=== PATIENT | male | born 1960 | race Caucasian/White ===

== ENCOUNTER → 2020-09-04 15:43 | Outpatient (BNVA) | payer OTHER, SELFPAY | PROVIDERS: PCP Internal Medicine; Visit Provider Anesthesiology | DX: Z76.89 Persons encountering health services in other specified circumstances (principal) ==

== ENCOUNTER 2020-09-15 08:47 | Outpatient (RCR) | payer OTHER, SELFPAY ==
--- NOTE | 2020-09-15 10:34 | MHC.PT.EP ---
[facility] [place] Office [place] Office [place] Office [address] Ace Quiles [address] [phone] F: [phone] F: [phone] F: [phone] F: [phone] Physical Therapy Plan of Care Date of Evaluation: 09/15/20 Date of Surgery: Diagnosis: cervical spondylosis without myelopathy Assessment: 59 y/o RHD male referred to PT with cervical spondylosis without myelopathy or radiculopathy. He has had on/off cervical pain for years that has recently worsened. His pain is located R cervical region and worse with R rotation, R lateral flexion, looking down, bending forward, and lifting. Examination shows decreased cervical AROM, (+) quadrant test, decreased scapular strength, and impaired postural awareness. Recommend PT 2x/week for 3 weeks to address impairments, implement HEP, and optimize functional mobility. He just bought a cervical traction machine that he will bring in next visit to review. 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 Manual therapy to restore motion and function. Therapeutic exercise to improve strength and flexibility. Neuromuscular re-education for posture and balance. Therapeutic activities to return to functional activities of daily living. Electronically signed by: Clary Jimenez PT Please sign and return to therapist. Thank you for your referral.
--- NOTE | 2020-09-19 08:17 | MHC.PT.DC ---
[facility] [place] Office [place] Office [place] Office [address] Ace Quiles 140 [facility] [phone] F: [phone] F: [phone] F: [phone] F: [phone] Physical Therapy Discharge Report Diagnosis: cervical spondylosis without myelopathy Date of Evaluation: 09/15/20 Date of Discharge: 09/19/20 Treatments to Date: 1 Cancellations to Date: 0 No Shows to Date: 0 Discharge Status: Patient Elected to Stop Discharge Summary: Pt called to self discharge as he is worried about the cost, since insurance does not fully cover PT. Electronically signed by: Clary Jimenez PT Please sign and return to therapist. Thank you for your referral.
== END 2020-09-19 08:18 | disposition other institution (70) ==
LOC: HO.PTCHIC 08:47
PROVIDERS: PCP Internal Medicine; Visit Provider Anesthesiology
DX: M47.812 Spondylosis without myelopathy or radiculopathy, cervical region (principal)
CPT/HCPCS: 97110; 97161

== ENCOUNTER 2020-09-23 05:07 | Outpatient (REF) | payer OTHER, SELFPAY ==
--- NOTE | 2020-09-23 07:31 | FL_ITS ---
EXAMINATION: XR FLUOROSCOPY WITH IMAGES CLINICAL INFORMATION: M47.812 - Spondylosis without myelopathy or radiculopathy COMPARISON: MRI cervical spine 05/19/2019 TECHNIQUE: Fluoroscopy performed by Kaitlin David NP. Fluoroscopy time: 0.6 minutes DAP: 4.63 Gycm2 Images: 6 FINDINGS: There are 4 spinal needles overlying the mid to lower right lateral masses cervical spine at 4 levels. There is contrast in the paraspinal soft tissues as well as contrast in the nerve sheath. No visible vascular communication. FL/FL guidance in treatment room IMPRESSION: Fluoroscopy for pain management procedures.
== END 2020-09-23 05:08 | disposition home or self-care (01) ==
LOC: HO.RADIR 05:07
PROVIDERS: Visit Provider Anesthesiology
DX: M47.812 Spondylosis without myelopathy or radiculopathy, cervical region (principal); M54.2 Cervicalgia
CPT/HCPCS: 64490; 64491; J3300; Q9967

== ENCOUNTER → 2020-10-13 16:18 | Outpatient (BNVA) | payer OTHER, SELFPAY | PROVIDERS: PCP Internal Medicine; Visit Provider Anesthesiology | DX: Z76.89 Persons encountering health services in other specified circumstances (principal) ==

== ENCOUNTER → 2020-11-05 14:32 | Outpatient (BNVA) | payer OTHER, SELFPAY | PROVIDERS: PCP Internal Medicine; Visit Provider Anesthesiology ==

== ENCOUNTER 2021-02-09 11:12 | Outpatient (REF) | payer OTHER, SELFPAY ==
[2021-02-09 14:44] LABS: Alanine Aminotransferase 19 U/L (0-40); Anion Gap 17 (12-20); Aspartate Amino Transferase 16 U/L (5-37); Blood Urea Nitrogen 13 mg/dL (9-16); Calcium 9.4 mg/dL (8.4-10.2); Carbon Dioxide 24 mmol/L (22-29); Chloride 103 mmol/L (96-108); Cholesterol 249 mg/dL; Estimated Glomerular Filt Rate > 60; Glucose Fasting 97 mg/dL (60-99); HDL Cholesterol 65 mg/dL; LDL Cholesterol Calculated 161 mg/dl; Sodium 140 mmol/L (135-145); Triglycerides 116 mg/dL
== END 2021-02-09 11:13 | disposition home or self-care (01) ==
LOC: HO.HMGCLDS 11:12
PROVIDERS: PCP Internal Medicine; Visit Provider Internal Medicine
DX: Z00.01 Encounter for general adult medical examination with abnormal findings (principal); I10 Essential (primary) hypertension
CPT/HCPCS: 36415; 80048; 80061; 84450; 84460

== ENCOUNTER 2021-07-25 10:28 | Outpatient (REF) | payer OTHER, SELFPAY ==
[2021-07-25 11:28] LABS: Alanine Aminotransferase 21 U/L (0-40); Aspartate Amino Transferase 13 U/L (5-37); Cholesterol 244 mg/dL; HDL Cholesterol 73 mg/dL; LDL Cholesterol Calculated 140 mg/dl; Triglycerides 156 mg/dL
== END 2021-07-25 10:29 | disposition home or self-care (01) ==
LOC: HO.HMGCLDS 10:28
PROVIDERS: PCP Internal Medicine; Visit Provider Internal Medicine
DX: E78.2 Mixed hyperlipidemia (principal)
CPT/HCPCS: 36415; 80061; 84450; 84460

== ENCOUNTER → 2021-09-30 08:03 | Outpatient (BNVA) | payer OTHER, SELFPAY | PROVIDERS: PCP Internal Medicine; Visit Provider Anesthesiology ==

== ENCOUNTER 2022-03-13 10:47 | Outpatient (REF) | payer OTHER, SELFPAY ==
[2022-03-13 12:08] LABS: Alanine Aminotransferase 26 U/L (0-40); Anion Gap 13 (12-20); Aspartate Amino Transferase 16 U/L (5-37); Blood Urea Nitrogen 18 mg/dL (9-16); Calcium 9.3 mg/dL (8.4-10.2); Carbon Dioxide 27 mmol/L (22-29); Chloride 104 mmol/L (96-108); Cholesterol 261 mg/dL; Estimated Glomerular Filt Rate > 60; Glucose Fasting 93 mg/dL (60-99); HDL Cholesterol 75 mg/dL; LDL Cholesterol Calculated 159 mg/dl; Sodium 140 mmol/L (135-145); Triglycerides 137 mg/dL
== END 2022-03-13 10:48 | disposition home or self-care (01) ==
LOC: HO.HMGCLDS 10:47
PROVIDERS: PCP Internal Medicine; Visit Provider Internal Medicine
DX: E78.2 Mixed hyperlipidemia (principal); I10 Essential (primary) hypertension
CPT/HCPCS: 36415; 80048; 80061; 84450; 84460

== ENCOUNTER 2022-07-16 11:49 | Outpatient (REF) | payer OTHER, SELFPAY ==
[2022-07-16 14:37] LABS: Alanine Aminotransferase 17 U/L (0-40); Aspartate Amino Transferase 18 U/L (5-37); Cholesterol 277 mg/dL; HDL Cholesterol 67 mg/dL; LDL Cholesterol Calculated 182 mg/dl; Triglycerides 140 mg/dL
[2022-07-16 14:59] LABS: PSA,Total (Free>4and<10) 3.31 ng/mL (0.00-4.00)
== END 2022-07-16 11:50 | disposition home or self-care (01) ==
LOC: HO.HMGCLDS 11:49
PROVIDERS: PCP Internal Medicine; Visit Provider Internal Medicine
DX: Z12.5 Encounter for screening for malignant neoplasm of prostate (principal); E78.2 Mixed hyperlipidemia
CPT/HCPCS: 36415; 80061; 82550; 84153; 84450; 84460

== ENCOUNTER 2022-09-08 09:17 | Outpatient (REF) | payer OTHER, SELFPAY ==
[2022-09-08 12:47] LABS: Influenza A PCR NEGATIVE (Negative); Influenza B PCR NEGATIVE (Negative); Resp Syncy Virus RNA Qual PCR POSITIVE (Negative); SARS COV2 PCR INHOUSE NEGATIVE (Negative)
== END 2022-09-08 09:18 | disposition home or self-care (01) ==
LOC: HO.LAB 09:17
PROVIDERS: Visit Provider Nurse Practitioner Family
DX: J32.9 Chronic sinusitis, unspecified (principal); Z20.822 Contact with and (suspected) exposure to COVID-19
CPT/HCPCS: 0241U

== ENCOUNTER 2022-09-08 09:22 | Outpatient (REF) | payer OTHER, SELFPAY ==
--- NOTE | ~2022-09-08 | XR_ITS ---
EXAMINATION: XR KNEE, RIGHT CLINICAL INFORMATION: Pain in the right knee COMPARISON: 01/29/2013 TECHNIQUE: Two views of the right knee. FINDINGS: No fracture or subluxation. Compartmental joint spaces are maintained. No joint effusion. Enthesophyte formation at the patella. The soft tissues are unremarkable. XR/XR knee RT 2V IMPRESSION: No acute abnormality. No significant arthritic changes.
== END 2022-09-08 09:23 | disposition home or self-care (01) ==
LOC: HO.HMGCX 09:22
PROVIDERS: PCP Internal Medicine; Visit Provider Nurse Practitioner Family
DX: M25.561 Pain in right knee (principal)
CPT/HCPCS: 73560

== ENCOUNTER 2022-10-01 10:30 | Outpatient (REF) | payer OTHER, SELFPAY ==
[2022-10-01 12:19] LABS: Alanine Aminotransferase 30 U/L (0-40); Anion Gap 11 (12-20); Aspartate Amino Transferase 15 U/L (5-37); Blood Urea Nitrogen 17 mg/dL (9-16); Calcium 9.3 mg/dL (8.4-10.2); Carbon Dioxide 28 mmol/L (22-29); Chloride 104 mmol/L (96-108); Cholesterol 279 mg/dL; Estimated Glomerular Filt Rate > 60; Glucose Fasting 99 mg/dL (60-99); HDL Cholesterol 81 mg/dL; LDL Cholesterol Calculated 169 mg/dl; Potassium 4.2 mmol/L (3.3-5.1); Sodium 139 mmol/L (135-145); Triglycerides 147 mg/dL
== END 2022-10-01 10:31 | disposition home or self-care (01) ==
LOC: HO.HMGCLDS 10:30
PROVIDERS: PCP Internal Medicine; Visit Provider Internal Medicine
DX: E78.2 Mixed hyperlipidemia (principal); I10 Essential (primary) hypertension
CPT/HCPCS: 36415; 80048; 80061; 84450; 84460

== ENCOUNTER 2023-01-05 12:58 | Outpatient (REF) | payer OTHER, SELFPAY ==
[2023-01-05 14:15] LABS: Estimated Average Glucose 103 mg/dL; Hemoglobin A1c % 5.2 %
[2023-01-05 15:24] LABS: Alanine Aminotransferase 20 U/L (0-40); Anion Gap 14 (12-20); Aspartate Amino Transferase 17 U/L (5-37); Blood Urea Nitrogen 14 mg/dL (9-16); Calcium 9.4 mg/dL (8.4-10.2); Carbon Dioxide 25 mmol/L (22-29); Chloride 105 mmol/L (96-108); Cholesterol 267 mg/dL; Estimated Glomerular Filt Rate > 60; Glucose Fasting 106 mg/dL (60-99); HDL Cholesterol 60 mg/dL; LDL Cholesterol Calculated 172 mg/dl; Potassium 4.1 mmol/L (3.3-5.1); Sodium 140 mmol/L (135-145); Triglycerides 179 mg/dL
[2023-01-05 15:41] LABS: PSA,Total (Free>4and<10) 3.07 ng/mL (0.00-4.00)
== END 2023-01-05 12:59 | disposition home or self-care (01) ==
LOC: HO.HMGCLDS 12:58
PROVIDERS: PCP Internal Medicine; Visit Provider Internal Medicine
DX: Z12.5 Encounter for screening for malignant neoplasm of prostate (principal); I10 Essential (primary) hypertension; R73.01 Impaired fasting glucose; E78.2 Mixed hyperlipidemia
CPT/HCPCS: 36415; 80048; 80061; 83036; 84153; 84450; 84460

== ENCOUNTER → 2023-02-14 14:02 | Outpatient (BNVA) | payer OTHER, SELFPAY | PROVIDERS: PCP Internal Medicine; Visit Provider Nurse Practitioner Family | DX: N40.1 Benign prostatic hyperplasia with lower urinary tract symptoms (principal) | CPT/HCPCS: 51798 ==

== ENCOUNTER 2023-02-18 11:32 | Outpatient (REF) | payer OTHER, SELFPAY ==
--- NOTE | ~2023-02-18 | US_ITS ---
EXAMINATION: US RETROPERITONEAL COMPLETE (RENAL) CLINICAL INFORMATION: Benign prostatic hyperplasia with lower urinary tract symptoms. COMPARISON: None available. TECHNIQUE: Real-time imaging of the kidneys and bladder. FINDINGS: RIGHT KIDNEY: 11.0 x 5.8 x 6.0 cm (SAG x AP x TRV). The kidney is normal in size, contour, and echogenicity. Renal cortical thickness is normal. No calculi or focal parenchymal lesions. No hydronephrosis. LEFT KIDNEY: 12.8 x 5.4 x 5.7 cm (SAG x AP x TRV). The kidney is normal in size, contour, and echogenicity. Renal cortical thickness is normal. No calculi or focal parenchymal lesions. No hydronephrosis. BLADDER: Well distended and normal. Bilateral ureteral jets are demonstrated. Prevoid bladder volume is 155 mL. Postvoid bladder volume is 11 mL. ADDITIONAL FINDINGS: Prostate is enlarged with a volume of 41 mL. US/US retroperitoneal comp IMPRESSION: Prostatomegaly. Unremarkable sonographic appearance of the kidneys and bladder.
[2023-02-18 14:43] LABS: Prostate Specific Antigen 2.13 ng/mL (<0.05-4.0)
== END 2023-02-18 11:33 | disposition home or self-care (01) ==
LOC: HO.HMGCX 11:32
PROVIDERS: PCP Internal Medicine; Visit Provider Nurse Practitioner Family
DX: Z12.5 Encounter for screening for malignant neoplasm of prostate (principal); N40.1 Benign prostatic hyperplasia with lower urinary tract symptoms
CPT/HCPCS: 36415; 76770; 84153

== ENCOUNTER → 2023-04-01 14:33 | Outpatient (BNVA) | payer OTHER, SELFPAY | PROVIDERS: Visit Provider Nurse Practitioner Family | DX: N40.1 Benign prostatic hyperplasia with lower urinary tract symptoms (principal); R35.0 Frequency of micturition; R39.12 Poor urinary stream; R39.9 Unspecified symptoms and signs involving the genitourinary system | CPT/HCPCS: 51798 ==

== ENCOUNTER 2023-04-30 11:38 | Outpatient (REF) | payer OTHER, SELFPAY ==
[2023-04-30 13:49] LABS: Estimated Average Glucose 103 mg/dL; Hemoglobin A1c % 5.2 %
[2023-04-30 13:54] LABS: Anion Gap 15 (12-20); Blood Urea Nitrogen 19 mg/dL (9-16); Calcium 9.4 mg/dL (8.4-10.2); Carbon Dioxide 22 mmol/L (22-29); Chloride 107 mmol/L (96-108); Cholesterol 237 mg/dL; Estimated Glomerular Filt Rate > 60; Glucose Fasting 101 mg/dL (60-99); HDL Cholesterol 54 mg/dL; LDL Cholesterol Calculated 144 mg/dl; Potassium 4.4 mmol/L (3.3-5.1); Sodium 140 mmol/L (135-145); Triglycerides 195 mg/dL
== END 2023-04-30 11:39 | disposition home or self-care (01) ==
LOC: HO.HMGCLDS 11:38
PROVIDERS: PCP Internal Medicine; Visit Provider Internal Medicine
DX: E78.2 Mixed hyperlipidemia (principal); F41.1 Generalized anxiety disorder; I10 Essential (primary) hypertension; R73.01 Impaired fasting glucose
CPT/HCPCS: 36415; 80048; 80061; 83036

== ENCOUNTER 2023-09-09 13:05 | Outpatient (AMB) | payer OTHER, SELFPAY ==
--- NOTE | 2023-09-09 13:10 | MHC.OFFVIS ---
Intake Intake Visit Reasons: 6w/PVR Intake Note: Patient is present for follow up BPH Urology Medications: d/c alfuzosin and flomax, treating with terazosin Blood Thinner: none PVR: 5ml's Vegetable Grader Required: No Accompanied by: Spouse Allergies codeine [CODEINE] Allergy (Unknown, Verified 09/09/23 14:03) FACIAL SWELLING, RASH Medication List - Last Reconciled 09/09/23 by PERICO Mariano- alfuzosin ER 10 mg PO DAILY 90 days apple cider vinegar mg PO clonazepam 0.5 mg PO .QOD PRN 30 days diltiazem HCl ER 240 mg PO DAILY ezetimibe (Zetia) 10 mg PO DAILY lisinopril 10 mg PO QAM meloxicam 15 mg PO DAILY paroxetine HCl ER 25 mg PO DAILY HPI HPI Comments History of Present Illness Details Vijay is a pleasant 62-year-old male patient of Dr. Cesar. He has a past medical history of complex tear of medial meniscus of knee, hypertension, generalized anxiety disorder, impaired fasting glucose, mixed dyslipidemia, spondylosis of cervical spine, and cervicalgia. Patient presents to the office today for follow-up of his urinary issues. Of note, patient was seen approximately 6 months ago at which time Flomax was discontinued and the patient was started on terazosin. In discussion with the patient today he reports feeling Flomax 0.8 mg daily improved lower urinary tract symptoms better than terazosin 5 mg daily however he feels he does not wish to go back on tamsulosin due to retrograde ejaculation. He has also previously trialed alfuzosin 10 mg daily with no improvement lower urinary tract symptoms. Previous workup has included a retroperitoneal ultrasound noting bilateral kidneys with no calculi, lesions, and or hydronephrosis noted. The bladder is well distended and normal. Prostate is enlarged with a volume of 41 mL. PSAs are as follows... 06/22--2.2 07/24--3.3 01/23--3.1 02/22--2.1 He reports somewhat improvement in urinary frequency, urinary urgency and changes to his urinary stream when taking terazosin however feels flomax was more beneficial in doing so. He otherwise denies incontinence, nocturia, hematuria, dysuria, foul-smelling urine, flank pain, fever, and or chills. In office urinalysis results reviewed with the patient today. PVR 5mL. Discussed near future in office cystoscopy if symptoms persist and/or worsen. Discussed attempting to increase terazosin to 10 mg daily. He discusses having had recent back surgery the week of . Patient otherwise denies any urinary issues or concerns at this time. [facility] Medical History Generalized anxiety disorder Impaired fasting glucose Right knee pain Complex tear of medial meniscus of knee Shoulder pain Mixed dyslipidemia Essential hypertension Spondylosis of cervical spine Cervicalgia Surgical History H/O elbow surgery History of appendectomy H/O cervical spine surgery Hx of colonoscopy Family History Father Myocardial infarction HTN (hypertension) Mental health disorder Substance use disorder Mother Myocardial infarction Multiple sclerosis Brother Substance use disorder Sister Substance use disorder Social History Housing: House Alcohol intake: current Alcohol intake frequency: a few times a month Patient Tobacco Use Status: Never used Tobacco e-Cigarette/Vaping Use: Never Used service: No Current occupational status: employed Cognitive needs: No Hearing needs: No Vision needs: No Review of Systems Const All systems reviewed & are unremarkable except as noted in HPI and below Reports no additional complaints Eyes Reports no additional complaints ENT Reports no additional complaints Card Reports as per HPI Resp Reports no additional complaints GI Reports no additional complaints Reports as per HPI Musc Reports as per HPI Neuro Reports no additional complaints Psych Reports as per HPI Endo Reports as per HPI Florian/Lymph Reports no additional complaints Aller/Immun Reports no additional complaints Physical Exam Const General: cooperative, healthy appearing, comfortable, no acute distress, well developed, alert and awake Orientation/consciousness: patient oriented x3 Limitations: no limitations HEENT Head: Yes normal to inspection, Yes normocephalic and Yes atraumatic Ears: hearing grossly normal bilaterally Eyes General: appearance normal, both eyes and all related structures Neck Neck: Yes normal visual inspection and Yes trachea midline Chest Chest palpation & inspection: normal inspection of the chest Resp Effort & Inspection: normal respiratory effort and able to speak in complete sentences Cardio Rate: regular rate GI Inspection: Yes normal to inspection General: Yes no CVA tenderness Back/Spine/Pelvis Back: no CVA tenderness Skin General skin exam: no rashes or lesions noted Neuro General: patient oriented x3 Extrem General: Yes normal to inspection Psych Appearance: grossly normal and well kempt Mental Status: mental status grossly normal Speech and movement: Normal speech and movement present and Clear speech present Affect: normal affect Attitude: cooperative Thought process: Normal thought process present Thought content: Normal thought content present Insight: Good insight present (Psych) Judgement: Good judgement present (Psych) Office Procedures Post Void Residual Post Residual Void Post Void Residual (PVR): 5 23156-[id number] Void Residual by ultrasound Results AMB Urinalysis, Automated UA Leukoctes 15 Sarina/uL Last Edit by [email or web address] on 09/09/23 13:37 UA Nitrite Negative Last Edit by [email or web address] on 09/09/23 13:37 UA Urobilinogen 0.2 mg/dL Last Edit by [email or web address] on 09/09/23 13:37 UA Protein 0 mg/dL Last Edit by [email or web address] on 09/09/23 13:37 UA pH 6.0 Last Edit by [email or web address] on 09/09/23 13:37 UA Blood 0 John/uL Last Edit by [email or web address] on 09/09/23 13:37 UA Specific [place] 1.020 Last Edit by [email or web address] on 09/09/23 13:37 UA Ketone Negative Last Edit by [email or web address] on 09/09/23 13:37 UA Bilirubin 0 mg/dL Last Edit by [email or web address] on 09/09/23 13:37 UA Glucose 0 mg/dL Last Edit by [email or web address] on 09/09/23 13:37 Results Reviewed Results Reviewed: Laboratory Last Values Urine pH (Auto) 6.0 09/09/23 13:12 Specific [place] (Auto) 1.020 09/09/23 13:12 Urine Protein (Auto) 0 mg/dL 09/09/23 13:12 Glucose (UA)(Auto) 0 mg/dL 09/09/23 13:12 Urine Ketones (Auto) Negative 09/09/23 13:12 Urine Blood (Auto) 0 John/uL 09/09/23 13:12 Urine Nitrite (Auto) Negative 09/09/23 13:12 Urine Bilirubin (Auto) 0 mg/dL 09/09/23 13:12 Urine Urobilinogen (Auto) 0.2 mg/dL 09/09/23 13:12 Leukocyte Esterase (Auto) 15 Sarina/uL 09/09/23 13:12 Assessment & Plan Assessment & Plan (1) Weak urinary stream: Code(s): R39.12 - Poor urinary stream (2) Lower urinary tract symptoms: Code(s): R39.9 - Unspecified symptoms and signs involving the genitourinary system Plan In office urinalysis results reviewed with the patient today; as noted above. PVR 5 mL. Patient reports retrograde ejaculation with Flomax it had no improvement with alfuzosin 10 mg previously. Patient reports somewhat improvement in lower urinary tract symptoms on 5 mg of terazosin daily however feels Flomax was more helpful Will increase terazosin to 10 mg daily. Discussed at length potential causes for lower urinary tract symptoms patient is experiencing. Discussed retroperitoneal ultrasound noting enlarged prostate could benefit from finasteride; however patient would like to think about this at this time; information provided Discussed near future in office cystoscopy and or urodynamics for further assessment evaluation. Follow-up in 6 weeks with PVR; or sooner with any issues, concerns, and or questions. Orders: Orders AMB Urinalysis Automated 09/09/23 Z13.9 - Encounter for screening, unspecified AMB Post Void Residual by ultrasound 09/09/23 R39.12 - Poor urinary stream Medications: New terazosin 10 mg PO BEDTIME 30 caps 1RF 30 days N13.8 - Other obstructive and reflux uropathy, N40.1 - Benign prostatic hyperplasia with lower urinary tract symptoms Discontinued terazosin Discontinued Reason: Doctor's Order 5 mg PO BEDTIME 90 days 90 caps 1RF N40.1 - Benign prostatic hyperplasia with lower urinary tract symptoms, R35.0 - Frequency of micturition Patient Instructions: The patient had an opportunity to ask questions regarding the treatment plan. All questions were answered. Physical exam, labs, and imaging were discussed and reviewed in detail. As well as risks, benefits, and discussion of treatment choices. No major barriers to understanding were identified. The patient expressed understanding and agreement with the above treatment plan. The patient was made aware they should contact our office by phone for worsening of their current condition, the appearance of new symptoms, or with any questions or concerns. Compliance is encouraged with any medications and follow up testing that is ordered. It is a privilege to be allowed the opportunity to participate in? your urological care.? Again, if you have any questions or concerns If you have any questions or concerns please do not hesitate to contact me. The office is [phone]. This note is constructed using voice recognition software. While every effort has been made to ensure accuracy aeronautical design engineer errors may have been included. Yours sincerely, PERICO Mariano-FAY Coding Level of Care Code Est Pt Level 3 (01593) Diagnoses Weak urinary stream R39.12 Lower urinary tract symptoms R39.9 CPT Codes Post Residual Void - PVR CPT Code: 21564-Wyxz Void Residual by ultrasound ([id number])
== END 2023-09-09 14:28 | disposition home or self-care (01) ==
PROVIDERS: PCP Internal Medicine; Visit Provider Nurse Practitioner Family
DX: R39.12 Poor urinary stream (principal); R39.9 Unspecified symptoms and signs involving the genitourinary system
CPT/HCPCS: 99213

== ENCOUNTER → 2023-09-09 13:05 | Outpatient (BNVA) | payer OTHER, SELFPAY | PROVIDERS: PCP Internal Medicine; Visit Provider Nurse Practitioner Family | DX: R39.12 Poor urinary stream (principal); R39.9 Unspecified symptoms and signs involving the genitourinary system | CPT/HCPCS: 51798; 81003 ==

== ENCOUNTER 2023-10-31 14:44 | Outpatient (REF) | payer OTHER, SELFPAY ==
[2023-10-31 17:05] LABS: Prostate Specific Antigen 2.14 ng/mL (<0.05-4.0)
== END 2023-10-31 14:45 | disposition home or self-care (01) ==
LOC: HO.LAB 14:44
PROVIDERS: PCP Internal Medicine; Visit Provider Nurse Practitioner Family
DX: Z12.5 Encounter for screening for malignant neoplasm of prostate (principal); N40.0 Benign prostatic hyperplasia without lower urinary tract symptoms; R39.12 Poor urinary stream; R39.9 Unspecified symptoms and signs involving the genitourinary system; N39.43 Post-void dribbling
CPT/HCPCS: 36415; 51798; 81003; 84153

== ENCOUNTER 2023-10-31 14:44 | Outpatient (AMB) | payer OTHER, SELFPAY ==
--- NOTE | 2023-10-31 14:48 | A.OFFVIS_ITS ---
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 Cesar. He has a past medical history of complex tear of medial meniscus of knee, hypertension, generalized anxiety disorder, impaired fasting glucose, mixed dyslipidemia, spondylosis of cervical spine, and cervicalgia. Patient presents to the office today for follow-up of his urinary issues. Of note, patient was seen approximately 6 months ago at which time he was started back on Flomax. Of note, patient had previously trialed terazosin as well as alfuzosin however experienced dizziness, retrograde ejaculation, and congestion therefore he was started back on Flomax as he did find this helpful in his lower urinary tract symptoms. He reports compliance with 0.4 mg of Flomax daily. He does continue to report urinary dribbling, urinary frequency, and changes to urinary stream however does feel urinary symptoms are somewhat improved however does feel they could be better. Previous workup has included a retroperitoneal ultrasound noting bilateral kidneys with no calculi, lesions, and or hydronephrosis noted. The bladder is well distended and normal. Prostate is enlarged with a volume of 41 mL. PSAs are as follows... 06/22--2.2 07/24--3.3 01/23--3.1 02/22--2.1 He otherwise denies incontinence, nocturia, hematuria, dysuria, foul-smelling urine, flank pain, fever, and or chills. In office urinalysis results reviewed with the patient today. PVR 15mL. Discussed near future in office cystoscopy if symptoms persist and/or worsen. Discussed attempting to increase flomax to 0.8mg daily. He discusses having had recent back surgery the week of . Patient otherwise denies any urinary issues or concerns at this time. [facility] Medical History Generalized anxiety disorder Impaired fasting glucose Right knee pain Complex tear of medial meniscus of knee Shoulder pain Mixed dyslipidemia Essential hypertension Spondylosis of cervical spine Cervicalgia Surgical History H/O elbow surgery History of appendectomy H/O cervical spine surgery Hx of colonoscopy Family History Father Myocardial infarction HTN (hypertension) Mental health disorder Substance use disorder Mother Myocardial infarction Multiple sclerosis Brother Substance use disorder Sister Substance use disorder Social History Housing: House Alcohol intake: current Alcohol intake frequency: a few times a month Patient Tobacco Use Status: Never used Tobacco e-Cigarette/Vaping Use: Never Used service: No Current occupational status: employed Cognitive needs: No Hearing needs: No Vision needs: No Physical Exam Const General: cooperative, healthy appearing, comfortable, no acute distress, well developed, alert and awake Orientation/consciousness: patient oriented x3 Limitations: no limitations HEENT Head: Yes normal to inspection, Yes normocephalic and Yes atraumatic Ears: hearing grossly normal bilaterally Eyes General: appearance normal, both eyes and all related structures Neck Neck: Yes normal visual inspection and Yes trachea midline Chest Chest palpation & inspection: normal inspection of the chest Resp Effort & Inspection: normal respiratory effort and able to speak in complete sentences Cardio Rate: regular rate GI Inspection: Yes normal to inspection General: Yes no CVA tenderness Back/Spine/Pelvis Back: no CVA tenderness Skin General skin exam: no rashes or lesions noted Neuro General: patient oriented x3 Extrem General: Yes normal to inspection Psych Appearance: grossly normal and well kempt Mental Status: mental status grossly normal Speech and movement: Normal speech and movement present and Clear speech present Affect: normal affect Attitude: cooperative Thought process: Normal thought process present Thought content: Normal thought content present Insight: Good insight present (Psych) Judgement: Good judgement present (Psych) Office Procedures Post Void Residual Post Residual Void Post Void Residual (PVR): 15 [id number] Void Residual by ultrasound Results AMB Urinalysis, Automated UA Leukoctes 0 Sarina/uL Last Edit by Filemon Pizarro on 10/31/23 15:06 UA Nitrite Negative Last Edit by [employer] Pizarro on 10/31/23 15:06 UA Urobilinogen 0.2 mg/dL Last Edit by [employer] on 10/31/23 15:06 UA Protein 15 mg/dL Last Edit by [employer] on 10/31/23 15:06 UA pH 6.0 Last Edit by [employer] on 10/31/23 15:06 UA Blood 0 John/uL Last Edit by [employer] on 10/31/23 15:06 UA Specific [place] 1.020 Last Edit by [employer] on 10/31/23 15:06 UA Ketone Negative Last Edit by [employer] on 10/31/23 15:06 UA Bilirubin 0 mg/dL Last Edit by [employer] on 10/31/23 15:06 UA Glucose 0 mg/dL Last Edit by [employer] on 10/31/23 15:06 Results Reviewed Results Reviewed: Laboratory Last Values Urine pH (Auto) 6.0 10/31/23 14:49 Specific [place] (Auto) 1.020 10/31/23 14:49 Urine Protein (Auto) 15 mg/dL 10/31/23 14:49 Glucose (UA)(Auto) 0 mg/dL 10/31/23 14:49 Urine Ketones (Auto) Negative 10/31/23 14:49 Urine Blood (Auto) 0 John/uL 10/31/23 14:49 Urine Nitrite (Auto) Negative 10/31/23 14:49 Urine Bilirubin (Auto) 0 mg/dL 10/31/23 14:49 Urine Urobilinogen (Auto) 0.2 mg/dL 10/31/23 14:49 Leukocyte Esterase (Auto) 0 Sarina/uL 10/31/23 14:49 Assessment & Plan Assessment & Plan (1) Prostatic enlargement: Code(s): N40.0 - Benign prostatic hyperplasia without lower urinary tract symptoms (2) Weak urinary stream: Code(s): R39.12 - Poor urinary stream (3) Lower urinary tract symptoms: Code(s): R39.9 - Unspecified symptoms and signs involving the genitourinary system (4) Urinary dribbling: Code(s): N39.43 - Post-void dribbling Plan In office urinalysis results reviewed with the patient today; as noted above. PVR 15 mL. Will increase Flomax to 0.8 mg daily Discussed pelvic floor exercises to assist with urinary dribbling Discussed at length potential causes for lower urinary tract symptoms patient is experiencing. Discussed retroperitoneal ultrasound noting enlarged prostate could benefit from finasteride; however patient would like to think about this at this time; information provided Discussed near future in office cystoscopy and or urodynamics for further assessment evaluation. Will obtain PSA for further assessment evaluation Follow-up in 4-6 weeks with PVR and PSA to be completed prior; or sooner with any issues, concerns, and or questions. Orders: Orders Prostate Specific Antigen Today N40.0 - Benign prostatic hyperplasia without lower urinary tract symptoms AMB Urinalysis Automated Today Z13.9 - Encounter for screening, unspecified AMB Post Void Residual by ultrasound Today R39.12 - Poor urinary stream Medications: Refilled tamsulosin (Flomax) 0.8 mg (2 x 0.4 mg) PO BEDTIME 90 days 180 caps 3RF Patient Instructions: The patient had an opportunity to ask questions regarding the treatment plan. All questions were answered. Physical exam, labs, and imaging were discussed and reviewed in detail. As well as risks, benefits, and discussion of treatment choices. No major barriers to understanding were identified. The patient expressed understanding and agreement with the above treatment plan. The patient was made aware they should contact our office by phone for worsening of their current condition, the appearance of new symptoms, or with any questions or concerns. Compliance is encouraged with any medications and follow up testing that is ordered. It is a privilege to be allowed the opportunity to participate in? your urological care.? Again, if you have any questions or concerns If you have any questions or concerns please do not hesitate to contact me. The office is [phone]. This note is constructed using voice recognition software. While every effort has been made to ensure accuracy maxillofacial prosthodontist errors may have been included. Yours sincerely, AURELIA Mariano Coding Level of Care Code Est Pt Level 3 (76885) Diagnoses Prostatic enlargement N40.0 Weak urinary stream R39.12 Lower urinary tract symptoms R39.9 Urinary dribbling N39.43 CPT Codes Post Residual Void - PVR CPT Code: 58056-Tyfd Void Residual by ultrasound ([id number])
== END 2023-10-31 15:43 | disposition home or self-care (01) ==
PROVIDERS: PCP Internal Medicine; Visit Provider Nurse Practitioner Family
DX: N40.0 Benign prostatic hyperplasia without lower urinary tract symptoms (principal); R39.12 Poor urinary stream; R39.9 Unspecified symptoms and signs involving the genitourinary system; N39.43 Post-void dribbling; Z13.9 Encounter for screening, unspecified
CPT/HCPCS: 99213

== ENCOUNTER 2023-11-19 11:08 | Outpatient (REF) | payer OTHER, SELFPAY ==
[2023-11-19 13:58] LABS: Alanine Aminotransferase 14 U/L (0-40); Albumin Level 3.8 g/dL (3.5-5.0); Alkaline Phosphatase 63 U/L (39-117); Anion Gap 11 (12-20); Aspartate Amino Transferase 12 U/L (5-37); Bilirubin Total 0.4 mg/dL (0.0-1.0); Blood Urea Nitrogen 15 mg/dL (9-16); Calcium 9.2 mg/dL (8.4-10.2); Carbon Dioxide 27 mmol/L (22-29); Chloride 105 mmol/L (96-108); Cholesterol 238 mg/dL (<200); Estimated Glomerular Filt Rate > 60; Glucose Fasting 99 mg/dL (60-99); HDL Cholesterol 63 mg/dL (>40); LDL Cholesterol Calculated 142 mg/dL (<100); Potassium 3.9 mmol/L (3.3-5.1); Sodium 139 mmol/L (135-145); Total Protein 6.8 g/dL (6.5-8.0); Triglycerides 169 mg/dL (<150)
[2023-11-19 14:13] LABS: Vitamin D 25-OH Total 28.5 ng/mL (>30)
== END 2023-11-19 11:09 | disposition home or self-care (01) ==
LOC: HO.HMGCLDS 11:08
PROVIDERS: PCP Internal Medicine; Visit Provider Internal Medicine
DX: I10 Essential (primary) hypertension (principal); E78.2 Mixed hyperlipidemia; N40.0 Benign prostatic hyperplasia without lower urinary tract symptoms
CPT/HCPCS: 36415; 80053; 80061; 82306

== ENCOUNTER 2023-12-14 09:49 | Outpatient (REF) | payer OTHER, SELFPAY ==
--- NOTE | ~2023-12-14 | XR_ITS ---
EXAMINATION: XR LUMBOSACRAL SPINE WITH OBLIQUES CLINICAL INFORMATION: Radiculopathy COMPARISON: None available. TECHNIQUE: 4 views of the lumbar spine FINDINGS: 5 nonrib-bearing lumbar-type vertebral bodies. No acute visible fracture or dislocation. Grade 1 anterolisthesis of L3 on L4 without overt dynamic instability on flexion-extension views. Vertebral bodies and disc spaces are otherwise maintained. Posterior elements are intact. Paraspinal soft tissues are unremarkable. Visualized bowel gas is unremarkable. XR/XR lumbar spine 4V min IMPRESSION: 1. No acute visible fracture or dislocation. 2. Grade 1 anterolisthesis of L3 on L4 without overt dynamic instability on flexion-extension views.
== END 2023-12-14 09:50 | disposition home or self-care (01) ==
LOC: HO.HOSX 09:49
PROVIDERS: PCP Internal Medicine; Visit Provider Physician Assistant
DX: M54.16 Radiculopathy, lumbar region (principal)
CPT/HCPCS: 72110

== ENCOUNTER 2023-12-14 09:49 | Outpatient (AMB) | payer OTHER, SELFPAY ==
--- NOTE | 2023-12-14 10:12 | HO.SPINEOV ---
Intake Intake Visit Reasons: 2nd opinion for L3 comp Intake Note: Mr. Scales is here today for a 2nd opinion for L3 Comp. 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 He has a chief complaint of low back pain with radiation over his left anterior thigh across his anterior knee terminating in his anterior tibialis. He states that this happened shortly after having his last lumbar decompression surgery in October of this year. He has a history of a L2-3 teresa-laminectomy, and bilateral laminectomies from L3-S1. He also has a history of a failed left-sided ulnar nerve decompression where he had the unfortunate experience of having his ulnar nerve severed during the surgery. He states that his laminectomy procedures were completed by Dr. Jeb Antunez in [place], [place]. He reports that walking for extended periods of time exacerbates his pain (specifically the pain stops him from walking), and that lying flat is the most comfortable position for him and helps to alleviate his pain. He has been to a chiropractor in the past but found that was not helpful and caused him additional pain. He is tried at-home stretching/exercise regimens with very minimal relief of symptoms. He has not currently established with a residential interior designer or anyone from pain management. PMH: High blood pressure, high cholesterol. Social hx: The patient does not smoke, reports no substance use. Medications: Zetia, paroxetine, diltiazem, lisinopril. Allergies: Codeine. Physical exam: The patient has 5/5 strength in his upper and lower extremities. He does elicit pain to engaging full strength in his left side with knee extension and hip flexion. His sensation is grossly intact. His reflexes are 2+ intact. He is able to ambulate well and rises from a seated position without difficulty. (-) Dove's, (-) clonus, (-) straight leg raise bilaterally. Imaging review: MRI of the lumbar spine completed at [facility] shows evidence of prior laminectomies from L2-S1. He has severe left-sided foraminal stenosis at the L4 foramen. This is likely due to the severe degenerative disc disease and grade 1 spondylolithesis seen a L3-4. There is also a mild dextroscoliosis that has developed at L3-4 as a likely result of the instability. Both the listhesis and scoliosis her best seen on the set of lumbar x-rays that I obtained in office today. Impression: Vijay is a pleasant 63-year-old male who comes in today with a chief complaint of low back pain with radiation into his left lower extremity. He describes his pain in distribution that is classic for an L4 radiculopathy. Unfortunately due to his prior history of multiple laminectomies in the lumbar spine he is likely become somewhat destabilized and has developed a spondylolisthesis as a result of this. The patient was evaluated alongside Dr. Crocker who recommended a L3-4 Transkambin lumbar fusion to address the severely degenerated disc and decompress the L4 nerve root. Vijay was placed on the surgical schedule for 02/14/2024. Both Dr. Crocker and I answered all of Vijay's questions to the best of our ability. He asked many questions regarding the different types of fusions and how the surgery would be performed. Vijay was given risk and benefits of surgery including but not limited to infection, hematoma, nerve injury, durotomy, weakness, bowel/bladder injury, persistent pain, as well as the option to continue with conservative treatment and the patient wishes to proceed with surgery. He is aware he should stop NSAIDs 7 days prior to surgery. All questions were answered to the best of our ability. If there is anything about this patients medical history that we have overlooked or concerns you have about us proceeding with surgery we would appreciate any input you can offer. Thank you for allowing us to care for your patient. The total time spent with this visit with this patient was 65 minutes reviewing history, physical exam, MRI imaging review, and implementation of treatment plan or further diagnostic testing Enrico Crocker MD,PhD [facility] Orders: Orders XR lumbar spine 4V min Today M54.16 - Radiculopathy, lumbar region Coding Level of Care Code New Pt Level 5 (72630) Diagnoses Radiculopathy, lumbar region M54.16
== END 2023-12-14 11:27 | disposition home or self-care (01) ==
PROVIDERS: PCP Internal Medicine; Visit Provider Physician Assistant
DX: M54.16 Radiculopathy, lumbar region (principal)
CPT/HCPCS: 99205

== ENCOUNTER 2024-02-14 14:45 | Outpatient (AMB) | payer OTHER, SELFPAY ==
--- NOTE | 2024-02-14 14:47 | MHC.OFFVIS ---
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 Cesar who was accompanied by his significant other at today's office visit. He has a past medical history of complex tear of medial meniscus of knee, hypertension, generalized anxiety disorder, impaired fasting glucose, mixed dyslipidemia, spondylosis of cervical spine, and cervicalgia. Patient presents to the office today for follow-up of his urinary issues. In discussion with the patient today he reports to be doing and feeling well. He reports to be happy with current voiding parameters on 0.8 mg of Flomax daily. He reports noting if he skips a dose of Flomax he experiences urinary hesitancy and feelings of incomplete bladder emptying. He has previously trialed terazosin as well as alfuzosin however however experienced dizziness, retrograde ejaculation, and congestion. Of note, patient was seen approximately 6 months ago at which time he was started back on Flomax. Of note, patient had previously trialed terazosin as well as alfuzosin however experienced dizziness, retrograde ejaculation, and congestion. Previous workup has included a retroperitoneal ultrasound noting bilateral kidneys with no calculi, lesions, and or hydronephrosis noted. The bladder is well distended and normal. Prostate is enlarged with a volume of 41 mL. PSAs are as follows... 06/22 2.2, 07/24 3.3, 01/23 3.1, 02/22 2.1, 10/26 2.1 He otherwise denies incontinence, nocturia, hematuria, dysuria, foul-smelling urine, flank pain, fever, and or chills. In office urinalysis results reviewed with the patient today. PVR 37 mL Discussed near future in office cystoscopy if symptoms arise and/or worsen. Patient otherwise denies any urinary issues or concerns at this time. [facility] Medical History Generalized anxiety disorder Impaired fasting glucose Right knee pain Complex tear of medial meniscus of knee Shoulder pain Mixed dyslipidemia Essential hypertension Spondylosis of cervical spine Cervicalgia Surgical History H/O elbow surgery History of appendectomy H/O cervical spine surgery Hx of colonoscopy Family History Father Myocardial infarction HTN (hypertension) Mental health disorder Substance use disorder Mother Myocardial infarction Multiple sclerosis Brother Substance use disorder Sister Substance use disorder Social History Housing: House Alcohol intake: current Alcohol intake frequency: a few times a month Patient Tobacco Use Status: Never used Tobacco e-Cigarette/Vaping Use: Never Used service: No Current occupational status: employed Cognitive needs: No Hearing needs: No Vision needs: No Review of Systems Const All systems reviewed & are unremarkable except as noted in HPI and below Reports no additional complaints Eyes Reports no additional complaints ENT Reports no additional complaints Card Reports as per HPI Resp Reports no additional complaints GI Reports no additional complaints Reports as per HPI Musc Reports as per HPI Neuro Reports no additional complaints Psych Reports as per HPI Endo Reports as per HPI Florian/Lymph Reports no additional complaints Aller/Immun Reports no additional complaints Physical Exam Const General: cooperative, healthy appearing, comfortable, no acute distress, well developed, alert and awake Orientation/consciousness: patient oriented x3 Limitations: no limitations HEENT Head: Yes normal to inspection, Yes normocephalic and Yes atraumatic Ears: hearing grossly normal bilaterally Eyes General: appearance normal, both eyes and all related structures Neck Neck: Yes normal visual inspection and Yes trachea midline Chest Chest palpation & inspection: normal inspection of the chest Resp Effort & Inspection: normal respiratory effort and able to speak in complete sentences Cardio Rate: regular rate GI Inspection: Yes normal to inspection General: Yes no CVA tenderness Back/Spine/Pelvis Back: no CVA tenderness Skin General skin exam: no rashes or lesions noted Neuro General: patient oriented x3 Extrem General: Yes normal to inspection Psych Appearance: grossly normal and well kempt Mental Status: mental status grossly normal Speech and movement: Normal speech and movement present and Clear speech present Affect: normal affect Attitude: cooperative Thought process: Normal thought process present Thought content: Normal thought content present Insight: Fair insight present (Psych) Judgement: Fair judgement present (Psych) Office Procedures Post Void Residual Post Residual Void Post Void Residual (PVR): 37 [id number] Void Residual by ultrasound Results AMB Urinalysis, Automated UA Leukoctes 0 Sarina/uL Last Edit by [employer] on 02/14/24 15:22 UA Nitrite Negative Last Edit by [employer] on 02/14/24 15:22 UA Urobilinogen 0.2 mg/dL Last Edit by [employer] on 02/14/24 15:22 UA Protein 0 mg/dL Last Edit by [employer] on 02/14/24 15:22 UA pH 6.0 Last Edit by [employer] on 02/14/24 15:22 UA Blood 0 John/uL Last Edit by [employer] on 02/14/24 15:22 UA Specific [place]heim 1.015 Last Edit by [employer] on 02/14/24 15:22 UA Ketone Negative Last Edit by [employer] on 02/14/24 15:22 UA Bilirubin 0 mg/dL Last Edit by [employer] on 02/14/24 15:22 UA Glucose 0 mg/dL Last Edit by [employer] on 02/14/24 15:22 Results Reviewed Results Reviewed: Laboratory Last Values Urine pH (Auto) 6.0 02/14/24 14:55 Specific [place] (Auto) 1.015 02/14/24 14:55 Urine Protein (Auto) 0 mg/dL 02/14/24 14:55 Glucose (UA)(Auto) 0 mg/dL 02/14/24 14:55 Urine Ketones (Auto) Negative 02/14/24 14:55 Urine Blood (Auto) 0 John/uL 02/14/24 14:55 Urine Nitrite (Auto) Negative 02/14/24 14:55 Urine Bilirubin (Auto) 0 mg/dL 02/14/24 14:55 Urine Urobilinogen (Auto) 0.2 mg/dL 02/14/24 14:55 Leukocyte Esterase (Auto) 0 Sarina/uL 02/14/24 14:55 Assessment & Plan Assessment & Plan (1) Prostatic enlargement: Code(s): N40.0 - Benign prostatic hyperplasia without lower urinary tract symptoms Category: Medical (2) Weak urinary stream: Code(s): R39.12 - Poor urinary stream Category: Medical (3) Lower urinary tract symptoms: Code(s): R39.9 - Unspecified symptoms and signs involving the genitourinary system Category: Medical (4) Urinary dribbling: Code(s): N39.43 - Post-void dribbling Category: Medical Plan In office urinalysis results reviewed with the patient today; as noted above. PVR 37 mLs. Patient reports be happy with current voiding parameters on 0.8 mg of Flomax daily will continue. Recent PSA results reviewed with the patient today; as noted above. Patient currently denies any bothersome urinary issues or concerns. Discussed retroperitoneal ultrasound noting enlarged prostate could benefit from finasteride; however patient would like to think about this at this time; information provided Discussed near future in office cystoscopy and or urodynamics for further assessment evaluation if symptoms arise and or worsen. Follow-up in 6 months with PVR; if not sooner with any issues, concerns, and or questions. Orders: Orders AMB Post Void Residual by ultrasound Today R39.12 - Poor urinary stream AMB Urinalysis Automated Today Z13.9 - Encounter for screening, unspecified Patient Instructions: The patient had an opportunity to ask questions regarding the treatment plan. All questions were answered. Physical exam, labs, and imaging were discussed and reviewed in detail. As well as risks, benefits, and discussion of treatment choices. No major barriers to understanding were identified. The patient expressed understanding and agreement with the above treatment plan. The patient was made aware they should contact our office by phone for worsening of their current condition, the appearance of new symptoms, or with any questions or concerns. Compliance is encouraged with any medications and follow up testing that is ordered. It is a privilege to be allowed the opportunity to participate in? your urological care.? Again, if you have any questions or concerns If you have any questions or concerns please do not hesitate to contact me. The office is [phone]. This note is constructed using voice recognition software. While every effort has been made to ensure accuracy dimethylaniline sulfator operator errors may have been included. Yours sincerely, PERICO Mariano-FAY Coding Level of Care Code Est Pt Level 3 (09519) Diagnoses Prostatic enlargement N40.0 Weak urinary stream R39.12 Lower urinary tract symptoms R39.9 Urinary dribbling N39.43 CPT Codes Post Residual Void - PVR CPT Code: 90605-[id number] Void Residual by ultrasound ([id number])
== END 2024-02-14 15:31 | disposition home or self-care (01) ==
PROVIDERS: PCP Internal Medicine; Visit Provider Nurse Practitioner Family
DX: N40.0 Benign prostatic hyperplasia without lower urinary tract symptoms (principal); R39.12 Poor urinary stream; R39.9 Unspecified symptoms and signs involving the genitourinary system; N39.43 Post-void dribbling; Z13.9 Encounter for screening, unspecified
CPT/HCPCS: 99213

== ENCOUNTER → 2024-02-14 14:45 | Outpatient (BNVA) | payer OTHER, SELFPAY | PROVIDERS: PCP Internal Medicine; Visit Provider Nurse Practitioner Family | DX: N40.1 Benign prostatic hyperplasia with lower urinary tract symptoms (principal); R39.12 Poor urinary stream; N39.43 Post-void dribbling; R39.9 Unspecified symptoms and signs involving the genitourinary system | CPT/HCPCS: 51798; 81003 ==

== ENCOUNTER 2024-02-22 08:54 | Outpatient (AMB) | payer OTHER, SELFPAY ==
--- NOTE | 2024-02-22 08:54 | A.OFFPC_ITS ---
Vital Signs 02/22/24 08:55 Height 6 ft 1 in Weight 214 lb BMI 28.2 BP 128/70 Blood Pressure Location Lt brachial Position Sitting Pulse 92 Pulse Source Pulse Oximeter Pulse Oximetry (%) 98 Oxygen Delivery Method Room Air Intake Visit Reasons: Annual PE Intake Note: Pt is here today for his PE: Last colonoscopy 09/03/16 Allergies codeine [CODEINE] Allergy (Unknown, Verified 02/22/24 09:23) FACIAL SWELLING, RASH Medication List - Last Reconciled 02/22/24 by PERICO Santana clonazepam 0.5 mg PO .QOD PRN 30 days cyclobenzaprine 10 mg PO TID diltiazem HCl ER 240 mg PO DAILY ezetimibe (Zetia) 10 mg PO DAILY lisinopril 10 mg PO QAM paroxetine HCl ER 25 mg PO DAILY pregabalin 75 mg PO TID tamsulosin (Flomax) 0.8 mg (2 x 0.4 mg) PO BEDTIME 90 days Tobacco use date assessed: 02/22/24 Dental Screening Dental Screen Date: 02/22/24 Did you have a dental visit in the last 12 months?: Yes Did you have a dental problem in the last 6 months where you did not have access to dental care?: Yes Was dental information given to patient?: Patient has dentist HPI HPI Comments History of Present Illness Details Patient is a 63-year-old male in today for physical exam Patient's last colonoscopy was in 2015, will be due for next in 2025. Patient declines all immunizations today. Patient given healthcare proxy for to fill out returned office. Patient had a PSA drawn 3 months prior. BPH-patient is establish care Urology. Utilizes tamsulosin. Hypertension-controlled with medications. Bilateral hand neuropathy-patient has establish care with hand specialist Dr. Hernadez Hyperlipidemia-patient currently utilizing Ezetimibe. Will redraw. Lower back pain-patient has long history of lower back pain and several surgeries that he has performed down in [place]. Patient has neuropathy down left leg. Has upcoming appointment with spine provider to increase pregabalin dosage. Anxiety and depression-patient currently utilizing paroxetine with good effect. States he lost contact with previous psychiatric provider, patient will meet with in office liaison to establish new psychiatry care. [facility] Medical History Generalized anxiety disorder Impaired fasting glucose Right knee pain Complex tear of medial meniscus of knee Shoulder pain Mixed dyslipidemia Essential hypertension Spondylosis of cervical spine Cervicalgia Surgical History H/O elbow surgery History of appendectomy H/O cervical spine surgery Hx of colonoscopy Family History Father Myocardial infarction HTN (hypertension) Mental health disorder Substance use disorder Mother Myocardial infarction Multiple sclerosis Brother Substance use disorder Sister Substance use disorder Social History Housing: House Alcohol intake: current Alcohol intake frequency: a few times a month Patient Tobacco Use Status: Never used Tobacco e-Cigarette/Vaping Use: Never Used service: No Current occupational status: employed Cognitive needs: No Hearing needs: No Vision needs: No Questionnaire PHQ-9 Over the last 2 weeks, how often have you been bothered by any of the following problems? 1. Little interest or pleasure in doing things: not at all 2. Feeling down, depressed, or hopeless: not at all 3. Trouble falling or staying asleep, or sleeping too much: not at all 4. Feeling tired or having little energy: not at all 5. Poor appetite or overeating: not at all 6. Feeling bad about yourself - or that you are a failure or have let yourself or your family down: not at all 7. Trouble concentrating on things, such as reading the newspaper or watching television: not at all 8. Moving or speaking so slowly that other people could have noticed. Or the opposite - being so fidgety or restless that you have been moving around a lot more than usual: not at all 9. Thoughts that you would be better off or of hurting yourself in some way: not at all Total score: 0 Depression Screening Interpretation: Negative Depression Screening Done: Yes 90786 - PHQ-9 Billing: Yes Source: Developed by Drs. Cortez Schultz, Pat Hernandez, Kush William and colleagues, with an educational ulises from [employer]. Thrive Questionnaire Date Thrive assessed: 02/22/24 I am a: Patient What is your living situation today?: I have a steady place to live Within the past 12 months, did the food you bought not last and you didn't have the money to get more?: Never true Within the past 12 months, did you worry whether your food would run out before you got money to buy more?: Never true Do you have trouble paying for medicines?: No Do you have trouble getting transportation to medical appointments?: No Do you have trouble paying your heating and electricity bill?: No Do you have trouble taking care of your child, family member or friend?: No Do you have trouble with day-to-day activities such as bathing, preparing meals, shopping, managing finances, etc.?: No Are you currently unemployed and looking for a job?: No Are you interested in more education?: No THRIVE Score: 0 AUDIT C Alcohol Use Questionnaire (AUDIT-C) 1. How often do you have a drink containing alcohol?: Monthly or less 2. How many drinks containing alcohol do you have on a typical day when you are drinking?: 1 or 2 3. How often do you have six or more drinks on one occasion?: Never Total Score: 1 SEE-7 AMB Questionnaire SEE-7 Date SEE - 7 assessed: 02/22/24 Feeling nervous, anxious, or on edge: 0 = Not at all Not being able to stop or control worryin = Not at all Worrying too much about different things: 0 = Not at all Trouble relaxin = Not at all Being so restless that it is hard to sit still: 0 = Not at all Becoming easily annoyed or irritable: 0 = Not at all Feeling afraid as if something awful might happen: 0 = Not at all Total SEE-7 score (0-4 normal; 5-9 mild; 10-14 moderate; 15-21 severe): 0 Source: Developed by Drs. Cortez Schultz, Pat Hernandez, Kush William and colleagues, with an educational ulises from [employer]. SEE-7 Assessment Billing SEE-7 Assessment Tool: SEE-7 Assessment 33748 Review of Systems Const All systems reviewed & are unremarkable except as noted in HPI and below Physical exam (Primary Care) Vital Signs: Last Vital Signs Pulse 92 02/22/24 08:55 BP 128/70 02/22/24 08:55 Pulse Ox 98 02/22/24 08:55 Oxygen Delivery Method Room Air 02/22/24 08:55 Care Plan Goal for BP management: Blood pressure controlled BMI result Body Mass Index 28.2 Tobacco/Smoking Status: Tobacco use Status Tobacco use date assessed 02/22/24 02/22/24 09:13 Patient Tobacco Use Status Never used Tobacco 02/22/24 08:55 e-Cigarette/Vaping Use Never Used 02/22/24 08:55 PHQ-9: PHQ-9 Score PHQ-9: Total score 0 02/22/24 09:45 Depression Screening Interpretation: Negative Thrive Assessment: Date of Thrive Assessment Date Thrive assessed 02/22/24 02/22/24 09:13 Advance Care Planning discussion: Exists, not on file Date of discussion: 02/22/24 Forms completed: None Time spent: 1-15 minutes, not on file Const Other: Appearance: Alert.? Oriented X3.? No acute distress.? Head: Normocephalic Eyes: Pupils equal, round and reactive to light.? ENT: Pharynx normal.?TM intact and pearly swan. Neck: Normal inspection.? Neck supple.?Full ROM. CVS: Normal heart rate and rhythm.? Pulses normal.? Respiratory: No respiratory distress.? Breath sounds normal.? Abdomen: Soft and nontender.? Skin: Skin warm and dry.? Normal skin color.? Normal skin turgor.? Extremities: No lower extremity edema.? Back: No midline tenderness, no C-spine tenderness, full range of motion, no CVA tenderness bilaterally Neuro: Oriented X 3.? No motor deficit.? No sensory deficit. CN 2-12 intact, DTR +2. Results Reviewed Results Reviewed: Sodium 139 135-145 mmol/L Potassium 3.9 3.3-5.1 mmol/L CL 105 96-108 mmol/L CO2 27 22-29 mmol/L Gap 11 L 12-20 BUN 15 9-16 mg/dL Creat 0.84 0.5-1.4 mg/dL EGFR > 60 NOTE: For -[place] Islander individuals, multiply the result by 1.210. Chronic Kidney Disease: Estimated GFR < 60 mL/min/1.73m2 Severe Kidney Disease: Estimated GFR < 15 mL/min /1.73m2 FBS 99 60-99 mg/dL CA 9.2 8.4-10.2 mg/dL Total Bili 0.4 0.0-1.0 mg/dL AST (GOT) 12 5-37 U/L ALT (GPT) 14 0-40 U/L Protein, Total 6.8 6.5-8.0 g/dL Alb 3.8 3.5-5.0 g/dL Triglyceride 169 H <150 mg/dL Desirable Triglyceride: less than 150 mg/dL Borderline High Triglyceride 150-199 mg/dL High Triglyceride: 200-499 mg/dL Very High Triglyceride: greater than or equal to 5OO mg/dL Cholesterol 238 H <200 mg/dL Desirable Cholesterol: less than 200 mg/dL Borderline High Cholesterol: 200-239 mg/dL High Cholesterol: greater than 239 mg/dL LDL Calculated 142 H <100 mg/dL Desirable LDL: less than 100 mg/dL Near Optimal/Above Optimal LDL: 110-129 mg/dL Borderline High LDL: 130-159 mg/dL High LDL: 160-189 mg/dL Very High LDL: greater than or equal to 190 mg/dL HDL 63 >40 mg/dL Desirable HDL: greater than 40 mg/dL Note: This HDL assay may give artificially low results in patients with liver disease. Alk Phos 63 39-117 U/L Vit D 25-OH Tot 28.5 L >30 ng/mL Health Based Reference Values* < 20 ng/mL Deficient 20-30 ng/mL Insufficient > 30 ng/mL Sufficient *Brandon MONTAÑO. N Engl J Med. 2007;[id number]:[id number] Care must be taken in interpreting Vitamin D results from different laboratories and methodologies. Published data demonstrated that results from patients undergoing hemodialysis may show a negative bias when tested with various automated 25-OH vitamin D assays when compared to LC-MS/MS. When testing samples from patients whose predominant form of Vitamin D is Vitamin D2, such as patients receiving Vitamin D2 supplementation, results that are subtherapeutic should be confirmed with another method such as LC-MS/MS. Assessment and Plan Assessment & Plan (1) Encounter for physical examination: Comment: Will redraw labs. Patient is a 63-year-old male in today for physical exam Patient's last colonoscopy was in 2015, will be due for next in 2025. Patient declines all immunizations today. Patient given healthcare proxy for to fill out returned office. Patient had a PSA drawn 3 months prior. Code(s): Z00.00 - Encounter for general adult medical examination without abnormal findings (2) BPH loc w urin obs/LUTS: Comment: Patient is establish care with Urology. Currently taking tamsulosin with good effect Code(s): N40.1 - Benign prostatic hyperplasia with lower urinary tract symptoms (3) Generalized anxiety disorder: Comment: Patient was being treated with psychiatrist. Recently lost contact with his provider, he met with in office liaison to establish new psychiatric provider. Utilizes paroxetine and clonazepam good effect Code(s): F41.1 - Generalized anxiety disorder (4) Radiculopathy, lumbar region: Comment: Has established Spine surgeon down in [place]. Also had consult with [facility]-franchise specialist. Patient has meeting later today with franchise specialist to titrate up pregabalin for radicular pain. Code(s): M54.16 - Radiculopathy, lumbar region (5) Hypertension: Comment: Patient controlled blood pressure currently utilize diltiazem 240 mg HCL PO daily. Code(s): I10 - Essential (primary) hypertension Qualifiers: Hypertension type: unspecified Qualified Code(s): I10 - Essential (primary) hypertension Plan: Will order labs. Orders: Orders Complete Blood Count Auto Diff Today Z13.0 - Encounter for screening for diseases of the blood and blood-forming organs and certain disorders involving the immune mechanism Comprehensive Met. Panel Today Z91.89 - Other specified personal risk factors, not elsewhere classified Vitamin D 25-OH (D2 and D3) Today Z13.21 - Encounter for screening for nutritional disorder Lipid Panel Today Z13.220 - Encounter for screening for lipoid disorders Coding Level of Care Code New Pt Prev Care 40-64y(26152) Diagnoses Encounter for physical examination Z00.00 BPH loc w urin obs/LUTS N40.1 Generalized anxiety disorder F41.1 Radiculopathy, lumbar region M54.16 Hypertension, unspecified type I10 Hypertension type: unspecified Additional Codes SEE-7 Assessment Billing - SEE-7 Assessment Tool: SEE-7 Assessment 79043 ([id number]) Vital Signs *Quality* - Advance Care Planning discussion: Exists, not on file ([id number]) Vital Signs *Quality* - Time spent: 1-15 minutes, not on file ([id number]) Time Spent (min) 34
[2024-02-22 08:55] VITALS: BP 128/70; PULSE 92; O2SAT 98; BMI 28.2
== END 2024-02-22 17:00 ==
PROVIDERS: PCP Internal Medicine; Visit Provider Nurse Practitioner Primary Care
DX: Z00.00 Encounter for general adult medical examination without abnormal findings (principal); N40.1 Benign prostatic hyperplasia with lower urinary tract symptoms; F41.1 Generalized anxiety disorder; M54.16 Radiculopathy, lumbar region; I10 Essential (primary) hypertension
CPT/HCPCS: 1124F; 99396

== ENCOUNTER 2024-04-07 10:12 | Outpatient (REF) | payer OTHER, SELFPAY ==
[2024-04-07 10:57] LABS: MANUAL DIFF FLAG NO
[2024-04-07 11:01] LABS: Basophils Percent Auto 0.7 % (0-2); Eosinophils Absolute Auto 0.1 X10*3/uL (0.0-0.4); Eosinophils Percent Auto 2.4 % (0-4); Hematocrit 41.1 % (42.0-52.0); Imm Gran Abs Auto 0.01 X10*3/uL (0.00-0.03); Imm Gran Pct Auto 0.2 % (0.0-0.4); Lymphocytes Absolute Auto 1.2 X10*3/uL (1.2-4.9); Lymphocytes Percent Auto 25.7 % (20-40); Mean Corpuscular HGB Conc 36.5 g/dl (31.0-36.0); Mean Corpuscular Hemoglobin 29.8 pg (27.0-33.0); Mean Corpuscular Volume 81.5 fL (80.0-98.0); Mean Platelet Volume 8.8 fL (9.4-12.4); Monocytes Absolute Auto 0.4 X10*3/uL (0.1-1.2); Monocytes Percent Auto 8.7 % (2-11); Neutrophils Absolute Auto 2.9 x10*3/uL (2.0-8.3); Neutrophils Percent Auto 62.3 % (45-73); Platelet Count 209 X10*3/uL (160-400); Red Blood Count 5.04 X10*6/uL (4.60-5.80); Red Cell Distribution Width 13.1 % (11.0-16.0); White Blood Count 4.6 X10*3/uL (4.8-10.8)
[2024-04-07 11:30] LABS: Alanine Aminotransferase 17 U/L (0-40); Alkaline Phosphatase 62 U/L (39-117); Anion Gap 13 (12-20); Aspartate Amino Transferase 17 U/L (5-37); Bilirubin Total 0.5 mg/dL (0.0-1.0); Blood Urea Nitrogen 14 mg/dL (9-16); Calcium 9.3 mg/dL (8.4-10.2); Carbon Dioxide 26 mmol/L (22-29); Chloride 106 mmol/L (96-108); Cholesterol 232 mg/dL (<200); Estimated Glomerular Filt Rate > 60; Glucose Random 101 mg/dL (60-115); HDL Cholesterol 56 mg/dL (>40); LDL Cholesterol Calculated 141 mg/dL (<100); Potassium 3.7 mmol/L (3.3-5.1); Sodium 141 mmol/L (135-145); Triglycerides 176 mg/dL (<150)
[2024-04-12 12:49] LABS: Vitamin D 25-OH, D2 <4 ng/mL; Vitamin D 25-OH, D3 27 ng/mL; Vitamin D 25-OH, Total 27 ng/mL (30-100)
== END 2024-04-07 10:13 | disposition home or self-care (01) ==
LOC: HO.HMGCLDS 10:12
PROVIDERS: PCP Nurse Practitioner Primary Care; Visit Provider Nurse Practitioner Primary Care
DX: Z91.89 Other specified personal risk factors, not elsewhere classified (principal); Z13.220 Encounter for screening for lipoid disorders; Z13.0 Encounter for screening for diseases of the blood and blood-forming organs and certain disorders involving the immune mechanism; Z13.21 Encounter for screening for nutritional disorder
CPT/HCPCS: 36415; 80053; 80061; 82306; 85025

== ENCOUNTER 2024-04-13 10:59 | Outpatient (AMB) | payer OTHER, SELFPAY ==
--- NOTE | 2024-04-13 11:02 | MHC.PC.OV ---
Vital Signs 04/13/24 11:03 04/13/24 11:27 Height 6 ft 1 in Weight 206 lb BMI 27.2 BP 118/72 116/80 Blood Pressure Location Lt brachial Rt brachial Position Sitting Sitting Pulse 93 Pulse Source Pulse Oximeter Pulse Oximetry (%) 98 Oxygen Delivery Method Room Air Intake Visit Reasons: PE Intake Note: pt is here for follow-up Allergies codeine [CODEINE] Allergy (Unknown, Verified 04/13/24 11:26) FACIAL SWELLING, RASH [id number] Reductase Inhibitor Adverse Reaction (Intermediate, Verified 04/13/24 11:36) Joint Pain Medication List - Last Reconciled 04/13/24 by PERICO Santana diltiazem HCl ER 240 mg PO DAILY ezetimibe (Zetia) 10 mg PO DAILY lisinopril 10 mg PO QAM paroxetine HCl ER 25 mg PO DAILY pregabalin 75 mg PO TID tamsulosin (Flomax) 0.8 mg (2 x 0.4 mg) PO BEDTIME 90 days Tobacco use date assessed: 04/13/24 Dental Screening Dental Screen Date: 02/22/24 HPI HPI Comments History of Present Illness Details This is a 63-year-old male in today for sick visit. over the past several months patient states that he lost contract with his psychiatrist. He was seen them for anxiety and depression. He met with our community mental health navigator 1 month prior, has yet to establish a psychiatrist. will advise patient to follow-up on this. Will give refill of paroxetine at today's visit. Patient also has lumbar surgeon as a care stab wished in [place]. Had been taking Lyrica with good effect. Patient has run out of that medication, has medication prescription bottle with him at the appointment today, will refill. Patient has been instructed to follow up with that physician. Was found to be low in vitamin-D today, will patient start vitamin D3 2000 units per day for the next 3 months and will redraw. Patient also has hypercholesterolemia and hypertriglyceridemia, does not want to take statins due to adverse effect and joint pain. Patient currently utilizing his Entamoeba 10 mg p.o. daily. Patient would like to try to bring his value down with fish oil supplement. Will also utilize exercise and improved diet [facility] Medical History Generalized anxiety disorder Impaired fasting glucose Right knee pain Complex tear of medial meniscus of knee Shoulder pain Mixed dyslipidemia Essential hypertension Spondylosis of cervical spine Cervicalgia Surgical History H/O elbow surgery History of appendectomy H/O cervical spine surgery Hx of colonoscopy Family History Father Myocardial infarction HTN (hypertension) Mental health disorder Substance use disorder Mother Myocardial infarction Multiple sclerosis Brother Substance use disorder Sister Substance use disorder Social History Housing: House Alcohol intake: current Alcohol intake frequency: a few times a month Patient Tobacco Use Status: Never used Tobacco e-Cigarette/Vaping Use: Never Used service: No Current occupational status: employed Cognitive needs: No Hearing needs: No Vision needs: No Questionnaire Thrive Questionnaire Date Thrive assessed: 02/22/24 AUDIT C Alcohol Use Questionnaire (AUDIT-C) 1. How often do you have a drink containing alcohol?: Monthly or less 2. How many drinks containing alcohol do you have on a typical day when you are drinking?: 1 or 2 3. How often do you have six or more drinks on one occasion?: Never Total Score: 1 Score Reviewed/Action Taken: No SEE-7 AMB Questionnaire SEE-7 Date SEE - 7 assessed: 02/22/24 Source: Developed by Drs. Cortez Schultz, Pat Hernandez, Kush William and colleagues, with an educational ulises from [employer]. Review of Systems Const All systems reviewed & are unremarkable except as noted in HPI and below Psych Denies homicidal ideation and Denies suicidal ideation Physical exam (Primary Care) Vital Signs: Last Vital Signs Pulse 93 04/13/24 11:03 BP 148/94 H 04/13/24 11:03 Pulse Ox 98 04/13/24 11:03 Oxygen Delivery Method Room Air 04/13/24 11:03 Care Plan Goal for BP management: Patient had blood pressure recheck in office was normal. BMI result Body Mass Index 27.2 Tobacco/Smoking Status: Tobacco use Status Tobacco use date assessed 04/13/24 04/13/24 11:07 Patient Tobacco Use Status Never used Tobacco 04/13/24 11:07 e-Cigarette/Vaping Use Never Used 04/13/24 11:07 Thrive Assessment: Date of Thrive Assessment Date Thrive assessed 02/22/24 04/13/24 11:07 Const Other: Appearance: Alert.? Oriented X3.? No acute distress.? Head: Normocephalic, atraumatic, no step-offs or deformities CVS: Normal heart rate and rhythm.? Pulses normal.? Respiratory: No respiratory distress.? Breath sounds normal.? Abdomen: Soft and nontender.? Back: No midline tenderness, no C-spine tenderness, Limited range of motion to flexion/extension, no CVA tenderness. +straight leg test bilaterally. Neuro: Oriented X 3.? No motor deficit.? No sensory deficit. CN 2-12 intact Assessment and Plan Assessment & Plan (1) Vitamin D deficiency: Comment: Patient will start 2000 units vitamin D3 daily and redrawn 3 months. Code(s): E55.9 - Vitamin D deficiency, unspecified (2) Radiculopathy, lumbar region: Comment: Has established Spine surgeon down in [place]. Also had consult with C-promotions specialist. Patient has meeting later today with promotions specialist to titrate up pregabalin for radicular pain. Will refill pregabalin. Code(s): M54.16 - Radiculopathy, lumbar region (3) Mixed dyslipidemia: Comment: Patient will try to improve diet and exercise. Will also start to utilize more consumption of healthy fish Code(s): E78.2 - Mixed hyperlipidemia Plan follow up in 6 months. Medications: New paroxetine HCl ER 25 mg PO DAILY 90 tabs 0RF pregabalin 75 mg PO TID 90 caps 0RF Coding Level of Care Code Est Pt Level 3 (14146) Diagnoses Vitamin D deficiency E55.9 Radiculopathy, lumbar region M54.16 Mixed dyslipidemia E78.2 Time Spent (min) 25
[2024-04-13 11:03] VITALS: BP 118/72; PULSE 93; O2SAT 98; BMI 27.2
[2024-04-13 11:27] VITALS: BP 116/80
== END 2024-04-13 11:39 | disposition home or self-care (01) ==
PROVIDERS: PCP Internal Medicine; Visit Provider Nurse Practitioner Primary Care
DX: E55.9 Vitamin D deficiency, unspecified (principal); M54.16 Radiculopathy, lumbar region; E78.2 Mixed hyperlipidemia
CPT/HCPCS: 99213

== ENCOUNTER 2024-09-12 14:55 | Outpatient (AMB) | payer OTHER, SELFPAY ==
--- NOTE | 2024-09-12 15:00 | MHC.OFFVIS ---
Intake Visit Reasons: cysto Intake Note: Patient is present for Cystoscopy Urology Medication:TAMSULOSIN Antibiotic Allergy:NONE Blood Thinner:NONE Lot:[id number] Exp:08/06/27 Electrical And Instrument Technician Required: No Allergies codeine [CODEINE] Allergy (Unknown, Verified 09/12/24 15:01) FACIAL SWELLING, RASH Quylqsv-FYZ-NvF Reductase Inhibitor Adverse Reaction (Intermediate, Verified 09/12/24 15:01) Joint Pain HPI Comments Details: Negra is a pleasant male. He is a patient of Dr. Cesar. He is seen for the following urologic conditions - lower urinary tract symptoms Here for cystoscopy Tight bladder neck Recommend plasma button Lower urinary tract symptoms Has been on Flomax Previously trialed terazosin and alfuzosin with some degree of dizziness, retrograde ejaculation and congestion Bladder ultrasound - 41 cc prostate PSA 10/26 2.1 PFSH Medical History Generalized anxiety disorder Impaired fasting glucose Right knee pain Complex tear of medial meniscus of knee Shoulder pain Mixed dyslipidemia Essential hypertension Spondylosis of cervical spine Cervicalgia Surgical History H/O elbow surgery History of appendectomy H/O cervical spine surgery Hx of colonoscopy Family History Father Myocardial infarction HTN (hypertension) Mental health disorder Substance use disorder Mother Myocardial infarction Multiple sclerosis Brother Substance use disorder Sister Substance use disorder Social History Housing: House Alcohol intake: current Alcohol intake frequency: a few times a month Patient Tobacco Use Status: Never used Tobacco e-Cigarette/Vaping Use: Never Used service: No Current occupational status: employed Cognitive needs: No Hearing needs: No Vision needs: No Review of Systems Const Denies chills and Denies fever(s) Card Reports no additional complaints and Denies syncope Resp Denies cough GI Denies abdominal pain and Denies heartburn Reports as per HPI and Denies change in libido Neuro Denies syncope Psych Denies change in libido Endo Denies change in libido Physical Exam Const General: cooperative, healthy appearing, comfortable and no acute distress Orientation/consciousness: patient oriented x3 HEENT Face and sinus: Yes normal facial exam Mouth: moist mucous membranes Neck Neck: Yes normal visual inspection, Yes full ROM and Yes trachea midline Chest Chest palpation & inspection: normal inspection of the chest Resp Effort & Inspection: normal respiratory effort, able to speak in complete sentences and no respiratory distress GI Inspection: Yes normal to inspection Back/Spine/Pelvis Cervical Spine: normal cervical lordosis Thoracic/Lumbar Spine: thoracic and lumbar spine normal to inspection Skin General skin exam: no rashes or lesions noted Neuro General: patient oriented x3, gait normal, tone normal and moves all extremities Extrem General: Yes normal to inspection and Yes capillary refill normal Office Procedures Cystoscopy Consent Discussed risk and benefit or proposed procedure with the patient. Information consent for procedure given to the patient. Discussed technical aspects, risks, benefits and alternatives in full. Addressed all of the patient's questions and concerns regarding the procedure. The patient demonstrated knowledge and understanding. They wish to proceed with this procedure. Preparation The patient was prepped in the usual manner. A molecular biologist was present and in the room. Genitalia was prepped with betadine solution in a sterile manner. Lidocaine Jelly 2% was placed into the urethra and 16Fr flexible Olympus cystoscope was inserted into the meatus after adequate lubrication. Procedure Cystoscopy performed using a disposable Urovue digital 16 Polish cystoscope. Meatus circumcised Urethra anterior and posterior urethra normal Prostatic Urethra tight prostate neck Bladder examination with retroflexion of cystoscope Bladder Orifices normal shape and position Bladder Capacity normal Trabeculations grade 1 Cellule Formation - Diverticulum Formation - Mucosal Erythema - Bladder Tumor - [id number] DISPOSABLE SCOPE URO-G FLEXIBLE SCOPE Procedure code (CPT) selection complete Office Meds lidocaine HCl 2 % mucosal jelly in applicator Performing Provider: Andriy Chaparro MD Performing Location: [facility] [place] [facility] Administered by: Andriy Chaaprro MD on 09/12/24 15:53 Dose Route Admin Location Dispensed Lot Number Expiration Date [facility] Skid Wrapper 10 mL intra-urethral 10 mL Results AMB Urinalysis, Automated UA Leukoctes 0 Sarina/uL Last Edit by JESS Moreno on 09/12/24 15:21 UA Nitrite Negative Last Edit by JESS Moreno on 09/12/24 15:21 UA Urobilinogen 0.2 mg/dL Last Edit by JESS Moreno on 09/12/24 15:21 UA Protein 30 mg/dL Last Edit by JESS Moreno on 09/12/24 15:21 UA pH 5.5 Last Edit by JESS Moreno on 09/12/24 15:21 UA Blood 0 John/uL Last Edit by JESS Moreno on 09/12/24 15:21 UA Specific [place] 1.030 Last Edit by JESS Moreno on 09/12/24 15:21 UA Ketone Positive Last Edit by JESS Moreno on 09/12/24 15:21 UA Bilirubin 1 mg/dL Last Edit by JESS Moreno on 09/12/24 15:21 UA Glucose 0 mg/dL Last Edit by JESS Moreno on 09/12/24 15:21 Results Reviewed Results Reviewed: Laboratory Last Values Urine pH (Auto) 5.5 09/12/24 15:21 Specific [place] (Auto) 1.030 09/12/24 15:21 Urine Protein (Auto) 30 mg/dL 09/12/24 15:21 Glucose (UA)(Auto) 0 mg/dL 09/12/24 15:21 Urine Ketones (Auto) Positive 09/12/24 15:21 Urine Blood (Auto) 0 John/uL 09/12/24 15:21 Urine Nitrite (Auto) Negative 09/12/24 15:21 Urine Bilirubin (Auto) 1 mg/dL 09/12/24 15:21 Urine Urobilinogen (Auto) 0.2 mg/dL 09/12/24 15:21 Leukocyte Esterase (Auto) 0 Sarina/uL 09/12/24 15:21 Assessment & Plan Assessment & Plan (1) BPH loc w urin obs/LUTS: Comment: Patient is establish care with Urology. Currently taking tamsulosin with good effect Code(s): N40.1 - Benign prostatic hyperplasia with lower urinary tract symptoms Category: Medical Plan We discussed the nature of the decision and reasonable options for performing a prostate intervention. Interventions include TURP, GreenLight laser enucleation of the prostate, GreenLight laser ablation of the prostate, transurethral incision of the prostate, and I-Tend prostate procedure. Options such as medical therapy were discussed. The relative uncertainties and benefits related to each alternate procedure were adequately discussed. General surgical risks including, but not limited to, pain, bleeding, infection, myocardial infarction, pulmonary embolus, deep vein thrombosis and cerebrovascular accident which may result in further hospitalization were discussed. Full disclosure of the procedure as well as all major risks, benefits and complications were discussed including but not limited to damage to the urethra or bladder neck, recurrent BPH, retrograde ejaculation, bladder infection, urge, de harry frequency, incomplete emptying, dysuria, remote chance of erectile dysfunction, epididymitis, and meatal stenosis. The success rate of the procedure was discussed. Success of the procedure in the short-term does not necessarily guarantee that long-term success will be maintained. Suitable follow up will need to be maintained. The patient showed understanding of discussion. An opportunity was provided for questions to be answered and wishes to proceed with the following procedure. - plasma button Orders: Orders AMB Urinalysis Automated Today Z13.9 - Encounter for screening, unspecified AMB Cystoscopy Today N40.1 - Benign prostatic hyperplasia with lower urinary tract symptoms Medications: New lidocaine HCl 2% 10 mL intra-urethral ONCE 10 mL 0RF N40.1 - Benign prostatic hyperplasia with lower urinary tract symptoms Patient Instructions: Imaging studies, laboratory and physical exam results were discussed and reviewed in detail. No major barriers to patient understanding were identified. An opportunity to ask questions regarding the treatment plan was provided. All questions were answered. The patient expressed understanding and agreement with the above treatment plan. The patient is aware they should contact our office by phone for worsening of their current condition or the appearance of new urologic symptoms. Compliance is encouraged with any medications and followup testing that is ordered. It is a privilege to participate in the urologic care of your patient. If you have any questions or concerns regarding treatment for the above conditions, or other urologic issues, please do not hesitate to contact me. The office telephone contact is [phone]. This note is constructed using voice recognition software. While every effort has been made to ensure accuracy physicians and surgeons errors may have been included. Yours sincerely, Dr Andriy Chaparro MD, [facility] - Urology Providers of Expert, Compassionate Care for the Genitourinary System Coding Level of Care Code Est Pt Level 4 (42563) Diagnoses BPH loc w urin obs/LUTS N40.1 CPT Codes Cystoscopy - CPT: 65775-Ibaoxyunib ([id number])
== END 2024-09-12 15:59 | disposition home or self-care (01) ==
PROVIDERS: PCP Nurse Practitioner Primary Care; Visit Provider Urology
DX: N40.1 Benign prostatic hyperplasia with lower urinary tract symptoms (principal); N13.8 Other obstructive and reflux uropathy; Z13.9 Encounter for screening, unspecified
CPT/HCPCS: 52000; 99214

== ENCOUNTER → 2024-09-12 14:55 | Outpatient (BNVA) | payer OTHER, SELFPAY | PROVIDERS: PCP Nurse Practitioner Primary Care; Visit Provider Urology | DX: N40.1 Benign prostatic hyperplasia with lower urinary tract symptoms (principal); N13.8 Other obstructive and reflux uropathy | CPT/HCPCS: 52000; 81003 ==

== ENCOUNTER 2024-09-28 11:35 | Outpatient (REF) | payer OTHER, SELFPAY ==
[2024-09-28 13:54] LABS: Alanine Aminotransferase 18 U/L (0-40); Anion Gap 10 (12-20); Aspartate Amino Transferase 16 U/L (5-37); Blood Urea Nitrogen 18 mg/dL (9-16); Carbon Dioxide 27 mmol/L (22-29); Chloride 106 mmol/L (96-108); Cholesterol 238 mg/dL (<200); Estimated Glomerular Filt Rate > 60; Glucose Fasting 96 mg/dL (60-99); HDL Cholesterol 69 mg/dL (>40); LDL Cholesterol Calculated 136 mg/dL (<100); Potassium 3.9 mmol/L (3.3-5.1); Sodium 139 mmol/L (135-145); Triglycerides 167 mg/dL (<150); Vitamin D 25-OH Total 49.6 ng/mL (>30)
== END 2024-09-28 11:36 | disposition home or self-care (01) ==
LOC: HO.HMGCLDS 11:35
PROVIDERS: PCP Internal Medicine; Visit Provider Internal Medicine
DX: E55.9 Vitamin D deficiency, unspecified (principal); I10 Essential (primary) hypertension; E78.2 Mixed hyperlipidemia
CPT/HCPCS: 36415; 80048; 80061; 82306; 84450; 84460

== ENCOUNTER 2024-10-01 12:06 | Outpatient (AMB) | payer OTHER, SELFPAY ==
--- NOTE | 2024-10-01 12:14 | A.OFFPC_ITS ---
Vital Signs 10/01/24 12:15 Height 6 ft 1 in Weight 208 lb BMI 27.4 BP 130/80 Blood Pressure Location Lt brachial Position Sitting Pulse 84 Pulse Source Pulse Oximeter Pulse Oximetry (%) 98 Oxygen Delivery Method Room Air Intake Visit Reasons: Transfer from [facility] [place] Intake Note: Pt is here today as a transferform [facility] [place] Allergies codeine [CODEINE] Allergy (Unknown, Verified 10/01/24 12:21) FACIAL SWELLING, RASH [id number]-[id number] Reductase Inhibitor Adverse Reaction (Intermediate, Verified 10/01/24 12:21) Joint Pain Medication List - Last Reconciled 10/01/24 by Deja Cesar MD diltiazem HCl ER 240 mg PO DAILY ezetimibe (Zetia) 10 mg PO DAILY lisinopril 10 mg PO QAM meloxicam 15 mg PO DAILY paroxetine HCl ER 25 mg PO DAILY pregabalin 75 mg PO BID PRN tamsulosin (Flomax) 0.8 mg (2 x 0.4 mg) PO BEDTIME 90 days Tobacco use date assessed: 10/01/24 Dental Screening Dental Screen Date: 10/01/24 Did you have a dental visit in the last 12 months?: Yes Did you have a dental problem in the last 6 months where you did not have access to dental care?: Yes Was dental information given to patient?: Patient has dentist HPI Transfer from [facility] HPI Details 63-year-old male with past medical histo ry for hypertension, impaired fasting glucose, lumbar disc degeneration with radiculopathy, mixed dyslipidemia, and benign prostatic hyperplasia, here today for follow-up. He has been feeling well, has no complaints at present time. He currently is being followed by Dr. Chaparro for his BPH. Blood pressure stable and controlled on present medication with diltiazem ER 240 mg daily together with lisinopril 10 mg daily in a.m.. He takes ezetimibe 10 mg once daily for control of his lipids , and takes meloxicam as needed and pregabalin for chronic low back pain secondary to degenerative disc disease with neuropathy. He had recent fasting labs done which showed electrolytes, renal function, vitamin-D, liver enzymes and fasting glucose within normal limits. His total cholesterol and LDL cholesterol is higher than last check , but triglyceride levels has improved. [facility] Medical History Generalized anxiety disorder Impaired fasting glucose Right knee pain Complex tear of medial meniscus of knee Mixed dyslipidemia Essential hypertension Spondylosis of cervical spine Cervicalgia Surgical History H/O elbow surgery History of appendectomy H/O cervical spine surgery Hx of colonoscopy Family History Father Myocardial infarction HTN (hypertension) Mental health disorder Substance use disorder Mother Myocardial infarction Multiple sclerosis Brother Substance use disorder Sister Substance use disorder Social History Housing: House Alcohol intake: current Alcohol intake frequency: a few times a month Patient Tobacco Use Status: Never used Tobacco e-Cigarette/Vaping Use: Never Used service: No Current occupational status: employed Cognitive needs: No Hearing needs: No Vision needs: No Questionnaire PHQ-9 Over the last 2 weeks, how often have you been bothered by any of the following problems? 1. Little interest or pleasure in doing things: not at all 2. Feeling down, depressed, or hopeless: not at all 3. Trouble falling or staying asleep, or sleeping too much: not at all 4. Feeling tired or having little energy: several days 5. Poor appetite or overeating: not at all 6. Feeling bad about yourself - or that you are a failure or have let yourself or your family down: not at all 7. Trouble concentrating on things, such as reading the newspaper or watching television: not at all 8. Moving or speaking so slowly that other people could have noticed. Or the opposite - being so fidgety or restless that you have been moving around a lot more than usual: not at all 9. Thoughts that you would be better off or of hurting yourself in some way: not at all Total score: 1 Source: Developed by Drs. Cortez Schultz, Pat Hernandez, Kush William and colleagues, with an educational ulises from [employer]. Thrive Questionnaire Date Thrive assessed: 02/22/24 I am a: Patient What is your living situation today?: I have a steady place to live Within the past 12 months, did the food you bought not last and you didn't have the money to get more?: Never true Within the past 12 months, did you worry whether your food would run out before you got money to buy more?: Never true Do you have trouble paying for medicines?: No Do you have trouble getting transportation to medical appointments?: No Do you have trouble paying your heating and electricity bill?: No Do you have trouble taking care of your child, family member or friend?: No Do you have trouble with day-to-day activities such as bathing, preparing meals, shopping, managing finances, etc.?: No Are you currently unemployed and looking for a job?: No Are you interested in more education?: No Please select the resources that you would like help with: None Currently or been in a relationship where the following occur: I choose not to answer THRIVE Score: 0 AUDIT C Alcohol Use Questionnaire (AUDIT-C) 1. How often do you have a drink containing alcohol?: 2-4 times a month 2. How many drinks containing alcohol do you have on a typical day when you are drinking?: 1 or 2 3. How often do you have six or more drinks on one occasion?: Never Total Score: 2 SEE-7 AMB Questionnaire SEE-7 Date SEE - 7 assessed: 02/22/24 Feeling nervous, anxious, or on edge: 0 = Not at all Not being able to stop or control worryin = Not at all Worrying too much about different things: 0 = Not at all Trouble relaxin = Not at all Being so restless that it is hard to sit still: 0 = Not at all Becoming easily annoyed or irritable: 0 = Not at all Feeling afraid as if something awful might happen: 0 = Not at all Total SEE-7 score (0-4 normal; 5-9 mild; 10-14 moderate; 15-21 severe): 0 Source: Developed by Drs. Cortez Schultz, Pat Hernandez, Kush William and colleagues, with an educational ulises from [employer]. Review of Systems Const Denies fatigue, Denies fever(s), Denies lethargy, Denies malaise, Denies poor appetite and Denies weakness Eyes Denies change in vision ENT Reports no additional complaints Card Denies chest pain, Denies lightheadedness and Denies dyspnea Resp Denies chest congestion, Denies cough and Denies dyspnea GI Reports no additional complaints Reports as per HPI Musc Reports as per HPI Neuro Reports no additional complaints and Denies weakness Psych Reports as per HPI Endo Reports no additional complaints and Denies fatigue Florian/Lymph Reports no additional complaints Aller/Immun Reports no additional complaints Physical exam (Primary Care) Vital Signs: Last Vital Signs Pulse 84 10/01/24 12:15 BP 130/80 10/01/24 12:15 Pulse Ox 98 10/01/24 12:15 Oxygen Delivery Method Room Air 10/01/24 12:15 BMI result Body Mass Index 27.4 Tobacco/Smoking Status: Tobacco use Status Tobacco use date assessed 10/01/24 10/01/24 12:19 Patient Tobacco Use Status Never used Tobacco 10/01/24 12:19 e-Cigarette/Vaping Use Never Used 10/01/24 12:19 PHQ-9: PHQ-9 Score PHQ-9: Total score 1 10/01/24 12:22 Thrive Assessment: Date of Thrive Assessment Date Thrive assessed 02/22/24 10/01/24 12:19 Currently or been in a relationship where the following occur: I choose not to answer Const General: no acute distress and alert Orientation/consciousness: patient oriented x3 Limitations: no limitations HENMT Ears: external ears normal, TM's normal bilaterally and EAC's normal General nose exam: Normal external nose present Mouth: Normal oral and palatal mucosa present, oropharynx normal and moist mucous membranes Eyes General: appearance normal, both eyes and all related structures Sclerae: sclerae normal Pupils: Equal, round and reactive pupils present EOM: EOMs intact bilaterally Neck Neck: Yes full ROM, Yes no lymphadenopathy and Yes supple Resp Effort & Inspection: normal respiratory effort and able to speak in complete sentences Auscultation: clear to auscultation bilaterally Cardio Rate: regular rate Rhythm: regular rhythm Heart sounds: S1 normal heart sound present and S2 normal heart sound present GI Palpation (GI): Soft to palpation, nontender and no masses Auscultation: normal bowel sounds Back/Spine/Pelvis Back: No back tenderness Skin General skin exam: no rashes or lesions noted Neuro General: patient oriented x3, gait normal, tone normal, moves all extremities, Normal light touch and pain sensation and no focal motor deficits Cranial nerves: Yes CN's II-XII intact bilaterally and Yes Equal, round and reactive pupils present Cognition (Neuro): normal cognition Extrem General: Yes full ROM, Yes no joint enlargement, Yes no clubbing, cyanosis or edema and Yes no calf tenderness Psych Appearance: grossly normal and well kempt Mental Status: mental status grossly normal Speech and movement: Normal speech and movement present Affect: normal affect Attitude: cooperative Thought process: Normal thought process present Thought content: Normal thought content present Results Reviewed Results Reviewed: Name: Vijay Scales Age/Sex: 63/M : 1960 Unit#: [id number] Attend Dr: Deja Cesar MD Re09/28/24 Status: DEP REF Location: [facility] Disch: SPEC : [id number] JERRICA: 09/28/24 STATUS: COMP REQ : [id number] RECD: 09/28/[address]: Deja Cesar MD COMP: 09/28/24 ENTERED: 09/28/[address]: ORDERED: Met Prof Fast, AST, ALT, Lipid Panel, Vitamin D 25-OH Test Result Flag Reference Sodium 139 135-145 mmol/L Potassium 3.9 3.3-5.1 mmol/L CL 106 96-108 mmol/L CO2 27 22-29 mmol/L Gap 10 L 12-20 BUN 18 H 9-16 mg/dL Creat 0.87 0.5-1.4 mg/dL eGFR > 60 Chronic Kidney Disease: Estimated GFR < 60 mL/min/1.73m2 Severe Kidney Disease: Estimated GFR < 15 mL/min/1.73m2 FBS 96 60-99 mg/dL CA 9.0 8.4-10.2 mg/dL AST (GOT) 16 5-37 U/L ALT (GPT) 18 0-40 U/L Triglyceride 167 H <150 mg/dL Desirable Triglyceride: less than 150 mg/dL Borderline High Triglyceride 150-199 mg/dL High Triglyceride: 200-499 mg/dL Very High Triglyceride: greater than or equal to 5OO mg/dL Cholesterol 238 H <200 mg/dL Desirable Cholesterol: less than 200 mg/dL Borderline High Cholesterol: 200-239 mg/dL High Cholesterol: greater than 239 mg/dL LDL Calculated 136 H <100 mg/dL Desirable LDL: less than 100 mg/dL Near Optimal/Above Optimal LDL: 110-129 mg/dL Borderline High LDL: 130-159 mg/dL High LDL: 160-189 mg/dL Very High LDL: greater than or equal to 190 mg/dL HDL 69 >40 mg/dL Desirable HDL: greater than 40 mg/dL Note: This HDL assay may give artificially low results in patients with liver disease. Vit D 25-OH Tot 49.6 >30 ng/mL Health Based Reference Values* < 20 ng/mL Deficient 20-30 ng/mL Insufficient > 30 ng/mL Sufficient Coding Level of Care Code Est Pt Level 4 (10621) Complex EM visit Add On G2211 Diagnoses Essential hypertension I10 Mixed dyslipidemia E78.2 Impaired fasting glucose R73.01 Assessment & Plan Assessment & Plan (1) Essential hypertension: Code(s): I10 - Essential (primary) hypertension Category: Medical Plan: Blood pressure at goal of less than 130/80. Continue with current medication. Reinforced importance of following a low sodium diet, getting regular exercise, and lowering stress levels. (2) Mixed dyslipidemia: Comment: Patient will try to improve diet and exercise. Will also start to utilize more consumption of healthy fish Code(s): E78.2 - Mixed hyperlipidemia Category: Medical Plan: Reviewed recent fasting lipids results with patient which showed LDL cholesterol total cholesterol higher than last check. Re-emphasized importance of following recommended diet and getting regular exercise. Continue with ezetimibe 10 mg daily, (3) Impaired fasting glucose: Code(s): R73.01 - Impaired fasting glucose Category: Medical Plan: Your previous fasting blood sugars were elevated above 100 mg/dL. Impaired glucose metabolism increases the risk for developing diabetes mellitus type 2, as well as heart attack and stroke later on. Lifestyle changes that promotes weight loss, healthy eating habits, and regular exercise are important, and can prevent the progression to diabetes Orders: Orders Basic Metabolic Panel Fasting 04/02/25 Deja Cesar MD E55.9 - Vitamin D deficiency, unspecified, E78.2 - Mixed hyperlipidemia, I10 - Essential (primary) hypertension, R73.01 - Impaired fasting glucose Complete Blood Count Auto Diff 04/02/25 Deja Cesar MD E55.9 - Vitamin D deficiency, unspecified, E78.2 - Mixed hyperlipidemia, I10 - Essential (primary) hypertension, R73.01 - Impaired fasting glucose Lipid Panel 04/02/25 Deja Cesar MD E55.9 - Vitamin D deficiency, unspecified, E78.2 - Mixed hyperlipidemia, I10 - Essential (primary) hypertension, R73.01 - Impaired fasting glucose Vitamin D 25-OH Total 04/02/25 Deja Cesar MD E55.9 - Vitamin D deficiency, unspecified, E78.2 - Mixed hyperlipidemia, I10 - Essential (primary) hypertension, R73.01 - Impaired fasting glucose Aspartate Amino Transferase 04/02/25 Deja Cesar MD E55.9 - Vitamin D deficiency, unspecified, E78.2 - Mixed hyperlipidemia, I10 - Essential (primary) hypertension, R73.01 - Impaired fasting glucose Alanine Aminotransferase 04/02/25 Deja Cesar MD E55.9 - Vitamin D deficiency, unspecified, E78.2 - Mixed hyperlipidemia, I10 - Essential (primary) hypertension, R73.01 - Impaired fasting glucose Medications: Changed From pregabalin 75 mg PO TID 90 caps 0RF To pregabalin 75 mg PO BID PERICO Rice
[2024-10-01 12:15] VITALS: BP 130/80; PULSE 84; O2SAT 98; BMI 27.4
== END 2024-10-01 12:50 | disposition home or self-care (01) ==
PROVIDERS: PCP Nurse Practitioner Primary Care; Visit Provider Internal Medicine
DX: I10 Essential (primary) hypertension (principal); E78.2 Mixed hyperlipidemia; R73.01 Impaired fasting glucose

== ENCOUNTER 2025-03-07 11:05 | Outpatient (AMB) | payer OTHER, SELFPAY ==
[2025-03-07 11:25] VITALS: BP 148/96; PULSE 106; TEMP 36.7; O2SAT 98; BMI 26.7
--- NOTE | 2025-03-07 11:25 | AM.OFFWIN_ITS ---
Intake Vital Signs 3 03/07/25 11:25 Height 6 ft 1 in Weight 202 lb 4 oz BMI 26.7 BP 148/96 H Blood Pressure Location Lt brachial Position Sitting Pulse 106 H Pulse Source Pulse Oximeter Temp 98.1 F Temp Source Oral Pulse Oximetry (%) 98 Oxygen Delivery Method Room Air Intake Visit Reasons: EP Back pain, nerve pain down lt leg Intake Note: Pt presents to the office today for c/o back pain,nerve pain down left leg x6 months but states this week has been the worst. Patient Tobacco Use Status: Never used Tobacco Allergies codeine [CODEINE] Allergy (Unknown, Verified 03/07/25 11:25) FACIAL SWELLING, RASH Tfxqpzr-EYY-LdN Reductase Inhibitor Adverse Reaction (Intermediate, Verified 03/07/25 11:25) Joint Pain Medication List - Last Reconciled 03/07/25 by Merle Pulliam NP diltiazem HCl ER 240 mg PO DAILY ezetimibe (Zetia) 10 mg PO DAILY lisinopril 10 mg PO QAM meloxicam 15 mg PO DAILY paroxetine HCl ER 25 mg PO DAILY tamsulosin (Flomax) 0.8 mg (2 x 0.4 mg) PO BEDTIME 90 days HPI HPI Comments 2 History of Present Illness0 Details 64 y/o Male patient who presents to the walk in clinic with c/o chronic Lower Back pain associated with nerve pain radiating down left leg. Pt reports for the past 6 months pain has been getting worse. Prior h/o Multiple back surgeries due to Disc Degeneration Lumbar disease and Herniated Nucleus Pulposus L3-4 (his surgeon is in [place]). He has a history of a L2-3 teresa-laminectomy, and bilateral laminectomies from L3-S1. He also has a history of a failed left-sided ulnar nerve decompression where he had the unfortunate experience of having his ulnar nerve severed during the surgery. He states that his laminectomy procedures were completed by Dr. Jeb Antunez in [place], [place]. Back in 2023 he did see [facility]- Spine (Dr. Crocker) - He had L3-4 Transkambin lumbar fusion to address the severely degenerated disc and decompress the L4 nerve root on 02/14/2024. Pt reports having temporally relief after surgery but pain returned and worse. [facility] Medical History Generalized anxiety disorder Impaired fasting glucose Right knee pain Complex tear of medial meniscus of knee Mixed dyslipidemia Essential hypertension Spondylosis of cervical spine Cervicalgia Surgical History H/O elbow surgery History of appendectomy H/O cervical spine surgery Hx of colonoscopy Family History Father Myocardial infarction HTN (hypertension) Mental health disorder Substance use disorder Mother Myocardial infarction Multiple sclerosis Brother Substance use disorder Sister Substance use disorder Social History Housing: House Alcohol intake: current Alcohol intake frequency: a few times a month Patient Tobacco Use Status: Never used Tobacco e-Cigarette/Vaping Use: Never Used service: No Current occupational status: employed Cognitive needs: No Hearing needs: No Vision needs: No Review of Systems Const All systems reviewed & are unremarkable except as noted in HPI and below Physical Exam Vital Signs: Last Vital Signs Temp 98.1 F 03/07/25 11:25 Pulse 106 H 03/07/25 11:25 BP 148/96 H 03/07/25 11:25 Pulse Ox 98 03/07/25 11:25 Oxygen Delivery Method Room Air 03/07/25 11:25 BMI result Body Mass Index 26.7 Const General: no acute distress Nutritional Appearance: overweight Orientation/consciousness: patient oriented x3 Back/Spine/Pelvis Back: back tenderness Thoracic/Lumbar Spine: pain with thoraco-lumbar ROM, thoraco-lumbar spasm and lumbar spinal tenderness Back/spine/pelvis image: 2 1. Multiple Old Surgical Scars present Neuro General: patient oriented x3, gait normal and moves all extremities Psych Speech and movement: Normal speech and movement present Assessment & Plan Assessment & Plan (1) Herniated nucleus pulposus, L3-4: Comment: With impingement on right L3 nerve root as noted on MRI of lumbar spine done May 2022 Code(s): M51.26 - Other intervertebral disc displacement, lumbar region Plan: Placed referrals to Pain management and Neuro-Spine. (2) Radiculopathy, lumbar region: Comment: Has established Spine surgeon down in [place]. Also had consult with C-clinical documentation improvement specialist 2023. Code(s): M54.16 - Radiculopathy, lumbar region Plan: Placed referrals to Pain management and Neuro-Spine. Coding Level of Care Code Est Pt Level 4 (07691) Diagnoses Herniated nucleus pulposus, L3-4 M51.26 Radiculopathy, lumbar region M54.16 Time Spent (min) 20
--- OUTSIDE RECORDS SUMMARY | 2025-03-07 13:10 | XMS_ITS | Patient Health Record ---
[facility] Address [address] [place] [address] Care Team Providers Care Padded Box Sewer Name Role Phone Arsenio MATTHEWS, Deja Cabrera Primary Care Provider Un available Lau Heriberto Unavailable [phone] Allergies Allergen (clinical drug ingredient) Drug/Non Drug Allergy documented on EMR Reaction Allergy Type Onset Date Status codeine Codeine rash Drug Allergy Active Reason For Referral No Information Medications Medication SIG (Take, Route, Frequency, Duration) Notes Start Date End Date Status Lisinopril 10 MG 1 tablet Orally Once a day for 30 day(s) Active PARoxetine HCl 25 1 tablet in the morn ing Orally Once a day Active Zetia 10 MG 1 tablet Orally Once a day for 30 day(s) Active dilTIAZem HCl ER Beads 240 MG 1 capsule Orally Once a day for 30 day(s) Active Fish Oil 1000 MG Orally Twice a day Active Social History Tobacco Use: Social History Observation Description Date Details (start date - stop date) Never Smoker NA - NA Tobacco Use/Smoking Question Answer Notes Are you a: nonsmoker Additional Findings: Tobacco Non-User Current no n-smoker Alcohol Screen Question Answer Notes Did you have a drink containing alcohol in the p ast year? Yes Points 0 Interpretation Negative Tobacco use other than smoking: Question Answer Notes Are you an other tobacco user? No Plan Of Treatment Pending Test Test Name Order Date X ray : Foot, left 3V 08/01/2020 X ray : Foot, right 3V 08/01/2020 26805, [id number]/INJECT, JOINT/BURSA 1 10/12/2019 Insurance Providers Payer Name Payer Address Payer Phone Subscriber Number Group Number Insured Name Patient Relationship to Insured Coverage Start Date Coverage End Date [facility] [id number] [address] [address] [place] [address] [id number] Vijay Kirk i Self - patient is the insured Medical (General) History Medical History History ICD Code Anxiety High blood pressure Surgical History Surgery Date(Month/Year) neck surgery back surgery appendectomy 81 elbow sx, bilateral
== END 2025-03-07 12:10 | disposition home or self-care (01) ==
PROVIDERS: PCP Nurse Practitioner Primary Care; Visit Provider Nurse Practitioner Family
DX: M51.26 Other intervertebral disc displacement, lumbar region (principal); M54.16 Radiculopathy, lumbar region

== ENCOUNTER → 2025-03-07 11:05 | Outpatient (BNVA) | payer OTHER, SELFPAY | PROVIDERS: PCP Nurse Practitioner Primary Care; Visit Provider Nurse Practitioner Family ==

== ENCOUNTER 2025-03-28 15:22 | Outpatient (AMB) | payer OTHER, SELFPAY ==
[2025-03-28 15:28] VITALS: BP 158/96; PULSE 85; RESP 18; O2SAT 98
--- NOTE | 2025-03-28 15:28 | MHC.OFFVIS ---
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 He was all this time in [place] where he received laminotomy foraminotomy and partial resection of the facet joint material in the treatment of central canal and foraminal stenosis. He reported that the surgery helped his pain for some time however now he complains on pain in the lower back with pain radiation down the left lower extremity all the way to his ankle but not below that level. He denies radiation of the pain into the foot or toes. Physical exam see as below. In the past this patient was under my care with cervicalgia facet degeneration in the cervical spine, he received radiofrequency ablation medial branches for the cervical joints bilateral C4-C5 C6. He still 3 years later does not report any cervicalgia or cervical pain. There is an MRI available in his chart from [place] which demonstrates significant L3-L4 and L4-5 laminotomy bilateral and foraminotomy bilateral. It is still reports L3 nerve root compression on the left with significant disc degeneration and disc protrusion this level as well as postsurgical changes. There is Modic type changes at L3, L4, L5 vertebras. He reports sometimes difficulty with prolonged sitting. Prior: In 2021 he complained on new pain in the right anterior thigh knee and anterior sheen with insects crawling sensation in that area and pain reaching level of the top of the foot. We treated him for cervicalgia secondary to disc degeneration cervical spine about 1 year ago. We performed multiple injections and eventually referred him to a neuro surgery. He had successful 2 level fusion in his cervical spine and now he reports that his neck is not bothering him at all. He reported a new pain which that started few months ago after he visited chiropractor. Chiropractor performed some sort of a compression maneuver on his spine and since then he suffers from this pain described above. He tried NSAIDs to treat his pain. His primary care doctor prescribe him opioids and gabapentin to treat his pain. He reports that with opioids he cannot go to work he is still working for the [employer]. He reports that he is taking gabapentin however gabapentin does not help him H [facility] Medical History Generalized anxiety disorder Impaired fasting glucose Right knee pain Complex tear of medial meniscus of knee Mixed dyslipidemia Essential hypertension Spondylosis of cervical spine Cervicalgia Surgical History H/O elbow surgery History of appendectomy H/O cervical spine surgery Hx of colonoscopy Family History Father Myocardial infarction HTN (hypertension) Mental health disorder Substance use disorder Mother Myocardial infarction Multiple sclerosis Brother Substance use disorder Sister Substance use disorder Social History Housing: House Alcohol intake: current Alcohol intake frequency: a few times a month Patient Tobacco Use Status: Never used Tobacco e-Cigarette/Vaping Use: Never Used service: No Current occupational status: employed Cognitive needs: No Hearing needs: No Vision needs: No Review of Systems Const All systems reviewed & are unremarkable except as noted in HPI and below ENT Reports Normal hearing present Neuro Reports Normal hearing present, Denies Abnormal speech present, Denies confusion and Denies Sensory deficit (Neuro) Psych Denies confusion Physical Exam Vital Signs: Last Vital Signs Pulse 85 03/28/25 15:28 Resp 18 03/28/25 15:28 BP 158/96 H 03/28/25 15:28 Pulse Ox 98 03/28/25 15:28 Oxygen Delivery Method Room Air 03/28/25 15:28 Const General: no acute distress; No confusion Orientation/consciousness: patient oriented x3 and No confusion Eyes General: appearance normal, both eyes and all related structures Pupils: Equal, round and reactive pupils present EOM: EOMs intact bilaterally Neck Neck: Yes full ROM Chest Chest palpation & inspection: normal inspection of the chest Resp Effort & Inspection: normal respiratory effort, able to speak in complete sentences, normal respiratory pattern, no audible wheezes and no cough Cardio Jugular venous distension: no JVD GI Inspection: Yes normal to inspection Back/Spine/Pelvis Other: Vijay is able to stand on bilateral tiptoes and bilateral heels demonstrating normal strength of bilateral lower extremities. He denies any numbness in bilateral lower extremities. Flexing forward does not change his pain. Flexing backwards aggravate his pain moderately. Loading test is positive on the left. Negative Kamron test negative Gaenslen test bilaterally. SLR is negative bilaterally. Lasegue test is negative bilaterally. Coughing or sneezing Valsalva maneuver does not aggravate his pain. Neuro General: patient oriented x3, gait normal and No confusion Cranial nerves: Yes CN's II-XII intact bilaterally, Yes Equal, round and reactive pupils present, Yes Normal hearing present and Yes Ability to bilaterally elevate shoulders present Speech: No Abnormal speech present Gait exam (Neuro): Normal gait present Motor exam (neuro): 5/5 motor strength present throughout Sensory Exam: No Sensory deficit (Neuro) Extrem General: No pedal edema Psych Speech and movement: Normal speech and movement present Affect: normal affect Attitude: cooperative Thought process: Normal thought process present Thought content: Normal thought content present Insight: Good insight present (Psych) Judgement: Good judgement present (Psych) Results Reviewed Results Reviewed: MRI lumbar spine [place] 03/17/2025. Alignment vertebra marrow and discs: Grade 1 anterolisthesis of L3 on L4 has increased since prior. Otherwise alignment is maintained. Vertebral body heights are maintained. There are Modic type 1 signal changes at L3-L4 which have increased in extent compared to the previous exam and there also now moderate type 1 signal changes at L4-5 to the right of the midline at L5-S1 to the right of the midline. Diffuse endplate osteophytes. Multilevel facet arthropathy. Conus: The conus is normal in signal and contour with normal level of termination at L1. Paraspinal tissues: There is atrophy of the posterior paraspinal musculature. Areas of increased fluid signal most prominent posterior to the L4 through S1 levels left greater than right probably postsurgical changes. By level: L1-L2: Facet arthropathy no significant canal stenosis or neural foraminal narrowing L2-L3: There is right laminotomy defect partial facet resection on the right. Disc osteophyte complex and facet spurring again demonstrated with mild spinal canal narrowing and mild bilateral neural foraminal narrowing similar to prior. L3-L4 there are bilateral laminectomy defects. Postsurgical changes from partial facetectomy. Marginal osteophytes. No significant canal stenosis. Mild left and moderate right neural foraminal narrowing increased from prior on the right and unchanged in the left. There is again severe left and mild right neural foraminal narrowing with compression of the exiting left L3 nerve root similar to prior. L4-5: Bilateral laminotomy defect. Surgical changes from partial facetectomy. Disc osteophyte complex. No significant canal stenosis. Mild left and moderate right neural foraminal narrowing, increased from prior on the right and unchanged in the left. L5-S1 bilateral laminotomy defects. Marginal osteophytes and facet spurring. No significant there is again mild left and moderate right neural foraminal narrowing similar to prior. Impression: Postsurgical and degenerative changes of the lumbar spine as detailed above. Moderate right neural foraminal narrowing at L4-5 has increased. The findings are otherwise similar to previous exams. Again severe left neural foraminal narrowing L3-L4 and exiting L3 nerve root on the left compression which is similar to prior. Assessment & Plan Assessment & Plan (1) Vertebrogenic low back pain: Code(s): M54.51 - Vertebrogenic low back pain Category: Medical (2) Spondylosis of lumbar region without myelopathy or radiculopathy: Code(s): M47.816 - Spondylosis without myelopathy or radiculopathy, lumbar region Category: Medical (3) Facet arthropathy, lumbar: Code(s): M47.816 - Spondylosis without myelopathy or radiculopathy, lumbar region Category: Medical (4) Chronic pain syndrome: Code(s): G89.4 - Chronic pain syndrome Category: Medical (5) Postlaminectomy syndrome of lumbar region: Code(s): M96.1 - Postlaminectomy syndrome, not elsewhere classified Category: Medical Plan The MRI of this patient is quite impressive and yet it is partially concordant with physical exam only. On physical exam SLR and Lasegue is negative and that should be positive if his pain is coming from the left compressed L3 nerve root. Loading test positive on the left make me think about facet degeneration and his pain being facetogenic in nature. I offered him and he agreed to go for diagnostic left L2, L3, L4, dorsal ramus L5 medial branch blocks. I may also consider vertebra genic pain syndrome since he has widespread Modic type changes in his lumbar spine. If the medial branch block will not be effective to control his pain possibilities left to treat his pain with intracept procedure as well as transforaminal L3-L4 epidural steroid injection. All of this was carefully discussed with the patient. All questions were answered. MRI was examined and my impression of the exam was explained to the patient. Patient Instructions: I here by testify that I spent 48 minutes in conversation with this patient evaluating his diagnostic reports, evaluating his diagnostic images, as well as planning his care and organizing this note Coding Level of Care Code Est Pt Level 5 (89693) Diagnoses Vertebrogenic low back pain M54.51 Spondylosis of lumbar region without myelopathy or radiculopathy M47.816 Facet arthropathy, lumbar M47.816 Chronic pain syndrome G89.4 Postlaminectomy syndrome of lumbar region M96.1
== END 2025-03-28 15:57 | disposition home or self-care (01) ==
LOC: HO.PMC 15:23
PROVIDERS: PCP Nurse Practitioner Primary Care; Visit Provider Anesthesiology
DX: M54.51 Vertebrogenic low back pain (principal); M47.816 Spondylosis without myelopathy or radiculopathy, lumbar region; G89.4 Chronic pain syndrome; M96.1 Postlaminectomy syndrome, not elsewhere classified
CPT/HCPCS: 99215

== ENCOUNTER 2025-04-01 13:40 | Outpatient (AMB) | payer OTHER, SELFPAY ==
--- NOTE | 2025-04-01 13:40 | MHC.OFFVIS ---
Intake Visit Reasons: surgery discussion Intake Note: Patient is present for follow up [facility] would like to discuss Sgy Urology Medication:TAMSULOSIN Antibiotic Allergy:NONE Blood Thinner:NONE PVR:40 ml Senior Cytotechnologist Required: No Accompanied by: Self / Same As Patient Allergies codeine (CODEINE) Allergy (Unknown, Verified 04/01/25 14:25) FACIAL SWELLING, RASH [id number] Reductase Inhibitor Adverse Reaction (Intermediate, Verified 04/01/25 14:25) Joint Pain Medication List - Last Reconciled 04/01/25 by DEENA MarianoP- diltiazem HCl ER 240 mg PO DAILY ezetimibe (Zetia) 10 mg PO DAILY lisinopril 10 mg PO QAM meloxicam 15 mg PO DAILY paroxetine HCl ER 25 mg PO DAILY tamsulosin (Flomax) 0.8 mg (2 x 0.4 mg) PO BEDTIME 90 days HPI Comments Details: Vijay is a pleasant 64-year-old male patient of Dr. Cesar. He has a past medical history of complex tear of medial meniscus of knee, hypertension, generalized anxiety disorder, impaired fasting glucose, mixed dyslipidemia, spondylosis of cervical spine, and cervicalgia. He presents to the office today for follow-up of his lower urinary tract symptoms. In discussion with the patient today he reports compliance with tamsulosin as prescribed. Of note, during last visit 6 months ago patient underwent an office cystoscopy with Dr. Chaparro 09/25 at which time cystoscopy noted tight bladder neck and recommendations were made for plasma button procedure. It appears patient had been scheduled however this was canceled as patient wished. In discussion with the patient today he reports he would like to move forward with surgical intervention. He has previously trialed terazosin and alfuzosin however experience issues with dizziness, retrograde ejaculation, and nasal congestion. Previous workup has also included a retroperitoneal ultrasound 02/22 noting bilateral kidneys with no calculi, lesions, and or hydronephrosis noted. The bladder is well distended and normal. Prostate is enlarged with a volume of 41 mL. PSAs are as follows... 06/22 2.2, 07/24 3.3, 01/23 3.1, 02/22 2.1, 10/26 2.1 He otherwise denies incontinence, nocturia, hematuria, dysuria, foul-smelling urine, flank pain, fever, and or chills. In office urinalysis results reviewed with the patient today. PVR 40 mL. We discussed surgical intervention in risks and benefits of this intervention. All questions were answered. He does discuss his follow-up appointments here at [facility] with pain management as well as our spine Center for ongoing back pain he continues to experience. Patient otherwise denies any urinary issues or concerns at this time. [facility], LAT[facility] Medical History Generalized anxiety disorder Impaired fasting glucose Right knee pain Complex tear of medial meniscus of knee Mixed dyslipidemia Essential hypertension Spondylosis of cervical spine Cervicalgia Surgical History H/O elbow surgery History of appendectomy H/O cervical spine surgery Hx of colonoscopy Family History Father Myocardial infarction HTN (hypertension) Mental health disorder Substance use disorder Mother Myocardial infarction Multiple sclerosis Brother Substance use disorder Sister Substance use disorder Social History Housing: House Alcohol intake: current Alcohol intake frequency: a few times a month Patient Tobacco Use Status: Never used Tobacco e-Cigarette/Vaping Use: Never Used service: No Current occupational status: employed Cognitive needs: No Hearing needs: No Vision needs: No Review of Systems Const All systems reviewed & are unremarkable except as noted in HPI and below Reports no additional complaints Eyes Reports no additional complaints ENT Reports no additional complaints Card Reports as per HPI Resp Reports no additional complaints GI Reports no additional complaints Reports as per HPI Musc Reports as per HPI Neuro Reports no additional complaints Psych Reports as per HPI Endo Reports as per HPI Florian/Lymph Reports no additional complaints Aller/Immun Reports no additional complaints Physical Exam Const General: cooperative, healthy appearing, comfortable, no acute distress, well developed, alert and awake Orientation/consciousness: patient oriented x3 Limitations: no limitations HEENT Head: Yes normal to inspection, Yes normocephalic and Yes atraumatic Ears: hearing grossly normal bilaterally Eyes General: appearance normal, both eyes and all related structures Neck Neck: Yes normal visual inspection and Yes trachea midline Chest Chest palpation & inspection: normal inspection of the chest Resp Effort & Inspection: normal respiratory effort and able to speak in complete sentences Cardio Rate: regular rate GI Inspection: Yes normal to inspection General: Yes no CVA tenderness Back/Spine/Pelvis Back: no CVA tenderness Skin General skin exam: no rashes or lesions noted Neuro General: patient oriented x3 Extrem General: Yes normal to inspection Psych Appearance: grossly normal and well kempt Mental Status: mental status grossly normal Speech and movement: Normal speech and movement present and Clear speech present Affect: normal affect Attitude: cooperative Thought process: Normal thought process present Thought content: Normal thought content present Insight: Fair insight present (Psych) Judgement: Fair judgement present (Psych) Assessment & Plan Assessment & Plan (1) BPH loc w urin obs/LUTS: Comment: Patient is establish care with Urology. Currently taking tamsulosin with good effect Code(s): N40.1 - Benign prostatic hyperplasia with lower urinary tract symptoms Category: Medical Plan: Risks, benefits and alternatives to therapy were discussed. These include but are not limited to infection, bleeding, damage to local organs and tissues, need for further interventions. ? Anesthetic risks regarding cardiac arrhythmia, blood clots, and potential mortality were discussed. The patient understands the typical recovery time and the outpatient nature of the procedure. After consideration of these risks the patient gives full informed consent and they wish to move ahead with the procedure. Plan In office urinalysis results reviewed with the patient today; as noted above. PVR 40 mL. We did discuss surgical intervention; we discussed risks and benefits of this intervention All questions were answered. Continue Flomax as discussed and prescribed. We discussed obtaining PSA for further assessment evaluation. Will schedule for plasma button procedure Follow-up per doctor's orders; or sooner with any issues, concerns, and or questions. Orders: Orders Prostate Specific Antigen Today N40.1 - Benign prostatic hyperplasia with lower urinary tract symptoms Patient Instructions: The patient had an opportunity to ask questions regarding the treatment plan. All questions were answered. Physical exam, labs, and imaging were discussed and reviewed in detail. As well as risks, benefits, and discussion of treatment choices. No major barriers to understanding were identified. The patient expressed understanding and agreement with the above treatment plan. The patient was made aware they should contact our office by phone for worsening of their current condition, the appearance of new symptoms, or with any questions or concerns. Compliance is encouraged with any medications and follow up testing that is ordered. It is a privilege to be allowed the opportunity to participate in? your urological care.? Again, if you have any questions or concerns If you have any questions or concerns please do not hesitate to contact me. The office is [phone]. This note is constructed using voice recognition software. While every effort has been made to ensure accuracy newspaper inserter errors may have been included. Yours sincerely, AURELIA Mariano Coding Level of Care Code Est Pt Level 4 (97464) Complex EM visit Add On G2211 Diagnoses BPH loc w urin obs/LUTS N40.1
--- OUTSIDE RECORDS SUMMARY | 2025-04-01 14:10 | XMS_ITS | Clinical Summary ---
Author Organization [facility] ity Address [address] [place] [address] Care Team Providers Care Barrel Reamer Name Role Phone Deep Vigil MD Primary Care Provider Unavaila ble Social History Tobacco Use Types Packs/Day Years Used Date Smoking Tobacco: Never Assessed Sex and Gender Information Value Date Recorded Sex Assigned at Not on file Legal Sex Male 2:43 PM EST Gender Identity Not on file Sexual Orientation Not on file Plan of Treatment Health Maintenance Due Date Last Done Comments DTaP,Tdap,and Td Vaccines (1 - Tdap) 1980 Pneumococcal Vaccine: 50+ Ye ars (1 of 1 - PCV) 2011 Zoster Vaccines (1 of 2) 2011 Cholesterol Screening (Lipid Panel) 09/01/2022 Colorectal Cancer Screening: Colonoscopy 09/01/2022 Depression Screening 09/01/2022 HIV Screening 09/01/2022 Hepatitis C Screening 09/01/2022 Social Influencers of Health Screening 09/01/2022 COVID-19 Vaccine ( - 2023-2 5 season) 2024 Influenza Vaccine (Season Ended) 2025 RSV Immunization Adult Patie nts (1 - 1-dose 75+ series) 2036 HIB Vaccines Aged Out No longer eligi ble based on patient's age to complete this topic HPV Vaccines Aged Out No longer eligi ble based on patient's age to complete this topic Hepatitis A Vaccines Aged Out No long er eligible based on patient's age to complete this topic Hepatitis B Vaccines Aged Out No long er eligible based on patient's age to complete this topic IPV Vaccines Aged Out No longer eligi ble based on patient's age to complete this topic MMR Vaccines Aged Out No longer eligi ble based on patient's age to complete this topic Meningococcal ACWY Vaccine Aged Out N o longer eligible based on patient's age to complete this topic Meningococcal B Vaccine Aged Out No l onger eligible based on patient's age to complete this topic Pneumococcal Vaccine: Pediat rics (0 to 5 Years) and At-Risk Patients (6 to 64 Years) Aged Out No longer eligible b ased on patient's age to complete this topic RSV Immunization Patients Un rosendo 20 months Aged Out No longer eligible b ased on patient's age to complete this topic Varicella Vaccines Aged Out No longer eligible based on patient's age to complete this topic Care Teams Barrel Reamer Relationship Specialty Start Date End Date Deep Vigil MD PCP - General 11/23/06
--- OUTSIDE RECORDS SUMMARY | 2025-04-01 14:10 | XMS_ITS | Patient Health Record ---
[facility] Address [address] [place] [address] Care Team Providers Care Wwe Wrestler Name Role Phone Arsenio MATTHEWS, Deja Cabrera Primary Care Provider Un available Sid Heriberto Unavailable [phone] Allergies Allergen (clinical drug ingredient) Drug/Non Drug Allergy documented on EMR Reaction Allergy Type Onset Date Status codeine Codeine rash Drug Allergy Active Reason For Referral No Information Medications Medication SIG (Take, Route, Frequency, Duration) Notes Start Date End Date Status Lisinopril 10 MG 1 tablet Orally Once a day; Duration: 30 day(s) Active PARoxetine HCl 25 1 tablet in the morn ing Orally Once a day Active Zetia 10 MG 1 tablet Orally Once a day; Duration: 30 day(s) Active dilTIAZem HCl ER Beads 240 MG 1 capsule Orally Once a day; Duration: 30 day(s) Active Fish Oil 1000 MG [...] X ray : Foot, right 3V 08/01/2020 [id number], [id number], JOINT/BURSA 1 10/12/2019 Insurance Providers Payer Name Payer Address Payer Phone Subscriber Number Group Number Insured Name Patient Relationship to Insured Coverage Start Date Coverage End Date [facility] [id number] [address] [address] [place] [address] [id number] Vijay Kirk i Self - patient is the insured Medical (General) History Medical History History ICD Code Anxiety High blood pressure Surgical History Surgery Date(Month/Year) neck surgery back surgery appendectomy 81 elbow sx, bilateral
--- OUTSIDE RECORDS SUMMARY | 2025-04-01 14:10 | XMS_ITS | Data Portability ---
Author Organization GARETH Payam Nesbitt [facility], [facility] Address [address] [place] [address] Care Team Providers Care Credit Operations Specialist Name Role Phone KYLAH DUNNE Primary Care Provider Assessment Encounter Date Assessment Date Assessment LastModified by Organization Details LastModified Time 02/22/2024 02/22/2024 Assessment: Bilateral thumb CMC arthritis Plan: Bilateral thumb TM joint cortisone injections performed today. Follow-up scheduled in about 4 months time for reinjection likely. [email or web address] Not available 02/22/2024 12:05:02 07/20/2024 07/20/2024 Assessment: Bilateral thumb CMC arthritis Plan: Bilateral thumb TM joint cortisone injections performed today. Follow-up scheduled in about 4 months time for reinjection likely. rx for meloxicam sent to his pharmacy for anti-inflammat ory treatment of advance arthritis. [email or web address] Not available 07/20/2024 13:42:14 12/28/2024 12/28/2024 Assessment: Bilateral thumb CMC arthritis Plan: Bilateral thumb TM joint cortisone injections performed today. Follow-up scheduled in about 4-5 months time for reinjection likely. [email or web address] Not available 12/28/2024 13:17:05 Plan of Treatment Reminders Order Date Submit Date Provider Last Modified By Organization Details Last Modified Time Details Appointments RECHE [facility] ELBOW 2024 01:00P M Cathy betancur MD Not available Not available Not available Lab None recor ded. Referral None recor ded. Procedures None recor ded. Surgeries None recor ded. Imaging None recor ded. Medication Orders melox icam 15 mg table t 2023 024 marleny [facility], [facility], [place], [address], 07/20/2024 13:42:44 melox icam 15 mg table t 2023 024 [email or web address] Not available 06/16/2024 10:47:47 lidoc aurora 5 % topic al patch 2023 024 [email or web address] Not available 06/16/2024 10:47:47 Patient TargetsNo targets recorded. Patient InstructionsNo instructions recorded. Reason for Referral None Reported. Results Created Date Observation Date Name Description Value Unit Range Abnormal Flag Note LastModifiedBy Organization Detail LastModifiedTime 06/01/20 24 09/28/2021 imagi ng/di agnos tic resul t No observ ation record ed. [email or web address] Not Available 05/05 21:55:03 06/01/20 24 03/15/2021 imagi ng/di agnos tic resul t No observ ation record ed. [email or web address] Not Available 05/05 21:55:10 Result Notes None recorded. Problems Name Problem SNOMED Code Status Onset Date Resolution Date Notes Provider Name and Address Organization Details Recorded Time Impingeme nt syndrome of right shoulder region 181609146016 102 Active 2016 Problem Code: M75.41; Problem Code Type: ICD-10; Status: 'A'; Not Available [facility] 4 11:58:54 Problem Notes None recorded. Procedures Surgical History Date Name Laterality Status Provider Name and Address Organization Details Recorded Time 5 JZCMC Inj completed Cathy Negrete MD [address], [place], [address], [facility] 12/28/2024 13:16:41 4 Hip Kenalog 1cc Injection, Bilateral completed Umer Camarillo PA-C [address], [place], [address], [facility] 09/10/2024 13:50:15 4 JZCMC Inj completed Cathy Negrete MD [address], [place], [address], [facility] 07/20/2024 13:41:35 4 Hip Kenalog 1cc Injection, Bilateral completed Umer Camarillo PA-C [address], [place], [address], [facility] 06/16/2024 09:05:28 4 Wrist Joint Kenalog Injection, Bilateral completed Cathy Negrete MD [address], [place], [address], [facility] 02/22/2024 12:04:30 Imaging Results None recorded. Procedure Notes None recorded. Medical Equipment None Reported. Allergies Allergen ID Allergen Name Allergen Category Reaction Reaction Severity Criticality Documentation Date Start Date Code Code System Note Provider Name and Address Organization Details Recorded Time 13749 codeine medicatio n Not available Not available Not available 12/05/20232016 2670 RxNorm Not Available [facility] 4 14:47:37 Medications Name Sig Start Date Stop Date Status Note LastModified by Organization Details LastModified Time cyclobenzap rine 10 mg tablet TAKE 1 TABLET BY MOUTH THREE TIMES DAILY active Not Available Not Available No t Available terazosin 5 mg capsule active Not Available Not Available N ot Available buspirone 5 mg tablet active Not Available Not Available No t Available azithromyci n 250 mg tablet 06/16 completed Not Available Not Available Not Available benzonatate 200 mg capsule TAKE 1 CAPSULE BY MOUTH THREE TIMES A DAY NEEDED FOR COUGH active Not Available Not Available No t Available hydrocodone 5 mg-acetamin ophen 325 mg tablet TAKE 1 TABLET BY MOUTH EVERY 4-6 HOURS active Not Available Not Available No t Available meloxicam 15 mg tablet TAKE 1 TABLET DAILY 2024 active Not Available Not Available Not Avai lable clonazepam 0.5 mg tablet TAKE 1 TABLET BY MOUTH EVERY DAY NEEDED active Not Available Not Available No t Available diltiazem ER 240 mg capsule,24 hr,extended release active Not Available Not Available Not Available penicillin V potassium 500 mg tablet TAKE 1 TABLET BY MOUTH TWICE DAILY active Not Available Not Available No t Available amoxicillin 500 mg tablet active Not Available Not Available Not Available acetaminoph en ER 650 mg tablet,exte nded release active Not Available Not Available Not Available tamsulosin 0.4 mg capsule active Not Available Not Available Not Available cephalexin 500 mg capsule active Not Available Not Available Not Available lisinopril 10 mg tablet active Not Available Not Available Not Available lidocaine 5 % topical patch APPLY 1 PATCH TOPICALLY TO THE SKIN DAILY. MAY WEAR UP TO 12 HOURS active Not Available Not Available No t Available zolpidem 5 mg tablet active Not Available Not Available No t Available methylpredn isolone 4 mg tablets in a dose pack FOLLOW PACKAGE DIRECTION S 06/16 completed Not Available Not Available Not Available terazosin 10 mg capsule 06/16 completed Not Available Not Available Not Available paroxetine ER 25 mg tablet,exte nded release 24 hr active Not Available Not Available Not Available paroxetine ER 37.5 mg tablet,exte nded release 24 hr active Not Available Not Available Not Available escitalopra m 10 mg tablet active Not Available Not Available Not Available alfuzosin ER 10 mg tablet,exte nded release 24 hr active Not Available Not Available Not Available pregabalin 75 mg capsule TAKE 1 CAPSULE BY MOUTH THREE TIMES DAILY active Not Available Not Available No t Available chlorhexidi ne gluconate 0.12 % mouthwash RINSE MOUTH WITH 15ML (1 CAPFUL) FOR 30 SECONDS IN MORNING AND EVENING AFTER BRUSHING, THEN SPIT active Not Available Not Available No t Available Paxlovid 300 mg (150 mg x 2)-100 mg tablets in a dose pack TAKE BY ORAL ROUTE 2 TIMES EVERY DAY FOR 5 DAYS PER PACKAGE DIRECTION S active Not Available Not Available No t Available Vitals Date Recorded Body height Body mass index (BMI) Body weight Provider Name and Address Organization Details Last Updated DateTime 12/28/2024 185.42 cm 26.4 kg/m2 72247.47 g GALLO ALAS [place] - [facility] 12/28/2024 13:10:38 Date Recorded Body height Provider Name an d Address Organization Details Last Updated DateTime 02/22/2024 182.88 cm CAROL BARRETT [place] - [facility] 02/22/2024 11:46:12 Date Recorded Body height Body mass index (BMI) Body weight Provider Name and Address Organization Details Last Updated DateTime 06/16/2024 185.42 cm 26.4 kg/m2 45637.47 g CATIE CASPER [facility] 06/16/2024 08:11:27 Date Recorded Body height Body mass index (BMI) Body weight Provider Name and Address Organization Details Last Updated DateTime 07/20/2024 185.42 cm 26.4 kg/m2 50822.47 g GALLO ALAS [facility] 07/20/2024 13:33:30 Date Recorded Body height Provider Name an d Address Organization Details Last Updated DateTime 09/10/2024 185.42 cm ADAM HURT [facility] 09/10/2024 14:21:30 Social History None recorded. Functional Status None recorded. Mental Status None recorded. Family History Nothing Reported. Medical History No medical history recorded. Past Encounters Encounter ID Performer Location Encounter Start Date Encounter Closed Date Diagnosis/Indication Diagnosis SNOMED-CT Code Diagnosis ICD10 Code Diagnosis Note [id number] MD Luis F Tim [address] [facility] [address] [place] [address] 02/22/2024 11:25:32 03/15/2024 19:50:11 Osteoarthrosis of the carpometacarpal joint of the thumb 17077025 M18.9 [id number] IWONA Varela [address] [place] [place] [address] 06/16/2024 08:00:35 06/16/2024 09:06:29 Osteoarthritis of right knee joint 9560079629 17404 M17.11 Trochanter ic bursitis of right hip 5906276462 95706 M70.61 Trochanter ic bursitis of left hip 4492246121 38042 M70.62 [id number] MD Luis F Tim [address] [place] [address] 07/20/2024 13:26:34 08/08/2024 11:59:46 Osteoarthrosis of the carpometacarpal joint of the thumb 66962559 M18.9 [id number] IWONA Varela [address] [place] [address] 09/10/2024 14:16:39 10/08/2024 08:58:12 Trochanteric bursitis of right hip 7165520582 23541 M70.61 Trochanter ic bursitis of left hip 7494940742 83005 M70.62 [id number] MD MAR Tim - Luis F [address] [place] [address] 12/28/2024 12:55:59 01/10/2025 09:43:37 Osteoarthrosis of the carpometacarpal joint of the thumb 74084662 M18.9 Health Concerns Section Related Observation LastModified by Organization Detai ls LastModified Time None Recorded Concern Status LastModified by Organization Details LastModified Time None Recorded Advance Directives Directive None Recorded Payers Insurance Date Sequence Insurance Name Policy Number Policy Hidalgo Covered Member ID Hidalgo Member ID Guarantor Name 01/10/2025 1 [facility] [id number] Vijay Scales [id number] Vijay Scales Notes Date Note Type Note Provider Name and Address Organization Details Recorded Time 02/22/2024 text/html Patient is a 63-year-old male seen in follow-up for bilateral thumb CMC arthritis. Injections last about 4 months. Here today for reinjection. Cathy Negrete MD [address], [place], [address], [facility] - [place] [facility] 02/22/2024 12:05:15 06/16/2024 text/html I am seeing the patient today under the supervision of Dr. Valdez who was available but who did not see the patient. Reason For VisitThe patient presents today for follow-up. Has known trochanteric bursitis of the hips bilaterally. Has had previous cortisone injection which gave relief until recently. Has had no recent trauma, no fevers or chills, no neurovascular changes. Presents today for further evaluation. Past Medical/Surgical HistoryPast medical history is reviewed per intake sheet. Physical Findings On physical examination, the patient is well appearing and in no apparent distress, alert and oriented x3. Gait is symmetric. Physician examination of the hips reveal the skin to be intact, normal musculature, continued tenderness on palpation over the greater trochanter. No pain with range of motion of the hip, has full range of motion, no crepitus noted with range of motion. No significant pain with straight leg raise. AssessmentSymptomat ic trochanteric bursitis of the hips bilaterally Plan I reviewed the findings with the patient, discussed different treatment options. The patient wishes to proceed with cortisone injection. Prior to giving injection, does understand the risks. Under sterile technique, given a cortisone injection with 4 cc 1/4 percent Marcaine, 40 mgs Kenalog. Tolerated this well. Monitor the effects and follow-up as needed. Umer Camarillo PA-C [address], [place], [address], [facility] 06/16/2024 09:06:05 07/20/2024 text/html Patient is a 63-year-old male seen in follow-up for bilateral thumb CMC arthritis. Injections last about 4 months. Here today for reinjection. Cathy Negrete MD [address], [place], [address], [facility] 07/20/2024 13:42:29 09/10/2024 text/html I am seeing the patient today under the supervision of Dr. Valdez who was available but who did not see the patient. Reason For VisitThe patient presents today for follow-up. Has known trochanteric bursitis of the hips bilaterally. Has had previous cortisone injection which gave relief until recently. Has had no recent trauma, no fevers or chills, no neurovascular changes. Presents today for further evaluation. Past Medical/Surgical HistoryPast medical history is reviewed per intake sheet. Physical Findings On physical examination, the patient is well appearing and in no apparent distress, alert and oriented x3. Gait is symmetric. Physician examination of the hips reveal the skin to be intact, normal musculature, continued tenderness on palpation over the greater trochanter. No pain with range of motion of the hip, has full range of motion, no crepitus noted with range of motion. No significant pain with straight leg raise. AssessmentSymptomat ic trochanteric bursitis of the hips bilaterally Plan I reviewed the findings with the patient, discussed different treatment options. The patient wishes to proceed with cortisone injection. Prior to giving injection, does understand the risks. Under sterile technique, given a cortisone injection with 4 cc 1/4 percent Marcaine, 40 mgs Kenalog. Tolerated this well. Monitor the effects and follow-up as needed. Umer Camarillo PA-C [address], [place], [address], [facility] 09/10/2024 16:40:48 12/28/2024 text/html Patient is a 64-year-old male seen in follow-up for bilateral thumb CMC arthritis. Injections last about 4-5 months. Here today for reinjection. Cathy Negrete MD [address], [place], [address], [facility] 12/28/2024 13:17:29
== END 2025-04-01 14:32 | disposition home or self-care (01) ==
LOC: HO.HUSH 13:41
PROVIDERS: PCP Nurse Practitioner Primary Care; Visit Provider Nurse Practitioner Family
DX: N40.1 Benign prostatic hyperplasia with lower urinary tract symptoms (principal); Z13.9 Encounter for screening, unspecified
CPT/HCPCS: 99214

== ENCOUNTER → 2025-04-01 13:40 | Outpatient (BNVA) | payer OTHER, SELFPAY | PROVIDERS: PCP Nurse Practitioner Primary Care; Visit Provider Nurse Practitioner Family | DX: M54.50 Low back pain, unspecified (principal) | CPT/HCPCS: 51798; 81003 ==

== ENCOUNTER 2025-04-01 14:30 | Outpatient (AMB) | payer OTHER, SELFPAY ==
--- NOTE | 2025-04-01 14:34 | A.SPINEOV_ITS ---
Intake Visit Reasons: chronic back pain Intake Note: Mr. Scales is here today c/o Chronic back pain. Integrated Marketing Manager Required: No Allergies codeine (CODEINE) Allergy (Unknown, Verified 04/01/25 14:25) FACIAL SWELLING, RASH Fyxtqzy-HBM-QkK Reductase Inhibitor Adverse Reaction (Intermediate, Verified 04/01/25 14:25) Joint Pain Results AMB Urinalysis, Automated UA Leukoctes 0 Sarina/uL Last Edit by Kiersten [place], [place] on 04/01/25 14:57 UA Nitrite Negative Last Edit by Kiersten [place], [place] on 04/01/25 14:57 UA Urobilinogen 3.5 mg/dL Last Edit by Kiersten [place] on 04/01/25 14:57 UA Protein 0 mg/dL Last Edit by Kiersten [place] on 04/01/25 14:57 UA pH 6.0 Last Edit by Kiesrten [place], [place] on 04/01/25 14:57 UA Blood 0 John/uL Last Edit by Kiersten [place] on 04/01/25 14:57 UA Specific [place] 1.015 [facility] [place] [facility] 04/01/25 14:57 UA Ketone Negative Last Edit by [facility], [place] on 04/01/25 14:57 UA Bilirubin 0 mg/dL Last Edit by Kiersten [place] on 04/01/25 14:57 UA Glucose 0 mg/dL [facility] [place] on 04/01/25 14:57 Assessment & Plan Assessment & Plan (1) Spondylolisthesis at L3-L4 level: Code(s): M43.16 - Spondylolisthesis, lumbar region Category: Medical Plan Vijay is a pleasant 64 year old male who comes in today for subsequent evaluation of low back pain and shooting pains into his anterior left lower extremity. To recap he was evaluated last December by this property underwriter and Dr. Crocker on a day we did clinic together. Dr. Crocker recommended a L3-4 Transkambin lumbar fusion to address the severely degenerated disc and decompress the L4 nerve root. He was placed on the surgical schedule for 02/14/2024. He did not show up for surgery and ended up deciding to have a decompression completed by another surgeon instead. He reports good relief of his left lower extremity and back pain for about 6 months. Unfortunately the surgeon he saw no longer is in practice. He reports that around October he began expriencing the same recurrence of pain. He was recently evaluated by our colleagues in pain management who recommended a series of injections, with discussion of possible intracept procedure. I reviewed his most recent MRI imaging which shows worsening degeneration of the L3-4 disc space, and new type 2 modic endplate changes at L3-4. Re-demonstrated grade 1 spondylolithesis at L3-4. 64 year old male suffering from worsening degenerative changes at L3-4. Came in today for subsequent evaluation after cancelling L3-4 transkambin lumbar fusion offered by Dr. Crocker in December of last year to pursue more conservative treatments. It sounds like the patient is currently in discussion with our colleagues at pain management to try and pursue conservative measures once more. I encouraged him to continue pursuing conservative treatments for this, and to come back and see us again if he has exhausted all other treatment and would like to discuss a surgical solution to resolve his problem. Enrico Crocker MD,PhD [facility] Coding Level of Care Code Est Pt Level 2 (45000) Diagnoses Spondylolisthesis at L3-L4 level M43.16
--- OUTSIDE RECORDS SUMMARY | 2025-04-01 15:02 | XMS_ITS ---
Author Name CRISP Organization Unknown Encounters Encounter Type Encounter Reason Primary Diagnosis Location Date Ambulatory Other low back pain Other low back pain [facility] 08/06/2023 Care Team Organization Name Specialty Phone Email Start Date End Da te [facility] 3 08/06/2023 [facility] 08/06/2023
== END 2025-04-01 15:10 | disposition home or self-care (01) ==
LOC: HO.HNS 14:32
PROVIDERS: PCP Internal Medicine; Visit Provider Physician Assistant
DX: M43.16 Spondylolisthesis, lumbar region (principal)
CPT/HCPCS: 99212

== ENCOUNTER → 2025-04-04 14:03 | Outpatient (BNVA) | payer OTHER, SELFPAY | PROVIDERS: PCP Nurse Practitioner Primary Care | DX: I10 Essential (primary) hypertension (principal) | CPT/HCPCS: 99211 ==

== ENCOUNTER 2025-04-19 12:31 | Day surgery (SDC) | payer OTHER, SELFPAY ==
--- OUTSIDE RECORDS SUMMARY | 2025-04-18 14:52 | XMS_ITS | Data Portability ---
Author Organization GARETH Payam Nesbitt Cthudson [facility], [facility] Address [address] [place] [address] Care Team Providers [employer] Principal Name Role Phone KYLAH DUNNE Primary Care [...] Organization Details Last Modified Time Details Appointments NEW PROBL EM 2024 02:45P M Dilan Reyes PA-C Not available Not available Not available RECHE CK ELBOW 2024 01:00P M Cathy betancur MD Not available Not available Not available Lab None recor ded. Referral None recor ded. Procedures None recor ded. Surgeries None recor ded. Imaging None recor ded. Medication Orders melox icam 15 mg table t 2023 marleny [facility], [address] [place] [address], [address], 07/20/2024 13:42:44 melox icam 15 mg table [...] Impingeme nt syndrome of right shoulder region [id number] 102 Active 2016 Problem Code: M75.41; Problem Code Type: ICD-10; Status: 'A'; Not Available [facility] 4 11:58:54 Problem Notes None recorded. Procedures Surgical History Date Name Laterality Status Provider Name and Address Organization Details Recorded Time 5 JZCMC Inj completed Cathy Negrete MD [address], [place], [address], [facility] 12/28/2024 13:16:41 4 Hip Kenalog 1cc Injection, Bilateral completed Umer Camarillo PA-C [address], [place], [address], [facility] 09/10/2024 13:50:15 4 JZCMC Inj completed Cathy Negrete MD [address], [place], [address], [facility] 07/20/2024 13:41:35 4 Hip Kenalog 1cc Injection, Bilateral completed Umer Camarillo PA-C [address], [place], [address], [facility] 06/16/2024 09:05:28 4 Wrist Joint Kenalog Injection, Bilateral completed Cathy Negrete MD [address], [place], [address], [facility] 02/22/2024 12:04:30 Imaging Results None recorded. Procedure Notes None recorded. Medical Equipment None Reported. Allergies Allergen ID Allergen Name Allergen Category Reaction Reaction Severity Criticality Documentation Date Start Date Code Code System Note Provider Name and Address Organization Details Recorded Time 60600 codeine medicatio n Not available Not available Not available 12/05/20232016 2670 RxNorm Not Available [facility] 14:47:37 Medications Name Sig Start Date Stop [...] Updated DateTime 12/28/2024 185.42 cm 26.4 kg/m2 06171.47 g GALLO ALAS [facility] 12/28/2024 13:10:38 Date Recorded Body height Provider Name an d Address Organization Details Last Updated DateTime 02/22/2024 182.88 cm CAROL BARRETT [facility] 02/22/2024 11:46:12 Date Recorded Body height Body mass index (BMI) Body weight Provider Name and Address Organization Details Last Updated DateTime 06/16/2024 185.42 cm 26.4 kg/m2 32552.47 g CATIE CASPER [facility] 06/16/2024 08:11:27 Date Recorded Body height Body mass index (BMI) Body weight Provider Name and Address Organization Details Last Updated DateTime 07/20/2024 185.42 cm 26.4 kg/m2 64362.47 g GALLO ALAS [facility] 07/20/2024 13:33:30 Date Recorded Body height Provider Name an d Address Organization Details Last Updated DateTime 09/10/2024 185.42 cm ADAM CHRISTIANSENMAURAJOSE [facility] 09/10/2024 14:21:30 Social History None recorded. Functional Status None recorded. Mental Status None recorded. Family History Nothing Reported. Medical History No medical history recorded. Past Encounters Encounter ID Performer Location Encounter Start Date Encounter Closed Date Diagnosis/Indication Diagnosis SNOMED-CT Code Diagnosis ICD10 Code Diagnosis Note [id number] MD Luis F Tim [address] [place] [address] [address] [place] [address] 02/22/2024 11:25:32 03/15/2024 19:50:11 Osteoarthrosis of the carpometacarpal joint of the thumb 19743172 M18.9 [id number] IWONA Varela [address] [place] [address] [address] [place] [address] 06/16/2024 08:00:35 06/16/2024 09:06:29 Osteoarthritis of right knee joint 0954624995 86987 M17.11 Trochanter ic bursitis of right hip 8036364366 20541 M70.61 Trochanter ic bursitis of left hip 1691169890 62215 M70.62 [id number] MD Luis F Tim [address] [place] [address] 07/20/2024 13:26:34 08/08/2024 11:59:46 Osteoarthrosis of the carpometacarpal joint of the thumb 12352773 M18.9 [id number] IWONA Varela [address]nd [address] [place] [address] 09/10/2024 14:16:39 10/08/2024 08:58:12 Trochanteric bursitis of right hip 4436179255 38745 M70.61 Trochanter ic bursitis of left hip 0654861520 18257 M70.62 [id number] MD MAR Tim [address] [place] [address] 12/28/2024 12:55:59 01/10/2025 09:43:37 Osteoarthrosis of the carpometacarpal joint of the thumb 04557145 M18.9 Health Concerns Section Related Observation LastModified by Organization Detai ls LastModified Time None Recorded Concern Status LastModified by Organization Details LastModified Time None Recorded Advance Directives Directive None Recorded Payers Insurance Date Sequence Insurance Name Policy Number Policy Hidalgo Covered Member ID Hidalgo Member ID Guarantor Name 04/16/2025 1 [facility] [id number] Vijay Scales [id number] Vijay Scales Notes Date Note Type Note Provider Name and Address Organization Details Recorded Time 02/22/2024 text/html Patient is a 63-year-old male seen in follow-up for bilateral thumb CMC arthritis. Injections last about 4 months. Here today for reinjection. Cathy Negrete MD [address] [facility], [place], [address], [facility] 02/22/2024 12:05:15 06/16/2024 text/html I am seeing [...] follow-up as needed. Umer Camarillo PA-C [address], [place], [address], [facility] 06/16/2024 09:06:05 07/20/2024 text/html Patient is a 63-year-old male seen in follow-up for bilateral thumb CMC arthritis. Injections last about 4 months. Here today for reinjection. Cathy Negrete MD [address], [place], [address], [facility] 07/20/2024 13:42:29 09/10/2024 text/html I am seeing [...] follow-up as needed. Umer Camarillo PA-C [address], [place], [address], [facility] 09/10/2024 16:40:48 12/28/2024 text/html Patient is a 64-year-old male seen in follow-up for bilateral thumb CMC arthritis. Injections last about 4-5 months. Here today for reinjection. Cathy Negrete MD [address], [place], [address], [facility] 12/28/2024 13:17:29
--- OUTSIDE RECORDS SUMMARY | 2025-04-18 14:52 | XMS_ITS | Patient Health Record ---
Author Organization [facility] Address [address] [place] [address] Care Team Providers Care Paper Plate Machine Tender Name Role Phone Arsenio MATTHEWS, Deja Cabrera Primary Care Provider Un available Sid Heriberto Unavailable [phone] Allergies Allergen (clinical drug ingredient) Drug/Non Drug [...] X ray : Foot, right 3V 08/01/2020 [id number], [id number]/[id number], JOINT/BURSA 1 10/12/2019 Insurance Providers Payer Name Payer Address Payer Phone Subscriber Number Group Number Insured Name Patient Relationship to Insured Coverage Start Date Coverage End Date [facility] [id number] [address] [address] [place] [address] [id number] Vijay Kirk i Self - patient is the insured Medical (General) History Medical History History ICD Code Anxiety High blood pressure Surgical History Surgery Date(Month/Year) neck surgery back surgery appendectomy 81 elbow sx, bilateral
--- OUTSIDE RECORDS SUMMARY | 2025-04-18 14:52 | XMS_ITS | Clinical Summary ---
Author Organization [facility] ity Address [address] [place] [address] Care Team Providers Care Propagation Worker Name Role Phone Deep Vigil MD Primary [...] - 2023-2 5 season) 2024 Influenza Vaccine (#1) 2025 RSV Immunization Adult Patie nts (1 [...] age to complete this topic Care Teams Propagation Worker Relationship Specialty Start Date End Date Deep Vigil MD PCP - General 11/23/06
--- NOTE | ~2025-04-19 | FL_ITS ---
EXAMINATION: FL GUIDANCE ONLY HISTORY: Medial branch block COMPARISON: None available. TECHNIQUE: Fluoroscopy time: 27 seconds. Cumulative Dose: 7.4638 mGy. DAP: 2.6978 mGym2 Images: 4. FINDINGS: Fluoroscopic spot films of the lumbar spine demonstrate needles and contrast material in the regions of the left L2-3, L3-4, L4-5, and L5-S1 facet joints. FL/FL guidance in OR IMPRESSION: Fluoroscopy during procedure. Please see procedure report for additional information. Electronically signed by: Cortez Kendrick MD 04/19/2025 01:45 PM EDT
[2025-04-19 12:46] VITALS: BP 143/84; PULSE 71; RESP 16; TEMP 36.2; O2SAT 97; BMI 26.4
--- NOTE | 2025-04-19 12:50 | MHC.SHP ---
Pre-Procedural Eval Section A - 24 Hr Update-Section A only Date of Service: 04/19/25 The patient is an INPATIENT: No Changes since office visit: Yes Patient answered all questions The patient has been examined within 24 hours of the surgical procedure. The History & Physical has been completed within 30 days and I have reviewed it.: No Section B - Complete if H&P > 30 days Chief Complaint: Spondylosis without myelopathy or radiculopathy, l Details of Present Illness: As above Relevant Family History (Specify if Yes): No Relevant Social History: None Present Medications: see Short Stay Collaborative assessment Medical History: No relevant PMH History of Previous Operations: Relevant previous surgery/procedure and date(s) Allergies: Allergies Allergy/AdvReac Type Severity Reaction Status Date / Time codeine (CODEINE) Allergy Intermediate FACIAL Verified 04/19/25 12:42 SWELLING, RASH [id number]-[id number] Reductase AdvReac Intermediate Joint Pain Verified 04/19/25 12:42 Inhibitor Review of Systems Sugical H&P ROS: Negative: Constitution, Cardiovascular, Respiratory, Neurological, Psychiatric, Hem-Onc, Allergic/Immunologic, Gastrointestinal, Genitourinary, Musculoskeletal, Integumentary, Endocrine and Eyes/Ears/Nose/Throat Exam Surgical H&P Exam: Normal: HEENT, Normal: Heart, Normal: Lungs, Normal: Extremities, Normal: Abdomen, Normal: Skin and Normal: Neurological Plan Diagnosis/Plan: Unchanged I have reviewed the history and physical and performed a pertinent physical examination on my patient. No changes have occurred unless specified. Time Spent With Patient Time: Total time managing care of this patient today __5__ minutes.
--- NOTE | 2025-04-19 13:06 | PM.OP ---
Brief Operative Note Date of Service: 04/19/25 Pre-op diagnosis: Spondylosis lumbar Procedure: Diagnostic medial branch block L2, L3, L4, dorsal ramus L5 on the left Surgeon: Harpreet Uribe MD Anesthesia: local Was an Accounts Payable Assistant used for this Procedure?: No Estimated blood loss (mL): 0 Condition: stable Disposition: PACU
--- NOTE | 2025-04-19 13:29 | W.PM.OPN ---
Operative Note Operative Note Date of Service: 04/19/25 Narrative: Diagnostic medial branch block L2, L3, L4, dorsal ramus L5 on the left . Informed consent was thoroughly explained to the patient using Hospital interpreting services. Risks and benefits were explained. Patient expressed understanding. She was taken to the operating room and positioned prone on operating table. ASA monitors were applied. Patient was minimally sedated. Time-out was performed delineating name and date of of patient, nature of the procedure and laterality of the procedure. The lower back of the patient was prepped with ChloraPrep and draped with sterile self adhesive utility towels, C-arm was brought over the operating field and picture of the lower lumbar spine was demonstrated on the screen. The point of interest were delineated as the confluence of the left superior articular process of the L3 vertebra with corresponding left transverse process, as well as left superior articular process of L4 vertebra with corresponding left transfer process of the same vertebra as well as confluence of the silhouette of the left superior articular process of L5 vertebra with transfers process on the left of the same vertebra as well as confluence of the silhouette of the left superior articular process of S1 with left sacral ala. the projection of the point of interest to the skin was injected with small amount of lidocaine 2% with ropivacaine 0.5% one-to-one. After that the 22 gauge 3-1/2 inch needle was inserted through the skin wheals and advanced to were the point of interest. When the tip of the needle gently contacted the bone the small amount of the contrast was injected into the needle demonstrating no intravascular and no intrathecal space of the contrast. After that treatment solution of the ropivacaine 0.5% no more than 1 cc was injected in each point of interest. The needles were removed sterile Band-Aid was applied. The patient tolerated the procedure well.
[2025-04-19 13:32] VITALS: BP 141/80; PULSE 81; RESP 18; TEMP 36.8; O2SAT 100
== END 2025-04-19 13:35 | disposition home or self-care (01) ==
PROVIDERS: PCP Internal Medicine; Visit Provider Anesthesiology
PROC: (CPT 64493; principal; 2025-04-19 14:50)
DX: M47.816 Spondylosis without myelopathy or radiculopathy, lumbar region (principal); M96.1 Postlaminectomy syndrome, not elsewhere classified; G89.4 Chronic pain syndrome; M54.51 Vertebrogenic low back pain; M79.662 Pain in left lower leg; I10 Essential (primary) hypertension; E78.2 Mixed hyperlipidemia; F41.1 Generalized anxiety disorder; R73.01 Impaired fasting glucose; Z79.899 Other long term (current) drug therapy; Z88.5 Allergy status to narcotic agent; Z88.8 Allergy status to other drugs, medicaments and biological substances; Z98.890 Other specified postprocedural states
CPT/HCPCS: 64493; 64494; J2003; J2795; Q9967

== ENCOUNTER → 2025-04-19 12:31 | Outpatient (BNV) | payer OTHER, SELFPAY | PROVIDERS: PCP Internal Medicine; Visit Provider Anesthesiology | DX: M47.816 Spondylosis without myelopathy or radiculopathy, lumbar region (principal) | CPT/HCPCS: 64493; 64494 ==

== ENCOUNTER 2025-04-20 11:07 | Outpatient (REF) | payer OTHER, SELFPAY ==
--- OUTSIDE RECORDS SUMMARY | 2025-04-20 11:10 | XMS_ITS | Clinical Summary ---
Author Organization [facility] [address] ity Address [address] [place] [address] Care Team Providers Care Cable Strander Name Role Phone Deep Vigil MD Primary [...] age to complete this topic Care Teams Cable Strander Relationship Specialty Start Date End Date Deep Vigil MD PCP - General 11/23/06
--- OUTSIDE RECORDS SUMMARY | 2025-04-20 11:10 | XMS_ITS | Data Portability ---
Author Organization GRAETH Payam Nesbitt [facility]geons [facility], [facility] Address [address] [place] [address] Care Team Providers Care Inside Sales Coordinator Name Role Phone KYLAH DUNNE Primary Care [...] table t 2023 marleny [facility], [address] [place] [address], [address], 07/20/2024 13:42:44 melox icam 15 mg table [...] Impingeme nt syndrome of right shoulder region 546872600053 102 Active 2016 Problem Code: M75.41; Problem Code Type: ICD-10; Status: 'A'; Not Available [facility] 4 11:58:54 Problem Notes None recorded. Procedures Surgical History Date Name Laterality Status Provider Name and Address Organization Details Recorded Time 5 JZCMC Inj completed Cathy Negrete MD [address], [place], [address], [facility] 12/28/2024 13:16:41 4 Hip Kenalog 1cc Injection, Bilateral completed Umer Camarillo PA-C [address], [place], [address], [facility] 09/10/2024 13:50:15 4 JZCMC Inj completed Cathy Negrete MD [address], [place], [address], [facility] 07/20/2024 13:41:35 4 Hip Kenalog 1cc Injection, Bilateral completed Umer Camarillo PA-C [address], [place], [address], [facility] 06/16/2024 09:05:28 4 Wrist Joint Kenalog Injection, Bilateral completed Cathy Negrete MD [address], [place], [address], [facility] 02/22/2024 12:04:30 Imaging Results None recorded. Procedure Notes None recorded. Medical Equipment None Reported. Allergies Allergen ID Allergen Name Allergen Category Reaction Reaction Severity Criticality Documentation Date Start Date Code Code System Note Provider Name and Address Organization Details Recorded Time 36478 codeine medicatio n Not available Not available Not available 12/05/20232016 2670 RxNorm Not Available [facility] 14:47:37 Medications Name Sig Start Date Stop [...] Updated DateTime 12/28/2024 185.42 cm 26.4 kg/m2 32161.47 g GALLO ALAS [facility] 12/28/2024 13:10:38 Date Recorded Body height Provider Name an d Address Organization Details Last Updated DateTime 02/22/2024 182.88 cm CAROL BARRETT [facility] 02/22/2024 11:46:12 Date Recorded Body height Body mass index (BMI) Body weight Provider Name and Address Organization Details Last Updated DateTime 06/16/2024 185.42 cm 26.4 kg/m2 63651.47 g CATIE CASPER [facility] 06/16/2024 08:11:27 Date Recorded Body height Body mass index (BMI) Body weight Provider Name and Address Organization Details Last Updated DateTime 07/20/2024 185.42 cm 26.4 kg/m2 10431.47 g GALLO ALAS [facility] 07/20/2024 13:33:30 Date Recorded Body height Provider Name an d Address Organization Details Last Updated DateTime 09/10/2024 185.42 cm ADAM CHRISTIANSENMAURAJOSE [facility] 09/10/2024 14:21:30 Social History None recorded. Functional Status None recorded. Mental Status None recorded. Family History Nothing Reported. Medical History No medical history recorded. Past Encounters Encounter ID Performer Location Encounter Start Date Encounter Closed Date Diagnosis/Indication Diagnosis SNOMED-CT Code Diagnosis ICD10 Code Diagnosis Note [id number] MD Luis F Tim [address] [place] [address] [address] [place] [address] 02/22/2024 11:25:32 03/15/2024 19:50:11 Osteoarthrosis of the carpometacarpal joint of the thumb 72369111 M18.9 [id number] IWONA Varela [address] [place] [address] [address] [place] [address] 06/16/2024 08:00:35 06/16/2024 09:06:29 Osteoarthritis of right knee joint 9689032577 62761 M17.11 Trochanter ic bursitis of right hip 0762990965 00645 M70.61 Trochanter ic bursitis of left hip 2763843536 68409 M70.62 [id number] MD Luis F Tim [address] [place] [address] 07/20/2024 13:26:34 08/08/2024 11:59:46 Osteoarthrosis of the carpometacarpal joint of the thumb 93906211 M18.9 [id number] IWONA Varela [address]nd [address] [place] [address] 09/10/2024 14:16:39 10/08/2024 08:58:12 Trochanteric bursitis of right hip 0269335226 00692 M70.61 Trochanter ic bursitis of left hip 9065287461 04344 M70.62 [id number] MD MAR Tim [address] [place] [address] 12/28/2024 12:55:59 01/10/2025 09:43:37 Osteoarthrosis of the carpometacarpal joint of the thumb 76756934 M18.9 Health Concerns Section Related Observation LastModified by Organization Detai ls LastModified Time None Recorded Concern Status LastModified by Organization Details LastModified Time None Recorded Advance Directives Directive None Recorded Payers Insurance Date Sequence Insurance Name Policy Number Policy Hidalgo Covered Member ID Hidalgo Member ID Guarantor Name 04/16/2025 1 [facility] [id number] Vijay Scales [id number] Vijay Scales Notes Date Note Type Note Provider Name and Address Organization Details Recorded Time 02/22/2024 text/html Patient is a 63-year-old male seen in follow-up for bilateral thumb CMC arthritis. Injections last about 4 months. Here today for reinjection. Cathy Negrete MD [address] [facility], [place], [address], [facility] 02/22/2024 12:05:15 06/16/2024 text/html [...] follow-up as needed. Umer Camarillo PA-C [address], [place], [address], [facility] 06/16/2024 09:06:05 07/20/2024 text/html Patient is a 63-year-old male seen in follow-up for bilateral thumb CMC arthritis. Injections last about 4 months. Here today for reinjection. Cathy Negrete MD [address], [place], [address], [facility] 07/20/2024 13:42:29 09/10/2024 text/html I am [...] follow-up as needed. Umer Camarillo PA-C [address], [place], [address], [facility] 09/10/2024 16:40:48 12/28/2024 text/html Patient is a 64-year-old male seen in follow-up for bilateral thumb CMC arthritis. Injections last about 4-5 months. Here today for reinjection. Cathy Negrete MD [address], [place], [address], [facility] 12/28/2024 13:17:29
--- OUTSIDE RECORDS SUMMARY | 2025-04-20 11:10 | XMS_ITS | Patient Health Record ---
Author Organization [facility] Address [address] [place] [address] Care Team Providers Care Shank Taper Name Role Phone Arsenio MATTHEWS, Deja Cabrera Primary Care Provider Un available Sid Heriberto Unavailable [phone] Allergies Allergen (clinical drug ingredient) Drug/Non Drug [...] X ray : Foot, right 3V 08/01/2020 17284, [id number]/INJECT, JOINT/BURSA 1 10/12/2019 Insurance Providers Payer Name Payer Address Payer Phone Subscriber Number Group Number Insured Name Patient Relationship to Insured Coverage Start Date Coverage End Date [facility] [id number] [address] [address] [place] [address] [id number] Vijay Kirk i Self - patient is the insured Medical (General) History Medical History History ICD Code Anxiety High blood pressure Surgical History Surgery Date(Month/Year) neck surgery back surgery appendectomy 81 elbow sx, bilateral
[2025-04-20 13:28] LABS: MANUAL DIFF FLAG NO
[2025-04-20 13:30] LABS: Hematocrit 40.5 % (42.0-52.0); Hemoglobin 14.4 g/dl (14.0-18.0); Imm Gran Abs Auto 0.01 X10*3/uL (0.00-0.03); Imm Gran Pct Auto 0.2 % (0.0-0.4); Lymphocytes Absolute Auto 1.4 X10*3/uL (1.2-4.9); Mean Corpuscular HGB Conc 35.6 g/dl (31.0-36.0); Mean Corpuscular Hemoglobin 30.3 pg (27.0-33.0); Mean Corpuscular Volume 85.1 fL (80.0-98.0); NRBC Abs Auto 0.000 X10*3/uL (0.0-0.012); NRBC Pct Auto 0.0 /100WBC (0.0-0.2); Platelet Count 210 X10*3/uL (160-400); Red Blood Count 4.76 X10*6/uL (4.60-5.80); White Blood Count 5.4 X10*3/uL (4.8-10.8)
[2025-04-20 13:50] LABS: Alanine Aminotransferase 24 U/L (0-40); Anion Gap 11 (12-20); Aspartate Amino Transferase 19 U/L (5-37); Blood Urea Nitrogen 15 mg/dL (9-16); Calcium 8.9 mg/dL (8.4-10.2); Carbon Dioxide 25 mmol/L (22-29); Chloride 109 mmol/L (96-108); Cholesterol 253 mg/dL (<200); Estimated Glomerular Filt Rate > 60; HDL Cholesterol 62 mg/dL (>40); Potassium 4.0 mmol/L (3.3-5.1); Sodium 141 mmol/L (135-145); Triglycerides 251 mg/dL (<150)
== END 2025-04-20 11:08 | disposition home or self-care (01) ==
LOC: HO.HMGCLDS 11:07
PROVIDERS: PCP Internal Medicine; Visit Provider Internal Medicine
DX: I10 Essential (primary) hypertension (principal); E78.2 Mixed hyperlipidemia; E55.9 Vitamin D deficiency, unspecified; R73.01 Impaired fasting glucose
CPT/HCPCS: 36415; 80048; 80061; 82306; 84450; 84460; 85025

== ENCOUNTER 2025-04-24 14:52 | Outpatient (AMB) | payer OTHER, SELFPAY ==
--- NOTE | 2025-04-24 14:59 | A.OFFVIS_ITS ---
Vital Signs 04/24/25 15:01 Height 6 ft 1 in Weight 200 lb BMI 26.4 BP 137/95 H Blood Pressure Location Lt brachial Position Sitting Respiration 18 Pulse 97 Pulse Source Pulse Oximeter Pulse Oximetry (%) 97 Oxygen Delivery Method Room Air Intake Visit Reasons: S/P (L) Diagnostic L2-L3-L4-DR L5 MBB 04/19/25 Allergies codeine (CODEINE) Allergy (Intermediate, Verified 04/24/25 14:59) FACIAL SWELLING, RASH [id number] Reductase Inhibitor Adverse Reaction (Intermediate, Verified 04/24/25 14:59) Joint Pain HPI Comments Details: Vijay is back in my office after diagnostic medial branch L2, L3, L4, dorsal ramus L5 on the left. He reports only about 1 hour of pain improvement after the procedure. He reports that his pain radiates to the left lower extremity all the way to the lower left burgos and ankle and not below that level. He has chronic L3 -L4 foraminal stenosis and L4-5 left foraminal stenosis suggestive of nerve root compressions at this site. I offered the patient transforaminal epidural steroid injection unilateral left L3-L4 and L4-5. If this procedure will be helpful for the patient's pain we can repeat those interventions once in 3 to 4 months or longer if needed. He was offered surgery on L3-L4 by Dr. Crocker, however he is not very eager to go for the surgery. In the past 3 years he was in [place] where he received laminotomy foraminotomy and partial resection of the facet joint material in the treatment of central canal and foraminal stenosis. He reported that the surgery helped his pain for some time however now he complains on pain in the lower back with pain radiation down the left lower extremity all the way to his ankle but not below that level. He denies radiation of the pain into the foot or toes. Physical exam see as below. In the past this patient was under my care with cervicalgia facet degeneration in the cervical spine, he received radiofrequency ablation medial branches for the cervical joints bilateral C4-C5 C6. He still 3 years later does not report any cervicalgia or cervical pain. There is an MRI available in his chart from [facility] which demonstrates significant L3-L4 and L4-5 laminotomy bilateral and foraminotomy bilateral. It is still reports L3 nerve root compression on the left with significant disc degeneration and disc protrusion this level as well as postsurgical changes. There is Modic type changes at L3, L4, L5 vertebras. He reports sometimes difficulty with prolonged sitting. Prior: In 2021 he complained on new pain in the right anterior thigh knee and anterior sheen with insects crawling sensation in that area and pain reaching level of the top of the foot. We treated him for cervicalgia secondary to disc degeneration cervical spine about 1 year ago. We performed multiple injections and eventually referred him to a neuro surgery. He had successful 2 level fusion in his cervical spine and now he reports that his neck is not bothering him at all. He reported a new pain which that started few months ago after he visited chiropractor. Chiropractor performed some sort of a com pression maneuver on his spine and since then he suffers from this pain described above. He tried NSAIDs to treat his pain. His primary care doctor prescribe him opioids and gabapentin to treat his pain. He reports that with opioids he cannot go to work he is still working for the [employer]. He reports that he is taking gabapentin however gabapentin does not help him [facility] Medical History Generalized anxiety disorder Impaired fasting glucose Right knee pain Complex tear of medial meniscus of knee Mixed dyslipidemia Essential hypertension Spondylosis of cervical spine Cervicalgia Surgical History H/O elbow surgery History of appendectomy H/O cervical spine surgery Hx of colonoscopy Family History Father Myocardial infarction HTN (hypertension) Mental health disorder Substance use disorder Mother Myocardial infarction Multiple sclerosis Brother Substance use disorder Sister Substance use disorder Social History Housing: House Alcohol intake: current Alcohol intake frequency: a few times a month Patient Tobacco Use Status: Never used Tobacco e-Cigarette/Vaping Use: Never Used service: No Current occupational status: employed Cognitive needs: No Hearing needs: No Vision needs: No Review of Systems Const All systems reviewed & are unremarkable except as noted in HPI and below ENT Reports Normal hearing present Neuro Reports Normal hearing present, Denies Abnormal speech present, Denies confusion and Denies Sensory deficit (Neuro) Psych Denies confusion Physical Exam Vital Signs: Last Vital Signs Pulse 97 04/24/25 15:01 Resp 18 04/24/25 15:01 BP 137/95 H 04/24/25 15:01 Pulse Ox 97 04/24/25 15:01 Oxygen Delivery Method Room Air 04/24/25 15:01 BMI result Body Mass Index 26.4 Const General: no acute distress; No confusion Orientation/consciousness: patient oriented x3 and No confusion Eyes General: appearance normal, both eyes and all related structures Pupils: Equal, round and reactive pupils present EOM: EOMs intact bilaterally Neck Neck: Yes full ROM Chest Chest palpation & inspection: normal inspection of the chest Resp Effort & Inspection: normal respiratory effort, able to speak in complete sentences, normal respiratory pattern, no audible wheezes and no cough Cardio Jugular venous distension: no JVD GI Inspection: Yes normal to inspection Back/Spine/Pelvis Other: Vijay is able to stand on bilateral tiptoes and bilateral heels demonstrating normal strength of bilateral lower extremities. He denies any numbness in bilateral lower extremities. Flexing forward does not change his pain. Flexing backwards aggravate his pain moderately. Loading test is positive on the left. Negative Kamron test negative Gaenslen test bilaterally. SLR is maybe equivocal on the left. Lasegue test is negative bilaterally. Coughing or sneezing Valsalva maneuver does not aggravate his pain. Neuro General: patient oriented x3, gait normal and No confusion Cranial nerves: Yes CN's II-XII intact bilaterally, Yes Equal, round and reactive pupils present, Yes Normal hearing present and Yes Ability to bilaterally elevate shoulders present Speech: No Abnormal speech present Gait exam (Neuro): Normal gait present Motor exam (neuro): 5/5 motor strength present throughout Sensory Exam: No Sensory deficit (Neuro) Extrem General: No pedal edema Psych Speech and movement: Normal speech and movement present Affect: normal affect Attitude: cooperative Thought process: Normal thought process present Thought content: Normal thought content present Insight: Good insight present (Psych) Judgement: Good judgement present (Psych) Results Reviewed Results Reviewed: MRI lumbar spine [place] 03/17/2025. Alignment vertebra marrow and discs: Grade 1 anterolisthesis of L3 on L4 has increased since prior. Otherwise alignment is maintained. Vertebral body heights are maintained. There are Modic type 1 signal changes at L3-L4 which have increased in extent compared to the previous exam and there also now moderate type 1 signal changes at L4-5 to the right of the midline at L5-S1 to the right of the midline. Diffuse endplate osteophytes. Multilevel facet arthropathy. Conus: The conus is normal in signal and contour with normal level of termination at L1. Paraspinal tissues: There is atrophy of the posterior paraspinal musculature. Areas of increased fluid signal most prominent posterior to the L4 through S1 levels left greater than right probably postsurgical changes. By level: L1-L2: Facet arthropathy no significant canal stenosis or neural foraminal narrowing L2-L3: There is right laminotomy defect partial facet resection on the right. Disc osteophyte complex and facet spurring again demonstrated with mild spinal canal narrowing and mild bilateral neural foraminal narrowing similar to prior. L3-L4 there are bilateral laminectomy defects. Postsurgical changes from partial facetectomy. Marginal osteophytes. No significant canal stenosis. Mild left and moderate right neural foraminal narrowing increased from prior on the right and unchanged in the left. There is again severe left and mild right neural foraminal narrowing with compression of the exiting left L3 nerve root similar to prior. L4-5: Bilateral laminotomy defect. Surgical changes from partial facetectomy. Disc osteophyte complex. No significant canal stenosis. Mild left and moderate right neural foraminal narrowing, increased from prior on the right and unchanged in the left. L5-S1 bilateral laminotomy defects. Marginal osteophytes and facet spurring. No significant there is again mild left and moderate right neural foraminal narrowing similar to prior. Impression: Postsurgical and degenerative changes of the lumbar spine as detailed above. Moderate right neural foraminal narrowing at L4-5 has increased. The findings are otherwise similar to previous exams. Again severe left neural foraminal narrowing L3-L4 and exiting L3 nerve root on the left compression which is similar to prior. Assessment & Plan Assessment & Plan (1) Vertebrogenic low back pain: Code(s): M54.51 - Vertebrogenic low back pain Category: Medical (2) Spondylosis of lumbar region without myelopathy or radiculopathy: Code(s): M47.816 - Spondylosis without myelopathy or radiculopathy, lumbar region Category: Medical (3) Facet arthropathy, lumbar: Code(s): M47.816 - Spondylosis without myelopathy or radiculopathy, lumbar region Category: Medical (4) Chronic pain syndrome: Code(s): G89.4 - Chronic pain syndrome Category: Medical (5) Postlaminectomy syndrome of lumbar region: Code(s): M96.1 - Postlaminectomy syndrome, not elsewhere classified Category: Medical Plan The MRI of this patient is quite impressive and yet it is partially concordant with physical exam only. He went for diagnostic medial branch block L2, L3, dorsal ramus L5 with nonconclusive results. On exam today SLR maybe equivocal on the left I offered him left-sided L3-L4, L4-5 transforaminal epidural steroid injection. If this will help his pain condition I do not mind to continue his treatment with intermittent once at 3 -4 months epidural steroid injection. He was offered a surgery on this level however he is not very eager to proceed with the surgical intervention. At the same time I may also consider vertebra genic pain syndrome since he has widespread Modic type changes in his lumbar spine if the epidural steroid injection will not be helpful for his condition I would like to schedule him for intercept procedure before I refer him back to neurosurgical office. I will schedule the follow-up after epidural steroid injection for this patient 1 week after the procedure. Patient Instructions: I here by testify that I spent 30 minutes in conversation with this patient as well as evaluating his prior records again, re-evaluating his diagnostic images and diagnostic reports as well as planning his care and organizing this note. Coding Level of Care Code Est Pt Level 4 (22502) Diagnoses Vertebrogenic low back pain M54.51 Spondylosis of lumbar region without myelopathy or radiculopathy M47.816 Facet arthropathy, lumbar M47.816 Chronic pain syndrome G89.4 Postlaminectomy syndrome of lumbar region M96.1
[2025-04-24 15:01] VITALS: BP 137/95; PULSE 97; RESP 18; O2SAT 97; BMI 26.4
--- OUTSIDE RECORDS SUMMARY | 2025-04-24 15:30 | XMS_ITS | Patient Health Record ---
[facility] Organization [facility] Address [address] [place] [address] Care Team Providers Care Care Transitions Manager Name Role Phone Arsenio MATTHEWS, Deja Cabrera Primary Care Provider Un available Sid Heriberto Unavailable [phone] Allergies Allergen (clinical drug ingredient) Drug/Non Drug [...] X ray : Foot, right 3V 08/01/2020 [id number], [id number]/INJECT, JOINT/BURSA 1 10/12/2019 Insurance Providers Payer Name Payer Address Payer Phone Subscriber Number Group Number Insured Name Patient Relationship to Insured Coverage Start Date Coverage End Date [facility] [id number] [address] [address] [place] [address] [id number] Vijay Kirk i Self - patient is the insured Medical (General) History Medical History History ICD Code Anxiety High blood pressure Surgical History Surgery Date(Month/Year) neck surgery back surgery appendectomy 81 elbow sx, bilateral
--- OUTSIDE RECORDS SUMMARY | 2025-04-24 15:30 | XMS_ITS | Data Portability ---
Author Organization GARETH Payam Nesb[facility] Address [address] [place] [address] Care Team Providers Care Dental Insurance Coordinator Name Role Phone KYLAH DUNNE Primary [...] table t 2023 [facility] [employer], [address] [place] [address], [address], 07/20/2024 13:42:44 melox icam 15 mg table [...] Impingeme nt syndrome of right shoulder region [id number] 102 Active 2016 Problem Code: M75.41; Problem Code Type: ICD-10; Status: 'A'; Not Available [facility] 4 11:58:54 Problem Notes None recorded. Procedures Surgical History Date Name Laterality Status Provider Name and Address Organization Details Recorded Time 5 JZCMC Inj completed Cathy Negrete MD [address], [place], [address], [facility] 12/28/2024 13:16:41 4 Hip Kenalog 1cc Injection, Bilateral completed Umer Camarillo PA-C [address], [place], [address], [facility] 09/10/2024 13:50:15 4 JZCMC Inj completed Cathy Negrete MD [address], [place], [address], [facility] 07/20/2024 13:41:35 4 Hip Kenalog 1cc Injection, Bilateral completed Umer Camarillo PA-C [address], [place], [address], [facility] 06/16/2024 09:05:28 4 Wrist Joint Kenalog Injection, Bilateral completed Cathy Negrete MD [address], [place], [address], [facility] 02/22/2024 12:04:30 Imaging Results None recorded. Procedure Notes None recorded. Medical Equipment None Reported. Allergies Allergen ID Allergen Name Allergen Category Reaction Reaction Severity Criticality Documentation Date Start Date Code Code System Note Provider Name and Address Organization Details Recorded Time 50137 codeine medicatio n Not available Not available Not available 12/05/20232016 2670 RxNorm Not Available [facility] 14:47:37 Medications Name Sig Start Date [...] Updated DateTime 12/28/2024 185.42 cm 26.4 kg/m2 25182.47 g GALLO ALAS [facility] 12/28/2024 13:10:38 Date Recorded Body height Provider Name an d Address Organization Details Last Updated DateTime 02/22/2024 182.88 cm CAROL BARRETT [facility] 02/22/2024 11:46:12 Date Recorded Body height Body mass index (BMI) Body weight Provider Name and Address Organization Details Last Updated DateTime 06/16/2024 185.42 cm 26.4 kg/m2 41098.47 g CATIE CASPER [facility] 06/16/2024 08:11:27 Date Recorded Body height Body mass index (BMI) Body weight Provider Name and Address Organization Details Last Updated DateTime 07/20/2024 185.42 cm 26.4 kg/m2 48480.47 g GALLO ALAS [facility] 07/20/2024 13:33:30 Date Recorded Body height Provider Name an d Address Organization Details Last Updated DateTime 09/10/2024 185.42 cm ADAM CHRISTIANSENMAURAJOSE [facility] 09/10/2024 14:21:30 Social History None recorded. Functional Status None recorded. Mental Status None recorded. Family History Nothing Reported. Medical History No medical history recorded. Past Encounters Encounter ID Performer Location Encounter Start Date Encounter Closed Date Diagnosis/Indication Diagnosis SNOMED-CT Code Diagnosis ICD10 Code Diagnosis Note [id number] MD Luis F Tim [address] [place] [address] [address] [place] [address] 02/22/2024 11:25:32 03/15/2024 19:50:11 Osteoarthrosis of the carpometacarpal joint of the thumb 87036907 M18.9 [id number] IWONA Varela [address] [place] [address] [address] [place] [address] 06/16/2024 08:00:35 06/16/2024 09:06:29 Osteoarthritis of right knee joint 0526486240 22012 M17.11 Trochanter ic bursitis of right hip 6997058152 88031 M70.61 Trochanter ic bursitis of left hip 0629447595 03971 M70.62 [id number] MD Luis F Tim [address] [place] [address] 07/20/2024 13:26:34 08/08/2024 11:59:46 Osteoarthrosis of the carpometacarpal joint of the thumb 79592616 M18.9 [id number] IWONA Varela [address] [place] [address] 09/10/2024 14:16:39 10/08/2024 08:58:12 Trochanteric bursitis of right hip 4359099500 30409 M70.61 Trochanter ic bursitis of left hip 7908175254 30560 M70.62 [id number] MD MAR Tim [address] [place] [address] 12/28/2024 12:55:59 01/10/2025 09:43:37 Osteoarthrosis of the carpometacarpal joint of the thumb 87717472 M18.9 Health Concerns Section Related Observation LastModified by Organization Detai ls LastModified Time None Recorded Concern Status LastModified by Organization Details LastModified Time None Recorded Advance Directives Directive None Recorded Payers Insurance Date Sequence Insurance Name Policy Number Policy Hidalgo Covered Member ID Hidalgo Member ID Guarantor Name 04/16/2025 1 [facility] [id number] Vijay Scales [id number] Vijay Scales Notes Date Note Type Note Provider Name and Address Organization Details Recorded Time 02/22/2024 text/html Patient is a 63-year-old male seen in follow-up for bilateral thumb CMC arthritis. Injections last about 4 months. Here today for reinjection. Cathy Negrete MD [address] [facility], [place], [address], [facility] 02/22/2024 12:05:15 06/16/2024 text/html [...] follow-up as needed. Umer Camarillo PA-C [address], [place], [address], [facility] 06/16/2024 09:06:05 07/20/2024 text/html Patient is a 63-year-old male seen in follow-up for bilateral thumb CMC arthritis. Injections last about 4 months. Here today for reinjection. Cathy Negrete MD [address], [place], [address], [facility] 07/20/2024 13:42:29 09/10/2024 text/html I am seeing [...] follow-up as needed. Umer Camarillo PA-C [address], [place], [address], [facility] 09/10/2024 16:40:48 12/28/2024 text/html Patient is a 64-year-old male seen in follow-up for bilateral thumb CMC arthritis. Injections last about 4-5 months. Here today for reinjection. Cathy Negrete MD [address], [place], [address], [facility] 12/28/2024 13:17:29
--- OUTSIDE RECORDS SUMMARY | 2025-04-24 15:30 | XMS_ITS | Clinical Summary ---
Author Organization [facility] ity Address [address] [place] [address] Care Team Providers Care Energy Manager Name Role Phone Deep Vigil MD Primary [...] Panel) 09/01/2022 Colorectal Cancer Screening: Colonoscopy 09/01/2022 HIV Screening 09/01/2022 Hepatitis C Screening 09/01/2022 Social Influencers of Health Screening 09/01/2022 COVID-19 Vaccine (1 - 2023-2 5 season) 2024 Depression Screening 10/03/2024 Influenza Vaccine (#1) 2025 RSV Immunization Adult [...] age to complete this topic Care Teams Energy Manager Relationship Specialty Start Date End Date Deep Vigil MD PCP - General 11/23/06
== END 2025-04-24 15:36 | disposition home or self-care (01) ==
LOC: HO.PMC 14:53
PROVIDERS: PCP Nurse Practitioner Primary Care; Visit Provider Anesthesiology
DX: M54.51 Vertebrogenic low back pain (principal); M47.816 Spondylosis without myelopathy or radiculopathy, lumbar region; G89.4 Chronic pain syndrome; M96.1 Postlaminectomy syndrome, not elsewhere classified
CPT/HCPCS: 99214

== ENCOUNTER 2025-04-25 11:44 | Outpatient (AMB) | payer OTHER, SELFPAY ==
--- NOTE | 2025-04-25 11:47 | A.OFFPC_ITS ---
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 Required: No Accompanied by: Self / Same As Patient Allergies codeine (CODEINE) Allergy (Intermediate, Verified 04/27/25 02:23) FACIAL SWELLING, RASH Dffixah-PGQ-EtI Reductase Inhibitor Adverse Reaction (Intermediate, Verified 04/27/25 02:23) Joint Pain Medication List - Last Reconciled 04/27/25 by Deja Cesar MD clonazepam 0.5 mg PO DAILY PRN diltiazem HCl ER 240 mg PO DAILY ezetimibe (Zetia) 10 mg PO DAILY lisinopril 10 mg PO QAM meloxicam 15 mg PO DAILY PRN paroxetine HCl ER 25 mg PO DAILY tamsulosin (Flomax) 0.8 mg (2 x 0.4 mg) PO BEDTIME 90 days Tobacco use date assessed: 04/25/25 Dental Screening Dental Screen Date: 10/01/24 Did you have a dental visit in the last 12 months?: Yes Did you have a dental problem in the last 6 months where you did not have access to dental care?: No Was dental information given to patient?: Patient has dentist HPI HPI Comments History of Present Illness Details 64-year-old male here today for his foll ow-up visit. He has mixed dyslipidemia currently taking ezetimibe 10 mg daily, but admits to not being compliant with diet and has not been able to exercise due to his chronic low back pain. Latest fasting lipids showed elevated triglycerides total cholesterol and LDL cholesterol levels as compared to last check. Has hypertension currently taking lisinopril 10 mg in the morning and diltiazem 240 mg once a day , with good blood pressure control. He sees Psychiatry for generalized anxiety disorder treatment, stable controlled on paroxetine HCL ER 25 mg daily and takes an occasional clonazepam as needed for acute anxiety attacks, which has been infrequent. He is currently followed by Dr. Uribe for chronic low back pain due to lumbar stenosis, [facility] Medical History Generalized anxiety disorder Impaired fasting glucose Right knee pain Complex tear of medial meniscus of knee Mixed dyslipidemia Essential hypertension Spondylosis of cervical spine Cervicalgia Surgical History H/O elbow surgery History of appendectomy H/O cervical spine surgery Hx of colonoscopy Family History Father Myocardial infarction HTN (hypertension) Mental health disorder Substance use disorder Mother Myocardial infarction Multiple sclerosis Brother Substance use disorder Sister Substance use disorder Social History Housing: House Alcohol intake: current Alcohol intake frequency: a few times a month Patient Tobacco Use Status: Never used Tobacco e-Cigarette/Vaping Use: Never Used service: No Current occupational status: employed Cognitive needs: No Hearing needs: No Vision needs: No Questionnaire PHQ-9 Over the last 2 weeks, how often have you been bothered by any of the following problems? 1. Little interest or pleasure in doing things: not at all 2. Feeling down, depressed, or hopeless: not at all 3. Trouble falling or staying asleep, or sleeping too much: not at all 4. Feeling tired or having little energy: several days 5. Poor appetite or overeating: not at all 6. Feeling bad about yourself - or that you are a failure or have let yourself or your family down: not at all 7. Trouble concentrating on things, such as reading the newspaper or watching television: not at all 8. Moving or speaking so slowly that other people could have noticed. Or the opposite - being so fidgety or restless that you have been moving around a lot more than usual: not at all 9. Thoughts that you would be better off or of hurting yourself in some way: not at all Total score: 1 Depression Screening Interpretation: Negative Depression Screening Done: Yes 52099 - PHQ-9 Billing: Yes Source: Developed by Drs. Cortez Schultz, Pat Hernandez, Kush William and colleagues, with an educational ulises from [employer]. Thrive Questionnaire Date Thrive assessed: 10/01/24 I am a: Patient What is your living situation today?: I have a steady place to live Within the past 12 months, did the food you bought not last and you didn't have the money to get more?: Never true Within the past 12 months, did you worry whether your food would run out before you got money to buy more?: Never true Do you have trouble paying for medicines?: No Do you have trouble getting transportation to medical appointments?: No Do you have trouble paying your heating and electricity bill?: No Do you have trouble taking care of your child, family member or friend?: No Do you have trouble with day-to-day activities such as bathing, preparing meals, shopping, managing finances, etc.?: No Are you currently unemployed and looking for a job?: No Are you interested in more education?: No Please select the resources that you would like help with: None Currently or been in a relationship where the following occur: I choose not to answer THRIVE Score: 0 SEE-7 AMB Questionnaire SEE-7 Date SEE - 7 assessed: 04/25/25 Feeling nervous, anxious, or on edge: 0 = Not at all Not being able to stop or control worryin = Not at all Worrying too much about different things: 0 = Not at all Trouble relaxin = Not at all Being so restless that it is hard to sit still: 0 = Not at all Becoming easily annoyed or irritable: 0 = Not at all Feeling afraid as if something awful might happen: 0 = Not at all Total SEE-7 score (0-4 normal; 5-9 mild; 10-14 moderate; 15-21 severe): 0 Source: Developed by Drs. Cortez Schultz, Pat Hernandez, Kush William and colleagues, with an educational ulises from [employer]. SEE-7 Assessment Billing SEE-7 Assessment Tool: SEE-7 Assessment 99865 Review of Systems Const All systems reviewed & are unremarkable except as noted in HPI and below Eyes Denies change in vision ENT Reports Normal hearing present Card Denies chest pain, Denies irregular heart rhythm, Denies lightheadedness and Denies dyspnea Resp Denies cough and Denies dyspnea GI Reports no additional complaints Reports no additional complaints Musc Reports as per HPI Neuro Reports Normal hearing present, Denies Abnormal speech present, Denies confusion and Denies Sensory deficit (Neuro) Psych Denies confusion Endo Reports no additional complaints Florian/Lymph Reports no additional complaints Aller/Immun Reports no additional complaints Physical exam (Primary Care) Vital Signs: Last Vital Signs Temp 97.7 F 04/25/25 11:50 Pulse 90 04/25/25 11:50 Resp 16 04/25/25 11:50 BP 117/75 04/25/25 12:26 Pulse Ox 99 04/25/25 11:50 Oxygen Delivery Method Room Air 04/25/25 11:50 Tobacco/Smoking Status: Tobacco use Status Tobacco use date assessed 04/25/25 04/25/25 11:55 Patient Tobacco Use Status Never used Tobacco 04/25/25 11:48 e-Cigarette/Vaping Use Never Used 04/25/25 11:48 PHQ-9: PHQ-9 Score PHQ-9: Total score 1 04/25/25 12:23 Depression Screening Interpretation: Negative Thrive Assessment: Date of Thrive Assessment Date Thrive assessed 10/01/24 04/25/25 11:48 Currently or been in a relationship where the following occur: I choose not to answer Const General: No confusion Orientation/consciousness: No confusion Limitations: no limitations HENMT Ears: external ears normal General nose exam: Normal external nose present Mouth: oropharynx normal and moist mucous membranes Eyes General: appearance normal, both eyes and all related structures Sclerae: sclerae normal Pupils: Equal, round and reactive pupils present EOM: EOMs intact bilaterally Neck Neck: Yes full ROM, Yes no lymphadenopathy and Yes supple Resp Effort & Inspection: normal respiratory effort and able to speak in complete sentences Auscultation: clear to auscultation bilaterally Cardio Rate: regular rate Rhythm: regular rhythm Heart sounds: S1 normal heart sound present and S2 normal heart sound present GI Palpation (GI): Soft to palpation, nontender and no masses Auscultation: normal bowel sounds Skin General skin exam: no rashes or lesions noted Neuro General: No confusion Cranial nerves: Yes Equal, round and reactive pupils present and Yes Normal hearing present Cognition (Neuro): normal cognition Speech: No Abnormal speech present Sensory Exam: No Sensory deficit (Neuro) Extrem General: Yes full ROM, Yes no joint enlargement, Yes no clubbing, cyanosis or edema and Yes no calf tenderness Psych Appearance: grossly normal and well kempt Mental Status: mental status grossly normal Speech and movement: Normal speech and movement present Affect: normal affect Results Reviewed Results Reviewed: Name: Vijay Scales Age/Sex: 64/M : 1960 Unit#: [id number] Attend Dr: Deja Cesar MD Re04/20/25 Status: DEP REF Location: [facility] Disch: SPEC : [id number] JERRICA: 04/20/25 STATUS: COMP REQ : [id number] RECD: 04/20/[address]: Deja Cesar MD COMP: 04/20/25 ENTERED: 04/20/[address] [facility] [address]: ORDERED: CBC Auto Diff Test Result Flag Reference WBC 5.4 4.8-10.8 X10*3/uL RBC 4.76 4.60-5.80 X10*6/uL HGB 14.4 14.0-18.0 g/dl HCT 40.5 L 42.0-52.0 % MCV 85.1 80.0-98.0 fL MCH 30.3 27.0-33.0 pg MCHC 35.6 31.0-36.0 g/dl RDW 12.6 11.0-16.0 % PLT 210 160-400 X10*3/uL MPV 9.3 L 9.4-12.4 fL Neut Pct Auto 61.3 45-73 % ImGran Pct Auto 0.2 0.0-0.4 % Lymp Pct Auto 26.0 20-40 % Cavalier Pct Auto 7.5 2-11 % Eos Pct Auto 4.1 H 0-4 % Baso Pct Auto 0.9 0-2 % NRBC Pct Auto 0.0 0.0-0.2 /100WBC ANC Neut Abs # 3.3 2.0-8.3 x10*3/uL ImGran Abs Auto 0.01 0.00-0.03 X10*3/uL Lymph Abs Auto 1.4 1.2-4.9 X10*3/uL Cavalier Abs Auto 0.4 0.1-1.2 X10*3/uL Eos Abs Auto 0.2 0.0-0.4 X10*3/uL Baso Abs Auto 0.1 0.0-0.2 X10*3/uL NRBC Abs Auto 0.000 0.0-0.012 X10*3/uL Name: Vijay Scales Age/Sex: 64/M : 1960 Unit#: [id number] Attend Dr: Deja Cesar MD Re04/20/25 Status: DEP [facility] Disch: SPEC : [id number] JERRICA: 04/20/25-1110 STATUS: COMP REQ : [id number] RECD: 04/20/25-[address]: Deja Cesar MD COMP: 04/20/25-1406 ENTERED: 04/20/25-1110 [facility] [address]: ORDERED: Met Prof Fast, AST, ALT, Lipid Panel, Vitamin D 25-OH Test Result Flag Reference Sodium 141 135-145 mmol/L Potassium 4.0 3.3-5.1 mmol/L CL 109 H 96-108 mmol/L CO2 25 22-29 mmol/L Gap 11 L 12-20 BUN 15 9-16 mg/dL Creat 0.85 0.5-1.4 mg/dL eGFR > 60 Chronic Kidney Disease: Estimated GFR < 60 mL/min/1.73m2 Severe Kidney Disease: Estimated GFR < 15 mL/min/1.73m2 FBS 109 H 60-99 mg/dL A fasting glucose from 100-125 mg/dl is considered impaired (pre-diabetes). CA 8.9 8.4-10.2 mg/dL AST (GOT) 19 5-37 U/L ALT (GPT) 24 0-40 U/L Triglyceride 251 H <150 mg/dL Desirable Triglyceride: less than 150 mg/dL Borderline High Triglyceride 150-199 mg/dL High Triglyceride: 200-499 mg/dL Very High Triglyceride: greater than or equal to 5OO mg/dL Cholesterol 253 H <200 mg/dL Desirable Cholesterol: less than 200 mg/dL Borderline High Cholesterol: 200-239 mg/dL High Cholesterol: greater than 239 mg/dL LDL Calculated 141 H <100 mg/dL Desirable LDL: less than 100 mg/dL Near Optimal/Above Optimal LDL: 110-129 mg/dL Borderline High LDL: 130-159 mg/dL High LDL: 160-189 mg/dL Very High LDL: greater than or equal to 190 mg/dL HDL 62 >40 mg/dL Desirable HDL: greater than 40 mg/dL Note: This HDL assay may give artificially low results in patients with liver disease. Vitamin D 25-OH 28.2 L >30 ng/mL Health Based Reference Values* < 20 ng/mL Deficient 20-30 ng/mL Insufficient > 30 ng/mL Sufficient Coding Level of Care Code Est Pt Level 4 (99374) Diagnoses Essential hypertension I10 Mixed dyslipidemia E78.2 Impaired fasting glucose R73.01 Vitamin D deficiency E55.9 Vertebrogenic low back pain M54.51 Additional Codes SEE-7 Assessment Billing - SEE-7 Assessment Tool: SEE-7 Assessment 22764 ([id number]) PHQ-9 - 40681 - PHQ-9 Billing: Yes ([id number]) Assessment & Plan Assessment & Plan (1) Essential hypertension: Code(s): I10 - Essential (primary) hypertension Category: Medical Plan: Blood pressure at goal of less than 130/80. Continue with current medication. Reinforced importance of following a low sodium diet, getting regular exercise, and lowering stress levels. (2) Mixed dyslipidemia: Comment: Patient will try to improve diet and exercise. Will also start to utilize more consumption of healthy fish Code(s): E78.2 - Mixed hyperlipidemia Category: Medical Plan: Reviewed recent fasting lipid profile with patient with elevated triglycerides and LDL cholesterol . Continue ezetimibe 10 mg daily , in addition to adherence to low-cholesterol diet and regular exercise, at least 30 minutes 3 to 4 times a week. Advised patient to make healthy food choices, eat more fruits, vegetables, whole grains, wild caught fish and low-fat dairy. Limit amount of meat and fried or fatty food products, as well as processed foods and fast foods. Follow-up scheduled with repeat fasting lipid panel in 3 months. (3) Impaired fasting glucose: Code(s): R73.01 - Impaired fasting glucose Category: Medical Plan: Your previous fasting blood sugars were elevated above 100 mg/dL. Impaired glucose metabolism increases the risk for developing diabetes mellitus type 2, as well as heart attack and stroke later on. Lifestyle changes that promotes weight loss, healthy eating habits, and regular exercise are important, and can prevent the progression to diabetes (4) Vitamin D deficiency: Comment: Patient will start 2000 units vitamin D3 daily and redrawn 3 months. Code(s): E55.9 - Vitamin D deficiency, unspecified Category: Medical Plan: Start taking kjuv-lls-wukbtug vitamin D3 at 2000 units daily (5) Vertebrogenic low back pain: Code(s): M54.51 - Vertebrogenic low back pain Category: Medical Plan: Followed by Dr. Uribe, prescription refill sent for meloxicam 15 mg 1 tablet daily as needed for pain Orders: Orders Aspartate Amino Transferase 3 Months E55.9 - Vitamin D deficiency, unspecified, E78.2 - Mixed hyperlipidemia, I10 - Essential (primary) hypertension, R73.01 - Impaired fasting glucose Vitamin D 25-OH Total 3 Months E55.9 - Vitamin D deficiency, unspecified, E78.2 - Mixed hyperlipidemia, I10 - Essential (primary) hypertension, R73.01 - Impaired fasting glucose Hemoglobin A1c 3 Months E55.9 - Vitamin D deficiency, unspecified, E78.2 - Mixed hyperlipidemia, I10 - Essential (primary) hypertension, R73.01 - Impaired fasting glucose Basic Metabolic Panel Fasting 3 Months E55.9 - Vitamin D deficiency, unspecified, E78.2 - Mixed hyperlipidemia, I10 - Essential (primary) hypertension, R73.01 - Impaired fasting glucose Lipid Panel 3 Months E55.9 - Vitamin D deficiency, unspecified, E78.2 - Mixed hyperlipidemia, I10 - Essential (primary) hypertension, R73.01 - Impaired fast ing glucose Alanine Aminotransferase 3 Months E55.9 - Vitamin D deficiency, unspecified, E78.2 - Mixed hyperlipidemia, I10 - Essential (primary) hypertension, R73.01 - Impaired fasting glucose Medications: Changed From meloxicam 15 mg PO DAILY To meloxicam 15 mg PO DAILY PRN 30 tabs 3RF Joint pain Refilled diltiazem HCl ER 240 mg PO DAILY 90 caps 4RF ezetimibe (Zetia) 10 mg PO DAILY 90 tabs 4RF paroxetine HCl ER 25 mg PO DAILY 90 tabs 4RF lisinopril 10 mg PO QAM 90 tabs 3RF
[2025-04-25 11:50] VITALS: BP 117/70; PULSE 90; RESP 16; TEMP 36.5; O2SAT 99
[2025-04-25 12:26] VITALS: BP 117/75
--- OUTSIDE RECORDS SUMMARY | 2025-04-25 12:35 | XMS_ITS | Clinical Summary ---
Author Organization [facility] ity Address [address] [place] [address] Care Team Providers Care Junior Financial Analyst Name Role Phone Deep Vigil MD Primary [...] age to complete this topic Care Teams Junior Financial Analyst Relationship Specialty Start Date End Date Deep Vigil MD PCP - General 11/23/06
--- OUTSIDE RECORDS SUMMARY | 2025-04-25 12:35 | XMS_ITS | Patient Health Record ---
Author [facility] Address [address] [place] [address] Care Team Providers Care Hemming And Tacking Machine Operator Name Role Phone Arsenio MATTHEWS, Deja Cabrera Primary Care Provider Un available Sid Heriberto Unavailable [phone] Allergies Allergen (clinical drug ingredient) Drug/Non Drug [...] X ray : Foot, right 3V 08/01/2020 27408, [id number]/[id number], JOINT/BURSA 1 10/12/2019 Insurance Providers Payer Name Payer Address Payer Phone Subscriber Number Group Number Insured Name Patient Relationship to Insured Coverage Start Date Coverage End Date [facility] re-[id number] [address] [address] [place] [address] [id number] Vijay Kirk i Self - patient is the insured Medical (General) History Medical History History ICD Code Anxiety High blood pressure Surgical History Surgery Date(Month/Year) neck surgery back surgery appendectomy 81 elbow sx, bilateral
== END 2025-04-25 12:32 | disposition home or self-care (01) ==
LOC: HO.HMCC 11:45
PROVIDERS: PCP Internal Medicine; Visit Provider Internal Medicine
DX: I10 Essential (primary) hypertension (principal); E78.2 Mixed hyperlipidemia; R73.01 Impaired fasting glucose; E55.9 Vitamin D deficiency, unspecified; M54.51 Vertebrogenic low back pain

== ENCOUNTER → 2025-04-25 11:44 | Outpatient (BNVA) | payer OTHER, SELFPAY | PROVIDERS: PCP Internal Medicine; Visit Provider Internal Medicine | DX: I10 Essential (primary) hypertension (principal); E78.2 Mixed hyperlipidemia; R73.01 Impaired fasting glucose; E55.9 Vitamin D deficiency, unspecified; M54.51 Vertebrogenic low back pain; Z79.899 Other long term (current) drug therapy; Z13.31 Encounter for screening for depression; Z13.39 Encounter for screening examination for other mental health and behavioral disorders | CPT/HCPCS: 96127 ==

== ENCOUNTER 2025-05-06 14:47 | Outpatient (AMB) | payer OTHER, SELFPAY ==
--- OUTSIDE RECORDS SUMMARY | 2025-05-06 14:50 | XMS_ITS | Continuity of Care Document ---
Author Organization [facility]. If a dditional information is needed, contact Health Information Management at [phone] Address [address] [place] [address] Phone Care Team Providers Care Talent Recruiter Name Role Phone Unavailable Unavailable Unavailable Unavailable Unavailable Unavailable Unavailable Unavailable Unavailable Unavailable Unavailable Unavailable Problems Restlessness and agitation Onset:20-Dec-2023 Isac Lincoln MD Psychoactive substance abuse Onset:20-Dec-2023 Isac Lincoln MD Adverse reaction to benzodia zepine Onset:20-Dec-2023 Isac Lincoln MD Urinary tract infectious dis ease Onset:21-Nov-2022 Ed Aguilar APRN Allergies and Adverse Reactions Codeine(Allergy) Onset: 21-Nov-2022 Reaction:hives Social History Smoking Status Never smoked tobacco Recorded: 20-Dec-2023 Never smoked tobacco Recorded: 21-Nov-2022
--- OUTSIDE RECORDS SUMMARY | 2025-05-06 14:52 | XMS_ITS | Patient Health Record ---
[facility] Address [address] [place] [address] Care Team Providers Care Chief Information Security Officer Name Role Phone Arsenio MATTHEWS, Deja Cabrera Primary Care Provider Un available Sid Heriberto Unavailable [phone] Allergies Allergen (clinical drug ingredient) Drug/Non Drug [...] X ray : Foot, right 3V 08/01/2020 37002, [id number]/INJECT, JOINT/BURSA 1 10/12/2019 Insurance Providers Payer Name Payer Address Payer Phone Subscriber Number Group Number Insured Name Patient Relationship to Insured Coverage Start Date Coverage End Date [facility] re-[id number] [address] [address] [place] [address] [phone] [id number] Vijay Kirk i Self - patient is the insured Medical (General) History Medical History History ICD Code Anxiety High blood pressure Surgical History Surgery Date(Month/Year) neck surgery back surgery appendectomy 81 elbow sx, bilateral
--- OUTSIDE RECORDS SUMMARY | 2025-05-06 14:52 | XMS_ITS | Clinical Summary ---
Author Organization [facility] ity Address [address] [place] [address] Care Team Providers Care Service Writer Advisor Name Role Phone Deep Vigil MD Primary [...] age to complete this topic Care Teams Service Writer Advisor Relationship Specialty Start Date End Date Deep Vigil MD PCP - General 11/23/06
--- NOTE | 2025-05-06 14:57 | A.SPINEOV_ITS ---
Intake Visit Reasons: follow up Intake Note: Mr. Scales is here today to follow up after exhausting conservative measures. Director Of Education Required: No Allergies codeine (CODEINE) Allergy (Intermediate, Verified 04/27/25 02:23) FACIAL SWELLING, RASH Jhzrlri-XBA-FvA Reductase Inhibitor Adverse Reaction (Intermediate, Verified 04/27/25 02:23) Joint Pain Assessment & Plan Assessment & Plan (1) Lumbago: Code(s): M54.50 - Low back pain, unspecified Category: Medical Plan Vijay is a 64-year-old male who comes in today for subsequent evaluation. He made the follow up appointment for today of his own volition after having a series of ablations performed by pain management here at [facility]. He reports no pain relief from diagnostic medial branch L2, L3, L4, dorsal ramus L5 on the left performed by Dr. Uribe. He states that he wishes to proceed with lumbar fusion, and asked that we schedule him for surgery, and complete his disability paperwork for the [employer] he works for, and wanted the disability paperwork back dated to March so he can be paid disability from March through June when he expects to have Lumbar fusion by our service. I informed him that we can not do this, but would be able to complete his disability paperwork for the immediate postoperative period if needed, assuming Dr. Crocker is still willing to offer the patient a L3-4 Transkambin lumbar fusion, as he did about 1.5 years ago. He was fairly upset by this, and reports that ?nobody will help him. He apparently already asked his primary care physician and Dr. Uribe to do this for him, and they both refused to do so. He then again wished to extensively discussed the L3-4 transkambin lumbar fusion. I once again explained the procedure in great detail to him, utilizing the spine models in office, and showing him our surgical hardware which we have examples of in the office. He asked a plethora of questions regarding the procedure, all of which I answered to the best of my ability. He wished to review his MRI which we also did during this visit. I informed him that since he was offered Lumbar fusion (which he did not show up for last year) he has had surgery by another physician, has had injections completed by Dr. Uribe, and has had a new MRI completed in March of this year. Therefore, I cannot book him for surgery today despite his requests for me to do so. I will need to review all of this with Dr. Crocker and ensure that he is still comfortable offering this patient lumbar fusion. I will update the patient after discussion with him. Enrico Crocker MD,PhD [facility] Coding Level of Care Code Est Pt Level 3 (80799) Diagnoses Lumbago M54.50
== END 2025-05-06 15:28 | disposition home or self-care (01) ==
LOC: HO.HNS 14:48
PROVIDERS: PCP Internal Medicine; Visit Provider Physician Assistant
DX: M54.50 Low back pain, unspecified (principal)
CPT/HCPCS: 99213

== ENCOUNTER 2025-05-16 12:42 | Day surgery (SDC) | payer OTHER, SELFPAY ==
--- OUTSIDE RECORDS SUMMARY | 2025-05-01 12:31 | XMS_ITS | Clinical Summary ---
Author Organization [facility] ity Address [address] [place] [address] Care Team Providers Care Digital Account Director Name Role Phone Deep Vigil MD Primary [...] age to complete this topic Care Teams Digital Account Director Relationship Specialty Start Date End Date Deep Vigil MD PCP - General 11/23/06
--- OUTSIDE RECORDS SUMMARY | 2025-05-01 12:31 | XMS_ITS | Patient Health Record ---
[facility] Address [address] [place] [address] Care Team Providers Care Insurance Compliance Analyst Name Role Phone Arsenio MATTHEWS, Deja Cabrera Primary Care Provider Un available Sid Heriberto Unavailable [phone] Allergies Allergen (clinical drug ingredient) Drug/Non Drug [...] X ray : Foot, right 3V 08/01/2020 56331, [id number]/[id number], JOINT/BURSA 1 10/12/2019 Insurance Providers Payer Name Payer Address Payer Phone Subscriber Number Group Number Insured Name Patient Relationship to Insured Coverage Start Date Coverage End Date [facility] [id number] [address] [address] [place] [address] [id number] Vijay Kirk i Self - patient is the insured Medical (General) History Medical History History ICD Code Anxiety High blood pressure Surgical History Surgery Date(Month/Year) neck surgery back surgery appendectomy 81 elbow sx, bilateral
[2025-05-14 10:59] VITALS: BMI 26.1
--- NOTE | 2025-05-15 09:22 | P.CONAN_ITS ---
Documented by User: Anig Gooden NP 05/15/25 09:24 HPI - Anesthesia Eval Consult details Narrative: 64yo M for TUR Prostate (Bipolar Button) PMFSH Active Problems Active Problems: All Active Problems Lumbago (Acute) Spondylolisthesis at L3-L4 level (Acute) Postlaminectomy syndrome of lumbar region (Acute) Chronic pain syndrome (Acute) Facet arthropathy, lumbar (Acute) Spondylosis of lumbar region without myelopathy or radiculopathy (Acute) Vertebrogenic low back pain (Acute) Vitamin D deficiency (Acute) Neuropathy of left hand (Acute) BPH loc w urin obs/LUTS (Acute) Prostatic enlargement (Acute) Herniated nucleus pulposus, L3-4 (Acute) Radiculopathy, lumbar region (Acute) Disc degeneration, lumbar (Acute) Generalized anxiety disorder (Acute) Impaired fasting glucose (Acute) Mixed dyslipidemia (Acute) Essential hypertension (Acute) Cervicalgia (Acute) Past Medical History Medical History (Updated 05/06/25 @ 16:01 by RENATE Engle) Generalized anxiety disorder Impaired fasting glucose Right knee pain Complex tear of medial meniscus of knee Mixed dyslipidemia Essential hypertension Spondylosis of cervical spine Cervicalgia Family History Family History Father Myocardial infarction HTN (hypertension) Mental health disorder Substance use disorder Mother Myocardial infarction Multiple sclerosis Brother Substance use disorder Sister Substance use disorder Surgical History Surgical History (Updated 05/14/25 @ 11:01 by Roslyn Field RN) H/O elbow surgery History of appendectomy (~1980) H/O cervical spine surgery Hx of colonoscopy Social History Social History (Updated 05/14/25 @ 11:02 by Roslyn Field RN) Household Members: Significant Other Housing: House Are you a primary infant caregiver to a significant other at home: No Do you presently have visiting nurse or other home services: No Alcohol intake: current Alcohol intake frequency: a few times a month Patient Tobacco Use Status: Never used Tobacco e-Cigarette/Vaping Use: Never Used Use of substances other than those prescribed or required for medical reasons: No Have you been hit, kicked, punched, or otherwise hurt by someone within the past year? If so, by whom?: No Are you DNR?: No Advance Directives: No Advance Directives Information Provided: Yes Advance Directives on File: No Poor oral hygiene: No service: No Current occupational status: employed Cognitive needs: No Hearing needs: No Vision needs: No Meds Allergies Allergy/AdvReac Type Severity Reaction Status Date / Time codeine (CODEINE) Allergy Intermediate FACIAL Verified 05/14/25 10:59 SWELLING, RASH Drydwsv-JMY-XyQ Reductase AdvReac Intermediate Joint Pain Verified 05/14/25 10:59 Inhibitor Home Medications ?Medication ?Instructions ?Recorded ?Confirmed ?Last Taken ?Type clonazepam 0.5 mg tablet 0.5 mg PO DAILY PRN Anxiety 04/19/25 05/16/25 05/16/25 12:00 History acetaminophen 650 mg 650 mg PO TID-QID 05/14/25 0 05/14/25 Unknown History tablet,extended release tamsulosin 0.4 mg capsule (Flomax) 0.4 mg PO BEDTIME 0 05/14/25 05/14/25 Unknown History Exam Height,Weight and Vital Signs: Height 6 ft 1 in Weight 89.811 kg Pertinent Lab Results Pertinent Lab Results: Laboratory Tests 04/20/25 11:11 WBC 5.4 Hgb 14.4 Hct 40.5 L Plt Count 210 Sodium 141 Potassium 4.0 Chloride 109 H Carbon Dioxide 25 BUN 15 Creatinine 0.85 Assessment and Plan Assessment Anesthesia Assessment: Chart Reviewed Documented by User: Carl Williamson MD 05/16/25 14:54 [facility] Past Medical History Medical History (Updated 05/06/25 @ 16:01 by RENATE Engle) Generalized anxiety disorder Impaired fasting glucose Right knee pain Complex tear of medial meniscus of knee Mixed dyslipidemia Essential hypertension Spondylosis of cervical spine Cervicalgia Family History Family History Father Myocardial infarction HTN (hypertension) Mental health disorder Substance use disorder Mother Myocardial infarction Multiple sclerosis Brother Substance use disorder Sister Substance use disorder Family history of problems with anesthesia: No Surgical History Surgical History (Updated 05/14/25 @ 11:01 by Roslyn Field RN) H/O elbow surgery History of appendectomy (~1980) H/O cervical spine surgery Hx of colonoscopy History of Problems with Anesthesia: No Social History Social History (Updated 05/14/25 @ 11:02 by Roslyn Field RN) Household Members: Significant Other Housing: House Are you a primary infant caregiver to a significant other at home: No Do you presently have visiting nurse or other home services: No Alcohol intake: current Alcohol intake frequency: a few times a month Patient Tobacco Use Status: Never used Tobacco e-Cigarette/Vaping Use: Never Used Use of substances other than those prescribed or required for medical reasons: No Have you been hit, kicked, punched, or otherwise hurt by someone within the past year? If so, by whom?: No Are you DNR?: No Advance Directives: No Advance Directives Information Provided: Yes Advance Directives on File: No Poor oral hygiene: No service: No Current occupational status: employed Cognitive needs: No Hearing needs: No Vision needs: No Meds Allergies Allergy/AdvReac Type Severity Reaction Status Date / Time codeine (CODEINE) Allergy Intermediate FACIAL Verified 05/14/25 10:59 SWELLING, RASH Cyxlqyn-WFF-AlB Reductase AdvReac Intermediate Joint Pain Verified 05/14/25 10:59 Inhibitor Home Medications ?Medication ?Instructions ?Recorded ?Confirmed ?Last Taken ?Type clonazepam 0.5 mg tablet 0.5 mg PO DAILY PRN Anxiety 04/19/25 05/16/25 05/16/25 12:00 History acetaminophen 650 mg 650 mg PO TID-QID 05/14/25 0 05/14/25 Unknown History tablet,extended release tamsulosin 0.4 mg capsule (Flomax) 0.4 mg PO BEDTIME 0 05/14/25 05/14/25 Unknown History Exam Airway Mallampati Class: II TM Dist: <=3cm Neck ROM: Full Loose/Missing/Broken Teeth: Yes (one glued tooth upper left) and Upper Heart: ok Lungs: ok Assessment and Plan Assessment Anesthesia Assessment: Anesthesia Plan Discussed Final Anesthetic Review Family History of Problems with Anesthesia: No History of Problems with Anesthesia: No NPO: Yes ASA Class: II Final Preanesthetic Review: No Changes in Pt Med Stat, Meds/Allgs Chart Reviewed, Consent Obtained/Reviewed and Anes Risks/Benef Reviewed Patient Risk: Intermediate Procedure Risk: Low Anesthetic Plan Anesthetic Plan: GA and Agree w/ Assess. and Plan Disposition: Standard PACU
[2025-05-16] VITALS (8 sets, daily range): BP systolic 104–135; BP diastolic 60–85; PULSE 60–93; RESP 12–16; TEMP 36.1–36.3; O2SAT 96–99
[2025-05-16] MEDS: Lactated Ringers 1,000 ML 100 ML IVCONT (13:25)
--- NOTE | 2025-05-16 14:42 | MHC.SHP ---
Pre-Procedural Eval Section A - 24 Hr Update-Section A only Date of Service: 05/16/25 The patient is an INPATIENT: No Changes since office visit: No Cold of Flu in the past 2 weeks, No New Medical Problems, No Changes in Medication and No Patient answered all questions The patient has been examined within 24 hours of the surgical procedure. The History & Physical has been completed within 30 days and I have reviewed it.: No Section B - Complete if H&P > 30 days Chief Complaint: Benign prostatic hyperplasia with lower urinary Details of Present Illness: BPH with bipolar TUR prostate Relevant Social History: None Present Medications: see Short Stay Collaborative assessment Medical History: No relevant PMH History of Previous Operations: No relevant previous surgery Allergies: Allergies Allergy/AdvReac Type Severity Reaction Status Date / Time codeine (CODEINE) Allergy Intermediate FACIAL Verified 05/14/25 10:59 SWELLING, RASH Dwaenmm-CSV-CuV Reductase AdvReac Intermediate Joint Pain Verified 05/14/25 10:59 Inhibitor Review of Systems Sugical H&P ROS: Negative: Constitution, Cardiovascular, Respiratory, Neurological, Psychiatric, Hem-Onc, Allergic/Immunologic, Gastrointestinal, Genitourinary, Musculoskeletal, Integumentary, Endocrine and Eyes/Ears/Nose/Throat Exam Surgical H&P Exam: Normal: HEENT, Normal: Heart, Normal: Lungs, Normal: Extremities, Normal: Abdomen, Normal: Skin and Normal: Neurological Plan Diagnosis/Plan: Unchanged (Bipolar plasma button TUR prostate) I have reviewed the history and physical and performed a pertinent physical examination on my patient. No changes have occurred unless specified. Time Spent With Patient Time: Total time managing care of this patient today ____ minutes.
--- NOTE | 2025-05-16 15:19 | W.PM.OPN ---
Operative Note Operative Note Date of Service: 05/16/25 Narrative: PreOperative Diagnosis: Bladder outlet obstruction Post Operative Diagnosis: Bladder outlet obstruction Procedure: CPT 09667 - Transurethral electrosurgical prostate resection Surgeon: Dr Andriy Chaparro Anesthesia: General History of bladder outlet obstruction. Treated with alpha-ernst and other medications. Still with symptoms. On cystoscopy in office has tight bladder neck. Recommendation for prostate procedure with plasma button Transurethral electrosurgical prostate resection. Size of prostate less approx 40 cc. Risks and benefits have been discussed. Focus was placed on development of retrograde ejaculation which is a normal part of this procedure. Procedure: After informed consent was verified the patient was brought to the operating room and placed in a supine position. Anesthesia was administered per protocol. Patient was placed in modified dorsal lithotomy position and prepped and draped in a sterile fashion. Safety pause time-out was confirmed. Antibiotics have been given. A Twenty-four Burmese cystoscope with visual obturator was inserted per urethra. No abnormalities were found of the anterior and bulbar urethra. The prostatic urethra shows tight bladder neck. The bladder was examined and both ureteric orifices were seen in their normal positions away from the area of interest. Bladder trabeculation Grade 1. The visual obturator was removed and replaced with a plasma button resection loop. Using the plasma button incisions were made at the 5 and 7 o'clock position. The initial incision was made at the 7 o'clock position starting level with the bladder neck and in line with ureteric orifice on that side. The groove was extended distally to the area just proximal of the veru. This groove was deepened with multiple passes to define the lateral aspects of the median lobe area. The proximal portion of the groove was extended through the bladder neck and remained in line with the ureteric orifice on each side. The goal was to reveal prostate strands from the surgical capsule. Once clearly defined the groove was extended in the lateral direction. The 05:00 o'clock position groove was then created in a similar fashion. The intervening median lobe was then resected and enucleated tissue released into the bladder. The deep boundary of resection was defined by the prostate surgical capsule. In this case due to the smaller prostate size a decision was made not to proceed with further resection of the lateral lobes. At completion debris and pieces of prostate were removed from the bladder with irrigation. Both ureteric orifices were reviewed again in shown to be patent in away from any areas of energy damage. The apical area was reviewed and any stray mucosal ooze was controlled. Belladonna suppository was placed for postoperative pain and bladder spasm A 22 Burmese 30 cc balloon Becerril catheter was placed into the bladder using a flexible stylet. Clear efflux was obtained upon irrigation with a Carrie piston syringe. 30 cc was placed in the balloon and gentle traction was placed. A snap was used to hold tension on the catheter to control bleeding during patient moved and transported. A drainage bag was placed. Once transportation is complete to the PACU the snap will be removed. The patient tolerated the procedure well, he was extubated in the operating and transferred in a stable condition to the recovery area. Pathology: Prostate tissue Drains: Becerril catheter
== END 2025-05-16 16:39 | disposition home or self-care (01) ==
PROVIDERS: PCP Internal Medicine; Visit Provider Urology
PROC: 0VT08ZZ Resection of Prostate, Via Natural or Artificial Opening Endoscopic (ICD-10-PCS; CPT 52601; principal; 2025-05-16 14:30)
DX: N40.1 Benign prostatic hyperplasia with lower urinary tract symptoms (principal); N13.8 Other obstructive and reflux uropathy; R73.01 Impaired fasting glucose; I10 Essential (primary) hypertension; E78.2 Mixed hyperlipidemia; F41.1 Generalized anxiety disorder; Z79.899 Other long term (current) drug therapy; Z88.5 Allergy status to narcotic agent; Z88.8 Allergy status to other drugs, medicaments and biological substances; Z98.890 Other specified postprocedural states
CPT/HCPCS: 52601; 88305; A4649; J0131; J1100; J1956; J2003; J2250; J2405; J2704; J3010

== ENCOUNTER → 2025-05-16 12:42 | Outpatient (BNV) | payer OTHER, SELFPAY | PROVIDERS: PCP Internal Medicine; Visit Provider Urology | DX: N32.0 Bladder-neck obstruction (principal) | CPT/HCPCS: 52601 ==

== ENCOUNTER 2025-06-18 14:33 | Outpatient (AMB) | payer OTHER, SELFPAY ==
--- NOTE | 2025-06-18 14:34 | A.OFFVIS_ITS ---
Intake Visit Reasons: bipolar button follow up Intake Note: Patient is present for Post Op Bipolar Button Urology Medication:TAMSULOSIN, FINASTERIDE Antibiotic Allergy:NONE Blood Thinner:NONE PVR:30 MLS Valve Lapper Required: No Accompanied by: Self / Same As Patient Allergies codeine (CODEINE) Allergy (Intermediate, Verified 06/18/25 14:34) FACIAL SWELLING, RASH Erbtmdd-HCC-VwO Reductase Inhibitor Adverse Reaction (Intermediate, Verified 06/18/25 14:34) Joint Pain HPI Comments Details: Joao is a pleasant male. He is a patient of Dr. Cesar. He seen for the following urologic conditions - lower urinary tract symptoms Follow-up after undergoing plasma button procedure on prostate Six week follow-up PVR 30 cc Lower urinary tract symptoms Primarily obstructive in nature Prior treatment includes terazosin and alfuzosin Office cystoscopy showed tight bladder neck Intervention - 05/27 plasma button PSA - 06/22 2.2, 07/24 3.3, 01/23 3.1, 02/22 2.1, 10/26 2.1 PFSH Medical History (Updated 05/06/25 @ 16:01 by RENATE Engle) Generalized anxiety disorder Impaired fasting glucose Right knee pain Complex tear of medial meniscus of knee Mixed dyslipidemia Essential hypertension Spondylosis of cervical spine Cervicalgia Surgical History (Updated 05/14/25 @ 11:01 by Roslyn Field RN) H/O elbow surgery History of appendectomy (~1980) H/O cervical spine surgery Hx of colonoscopy Family History Father Myocardial infarction HTN (hypertension) Mental health disorder Substance use disorder Mother Myocardial infarction Multiple sclerosis Brother Substance use disorder Sister Substance use disorder Social History (Updated 05/14/25 @ 11:02 by Roslyn Field RN) Household Members: Significant Other Housing: House Are you a primary college and career counselor to a significant other at home: No Do you presently have visiting nurse or other home services: No Alcohol intake: current Alcohol intake frequency: a few times a month Patient Tobacco Use Status: Never used Tobacco e-Cigarette/Vaping Use: Never Used service: No Current occupational status: employed Cognitive needs: No Hearing needs: No Vision needs: No Office Procedures Post Void Residual Post Residual Void Post Void Residual (PVR): 30 93810-Xheg Void Residual by ultrasound Results AMB Urinalysis, Automated UA Leukoctes 70 Sarina/uL Last Edit by Lashon Whitt [facility] on 06/18/25 15:56 UA Nitrite Last Edit by Lashon Whitt, [facility] on 06/18/25 15:56 UA Urobilinogen 0.2 mg/dL Last Edit by Lashon Whitt, [facility] on 06/18/25 15:5 6 UA Protein 15 mg/dL Last Edit by Lashon Whitt, [facility] on 06/18/25 15:56 UA pH 6.0 Last Edit by Lashon Whitt, [facility] on 06/18/25 15:56 UA Blood 10 John/uL Last Edit by Lashon Whitt, [facility] on 06/18/25 15:56 UA Specific [place] 1.025 Last Edit by Lashon Whitt [facility] on 06/18/25 15: 56 UA Ketone Last Edit by Lashon Whitt [facility] on 06/18/25 15:56 UA Bilirubin 0 mg/dL Last Edit by Lashon Whitt [facility] on 06/18/25 15:56 UA Glucose 0 mg/dL Last Edit by Lashon Whitt, [facility] on 06/18/25 15:56 Assessment & Plan Assessment & Plan Orders: Orders Prostate Specific Antigen 6 Months N40.1 - Benign prostatic hyperplasia with lower urinary tract symptoms AMB Post Void Residual by ultrasound Today N40.1 - Benign prostatic hyperplasia with lower urinary tract symptoms AMB Urinalysis Automated Today Z13.9 - Encounter for screening, unspecified Coding CPT Codes Post Residual Void - PVR CPT Code: 03560-Swip Void Residual by ultrasound ([id number])
--- OUTSIDE RECORDS SUMMARY | 2025-06-18 18:17 | XMS_ITS | Patient Health Record ---
Author Organization [facility] Address [address] [place] [address] Care Team Providers Care Alkylation Operator Name Role Phone Arsenio MATTHEWS, Deja Cabrera Primary Care Provider Un available Heriberto Lau Unavailable [phone] Allergies Allergen (clinical drug ingredient) Drug/Non Drug [...] X ray : Foot, right 3V 08/01/2020 [id number], [id number]/[id number], JOINT/BURSA 1 10/12/2019 Insurance Providers Payer Name Payer Address Payer Phone Subscriber Number Group Number Insured Name Patient Relationship to Insured Coverage Start Date Coverage End Date [facility] [id number] [address] [address] [place] [address] [id number] Vijay Kirk i Self - patient is the insured Medical (General) History Medical History History ICD Code Anxiety High blood pressure Surgical History Surgery Date(Month/Year) neck surgery back surgery appendectomy 81 elbow sx, bilateral
== END 2025-06-18 15:00 | disposition home or self-care (01) ==
LOC: HO.HUSH 14:35
PROVIDERS: PCP Internal Medicine; Visit Provider Urology
DX: Z13.9 Encounter for screening, unspecified (principal)

== ENCOUNTER → 2025-06-18 14:33 | Outpatient (BNVA) | payer OTHER, SELFPAY | PROVIDERS: PCP Internal Medicine; Visit Provider Urology | DX: N40.1 Benign prostatic hyperplasia with lower urinary tract symptoms (principal) | CPT/HCPCS: 51798; 81003 ==

== ENCOUNTER 2025-07-04 12:45 | Outpatient (REF) | payer OTHER, SELFPAY ==
--- OUTSIDE RECORDS SUMMARY | 2025-07-04 14:15 | XMS_ITS | Clinical Summary ---
Author Organization [facility] Address [address] [place] [id number] Care Team Providers Care Apparel Patternmaker Name Role Phone Deep Vigil MD Primary Care Provider Unavaila ble Social History Tobacco Use Types Packs/Day Years Used Date Smoking Tobacco: Never Assessed Sex and Gender Information Value Date Recorded Sex Assigned at Not on file Legal Sex Male 2:43 PM EST Gender Identity Not on file Sexual Orientation Not on file Plan of Treatment Upcoming Encounters Date Type Department Care Team ([facility] Contact Info) Description 07/05/2025 1:30 PM EDT Consult Neurosurgery [place] [facility] [address] [address] [place] [address] Daniela Guajardo MD [address] [place] [address] Health Maintenance Due Date Last Done Comments Colorectal Cancer Screening: Colonoscopy 1961 DTaP,Tdap,and Td Vaccines (1 - Tdap) 1980 Pneumococcal Vaccine: 50+ Ye ars (1 of 1 - PCV) 2011 Zoster Vaccines (1 of 2) 2011 Depression Screening 10/03/2024 COVID-19 Vaccine (1 - 2023-2 5 season) 2025 Influenza Vaccine (#1) 2025 Cholesterol Screening (Lipid Panel) 06/14/2025 HIV Screening 06/14/2025 Hepatitis C Screening 06/14/2025 Social Influencers of Health Screening 06/14/2025 RSV Immunization Adult Patie nts (1 - [...] on patient's age to complete this topic Insurance [facility] Care Teams Apparel Patternmaker Relationship Specialty Start Date End Date Deep Vigil MD PCP - General 11/23/06
--- OUTSIDE RECORDS SUMMARY | 2025-07-04 14:15 | XMS_ITS | Patient Health Record ---
Author Organization [facility] Address [address] [place] [address] Care Team Providers Care Check Embosser Name Role Phone Arsenio MATTHEWS, Deja Cabrera Primary Care Provider Un available Heriberto Lau Unavailable [phone] Allergies Allergen (clinical drug ingredient) Drug/Non Drug [...] X ray : Foot, right 3V 08/01/2020 [id number], [id number]/INJECT, JOINT/BURSA 1 10/12/2019 Insurance Providers Payer Name Payer Address Payer Phone Subscriber Number Group Number Insured Name Patient Relationship to Insured Coverage Start Date Coverage End Date [facility] [id number] [address] [address] [place] [address] [id number] Vijay Kirk i Self - patient is the insured Medical (General) History Medical History History ICD Code Anxiety High blood pressure Surgical History Surgery Date(Month/Year) neck surgery back surgery appendectomy 81 elbow sx, bilateral
[2025-07-04 16:51] LABS: Alanine Aminotransferase 17 U/L (0-40); Anion Gap 8 (12-20); Aspartate Amino Transferase 19 U/L (5-37); Blood Urea Nitrogen 21 mg/dL (9-16); Calcium 8.8 mg/dL (8.4-10.2); Carbon Dioxide 27 mmol/L (22-29); Chloride 108 mmol/L (96-108); Cholesterol 273 mg/dL (<200); Estimated Glomerular Filt Rate > 60; HDL Cholesterol 58 mg/dL (>40); Potassium 4.1 mmol/L (3.3-5.1); Sodium 139 mmol/L (135-145); Triglycerides 205 mg/dL (<150)
[2025-07-04 16:55] LABS: Hemoglobin A1C 150.4751 umol/L; Total Hemoglobin (HGBA1C) 3772.4103 umol/L
== END 2025-07-04 12:46 | disposition home or self-care (01) ==
LOC: HO.HMGCLDS 12:45
PROVIDERS: PCP Internal Medicine; Visit Provider Internal Medicine
DX: I10 Essential (primary) hypertension (principal); E78.2 Mixed hyperlipidemia; R73.01 Impaired fasting glucose; E55.9 Vitamin D deficiency, unspecified
CPT/HCPCS: 36415; 80048; 80061; 82306; 83036; 84450; 84460

== ENCOUNTER 2025-07-08 11:49 | Outpatient (AMB) | payer OTHER, SELFPAY ==
--- OUTSIDE RECORDS SUMMARY | 2025-07-05 13:30 | XMS_ITS | Encounter Summary ---
Author Organization [facility] Address [address] [place] [address] Care Team Providers Care Postal Supervisor Name Role Phone Deja Cesar MD Primary Care Provider Reason for Visit * Reason Comments Back Pain Low back and left le g pain Encounter Details Date Type Department Care Team (Late st Contact Info) Description 07/05/2025 1:30 PM EDT Consult Neurosurgery [place] [facility] [address] [id number] Daniela Guajardo MD [address] [place] [address] Other spondylosis with radiculopathy, lumbar region (Primary Dx) Social History Tobacco Use Types Packs/Day Years Used Date Smoking Tobacco: Never Assessed Sex and Gender Information Value Date Recorded Sex Assigned at Not on file Legal Sex Male 2:43 PM EST Gender Identity Not on file Sexual Orientation Not on file documented as of this encounter Last Filed Vital Signs Vital Sign Reading Time Taken Comments Blood Pressure - - Pulse - - Temperature - - Respiratory Rate - - Oxygen Saturation - - Inhaled Oxygen Concentration - - Weight 89.8 kg (198 lb) 07/05/2025 1:36 PM EDT Height 185.4 cm (6' 1 ) 07/05/2025 1:36 PM EDT Body Mass Index 26.12 07/05/2025 1:36 PM EDT documented in this encounter Progress Notes * Daniela Guajardo MD - 07/05/2025 6:34 PM EDTAssociated Problem(s): Other spondylosis with radiculopathy, lumbar region I reviewed the imaging findings directly with Mr. Scales noting the loss of disc height at multiple levels but most significantly, there is severe degenerative change and loss of height at L3-4 with concomitant foraminal stenosis which would be reasonably expected to cause left L3 radiculopathy. This is likely the primary cause of his back pain though the distribution of his leg symptoms is more of an L4 radiculopathy. He underwent medial branch blocks to see if an ablation would benefit him but his response lasted 20 minutes instead of the anticipated several hours. A left L3 transforaminal injection was suggested by [facility] but does not appear that this was scheduled or performed. I recommended that the patient follow-up with them to proceed with that injection as it will help us localize if this is the source of his leg pain. If he has a positive response, we candiscuss whether to continue with pain management or consider surgical intervention. Using a spine model, I demonstrated how an interbody fusion would give him support by recreating disc height which then indirectly relieves foraminal stenosis. He will follow-up with us after his treatment at [facility]. * Daniela Guajardo MD - 07/05/2025 1:30 PM EDT NEW PATIENT CONSULTATION Date of Visit: 07/05/2025 Referring Physician: No ref. provider found Primary Care Physician: Deja Cesar MD RE: Vijay Scales : 1960 Chief Complaint Patient presents with Back Pain Low back and left leg pain Dear Dr Deja Cesar MD Thank you for referring Vijay Scales to our office today. Vijay Scales is a 64 y.o. male who presents to our office with acute worsening of his chronic lower back pain with radiation into his left leg since 03/05/2025. He describes that his back pain is provoked by being in any positionor activity for 10 minutes or more such as sitting, standing or walking. This will radiate down hisback to his left anterior thigh and burgos. He underwent an L2, L3 and L4 medial branch blocks by who expected at least 5 to 6 hours of relief. The patient states there was some improvementfor about 20 minutes. He is also followed at [facility] and has been seen 3 times over the last few months to discuss ongoing treatment options. There was mention of a transforaminal injection but the patient states this was not performed. 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 He has had multiple MiLD procedures in his back over the years. He rates his pain level 5-6/10. Medical History[1] Surgical History[2] Allergies[3] Current Medications[4] Social History[5] Social History Social History Narrative Not on file Family History[6] Review of Systems Notable for anxiety Physical Exam Awake, alert and oriented with normal speech and good comprehension. He has at least 7 small, horizontal, paramedian incisions over the lumbar region and 1 vertical midline one, all are well-healed. He is mildly tender over the right SI joint. Seated SLR is negative, strength 5/5 confrontational testing, sensation light touch intact, gait is steady. Vitals: 07/05/25 1336 Weight: 89.8 kg (198 lb) Height: 1.854 m (73 ) Imaging Review of the lumbar spine MRI from [facility] on 03/17/2025 shows loss of disc height at L2-3, L4-5 and L5-S1 with severe loss of height and degenerative disc changes at L3-4 noting sclerotic endplate change worse on the left. There is a grade 1 anterolisthesis at this level. The combination of disc bulge and lateral osteophyte causes severe left foraminal stenosis and L3 nerve root compression. Assessment/Plan Problem List Items Addressed This Visit Other spondylosis with radiculopathy, lumbar region - Primary I reviewed the imaging findings directly with Mr. Scales noting the loss of disc height at multiple levels but most significantly, there is severe degenerative change and loss of height at L3-4 with concomitant foraminal stenosis which would be reasonably expected to cause left L3 radiculopathy. This is likely the primary cause of his back pain though the distribution of his leg symptoms is more of an L4 radiculopathy. He underwent medial branch blocks to see if an ablation would benefit him but his response lasted 20 minutes instead of the anticipated several hours. A left L3 transforaminal injection was suggested by [facility] but does not appear that this was scheduled or performed. I recommended that the patient follow-up with them to proceed with that injection as it will help us localize if this is the source of his leg pain. If he has a positive response, we candiscuss whether to continue with pain management or consider surgical intervention. Using a spine model, I demonstrated how an interbody fusion would give him support by recreating disc height which then indirectly relieves foraminal stenosis. He will follow-up with us after his treatment at [facility]. Thank you for allowing us to care for your patient. Daniela Guajardo MD on 07/05/2025 at 6:34 PM EDT CC: No ref. provider found Deja Cesar MD [facility] Neurosurgical [place] [1] Past Medical History: Diagnosis Date Hyperlipidemia Hypertension [2] Past Surgical History: Procedure Laterality Date BACK SURGERY MILD porcedure ELBOW SURGERY Bilateral ulnar decompression NECK SURGERY cervical decomp/neris PROSTATE SURGERY procedure for enlarged prostate [3] Allergies Allergen Reactions Codeine Other Reaction(s): Not available Goefhia-Llp-Eyh Reductase Inhibitors Joint pain [4] Current Outpatient Medications Medication Sig Dispense Refill acetaminophen (TYLENOL 8 HOUR) 650 mg 8 hr tablet ezetimibe (ZETIA) 10 mg tablet lisinopriL (PRINIVIL,ZESTRIL) 10 mg tablet meloxicam (MOBIC) 15 mg tablet PARoxetine CR (PAXIL-CR) 25 mg 24 hr tablet tamsulosin (FLOMAX) 0.4 mg 24 hr capsule No current facility-administered medications for this visit. [5] [6] No family history on file. documented in this encounter Plan of Treatment Not on file documented as of this encounter Visit Diagnoses Diagnosis Other spondylosis with radiculopathy, lumbar region- Primary documented in this encounter Historical Medications * This list may reflect changes made after this encounter. Medication Sig Dispense Quantity Refills Last Filled Start D ate End Date ezetimibe (ZETIA) 10 mg tablet 05/09/2025 lisinopriL (PRINIVIL,ZESTRIL) 10 mg tablet PARoxetine CR (PAXIL-CR) 25 mg 24 hr tablet tamsulosin (FLOMAX) 0.4 mg 24 hr capsule acetaminophen (TYLENOL 8 HOUR) 650 mg 8 hr tablet meloxicam (MOBIC) 15 mg tablet 05/29/2025 added in this encounter Care Teams Postal Supervisor Relationship Specialty Start Date End Date Deja Cesar MD [address] [place] [address] PCP - General Internal Medicine 07/05/25 documented as of this encounter
[2025-07-08 12:16] VITALS: BP 122/70; PULSE 81; RESP 16; TEMP 36.7; O2SAT 98; BMI 27.2
--- NOTE | 2025-07-08 12:16 | MHC.PC.OV ---
Vital Signs 07/08/25 12:16 Height 6 ft 1 in Weight 206 lb BMI 27.2 BP 122/70 Blood Pressure Location Rt brachial Position Sitting Respiration 16 Pulse 81 Pulse Source Pulse Oximeter Temp 98.1 F Temp Source Oral Pulse Oximetry (%) 98 Oxygen Delivery Method Room Air Intake Visit Reasons: 3 months f/up Intake Note: Pt is here today for his 3mo. f/u Allergies codeine (CODEINE) Allergy (Intermediate, Verified 07/14/25 15:03) FACIAL SWELLING, RASH Gbaexly-UTL-RuG Reductase Inhibitor Adverse Reaction (Intermediate, Verified 07/14/25 15:03) Joint Pain Medication List - Last Reconciled 07/08/25 by Deja Cesar MD acetaminophen ER 650 mg PO TID-QID clonazepam 0.5 mg PO DAILY PRN diltiazem HCl ER 240 mg PO DAILY ezetimibe (Zetia) 10 mg PO DAILY lisinopril 10 mg PO QAM meloxicam 15 mg PO DAILY PRN paroxetine HCl ER 25 mg PO DAILY tamsulosin (Flomax) 0.4 mg PO BEDTIME Tobacco use date assessed: 07/08/25 Dental Screening Dental Screen Date: 07/08/25 Did you have a dental visit in the last 12 months?: No Did you have a dental problem in the last 6 months where you did not have access to dental care?: No Was dental information given to patient?: Patient has dentist HPI 3 months f/up HPI Details The patient is a 64-year-old male presenting follow-up on his hyperlipidemia. Recent fasting labs done showed fasting glucose in the diabetic range but hemoglobin A1c is normal at 5.8%, LDL cholesterol however is higher than last check. He attributed to some dietary indiscretions and not consistent with his exercise due do ongoing pain in his lower back. The patient experiences anxiety and pressure due to unemployment and concerns about returning to work, which he believes exacerbates his back pain. He is considering short-term and long-term disability options and is consulting with specialists for his back issues. The patient has a history of vitamin D deficiency, which is currently managed with sun exposure and dietary intake. Latest labs showed normal vitamin-D level [facility] Medical History Generalized anxiety disorder Impaired fasting glucose Right knee pain Complex tear of medial meniscus of knee Mixed dyslipidemia Essential hypertension Spondylosis of cervical spine Cervicalgia Surgical History H/O elbow surgery History of appendectomy (~1980) H/O cervical spine surgery Hx of colonoscopy Family History Father Myocardial infarction HTN (hypertension) Mental health disorder Substance use disorder Mother Myocardial infarction Multiple sclerosis Brother Substance use disorder Sister Substance use disorder Social History Household Members: Significant Other Housing: House Are you a primary career technical education instructor to a significant other at home: No Do you presently have visiting nurse or other home services: No Alcohol intake: current Alcohol intake frequency: a few times a month Patient Tobacco Use Status: Never used Tobacco e-Cigarette/Vaping Use: Never Used service: No Current occupational status: employed Cognitive needs: No Hearing needs: No Vision needs: No Questionnaire PHQ-9 Over the last 2 weeks, how often have you been bothered by any of the following problems? 1. Little interest or pleasure in doing things: more than half the days 2. Feeling down, depressed, or hopeless: more than half the days 3. Trouble falling or staying asleep, or sleeping too much: nearly every day 4. Feeling tired or having little energy: more than half the days 5. Poor appetite or overeating: not at all 6. Feeling bad about yourself - or that you are a failure or have let yourself or your family down: not at all 7. Trouble concentrating on things, such as reading the newspaper or watching television: not at all 8. Moving or speaking so slowly that other people could have noticed. Or the opposite - being so fidgety or restless that you have been moving around a lot more than usual: more than half the days 9. Thoughts that you would be better off or of hurting yourself in some way: not at all Total score: 11 Depression Screening Interpretation: Positive (Currently followed by psychiatrist, Michelle Rabago at [facility]) Depression Screening Follow-up: Existing condition, In treatment and Community Mental Health Worker F/U Depression Screening Done: Yes Source: Developed by Drs. Cortez Schultz, Pat Hernandez, Kush William and colleagues, with an educational ulises from [employer]. Thrive Questionnaire Date Thrive assessed: 07/08/25 I am a: Patient What is your living situation today?: I have a steady place to live Within the past 12 months, did the food you bought not last and you didn't have the money to get more?: Never true Within the past 12 months, did you worry whether your food would run out before you got money to buy more?: Never true Do you have trouble paying for medicines?: No Do you have trouble getting transportation to medical appointments?: No Do you have trouble paying your heating and electricity bill?: No Do you have trouble taking care of your child, family member or friend?: No Do you have trouble with day-to-day activities such as bathing, preparing meals, shopping, managing finances, etc.?: No Are you currently unemployed and looking for a job?: No Are you interested in more education?: No Please select the resources that you would like help with: None Currently or been in a relationship where the following occur: No concerns reported THRIVE Score: 0 AUDIT C Alcohol Use Questionnaire (AUDIT-C) 1. How often do you have a drink containing alcohol?: 2-3 times a week 2. How many drinks containing alcohol do you have on a typical day when you are drinking?: 1 or 2 3. How often do you have six or more drinks on one occasion?: Never Total Score: 3 SEE-7 AMB Questionnaire SEE-7 Date SEE - 7 assessed: 07/14/25 Feeling nervous, anxious, or on edge: 2 = More than half the days Not being able to stop or control worryin = More than half the days Worrying too much about different things: 2 = More than half the days Trouble relaxin = Not at all Being so restless that it is hard to sit still: 0 = Not at all Becoming easily annoyed or irritable: 0 = Not at all Feeling afraid as if something awful might happen: 0 = Not at all Total SEE-7 score (0-4 normal; 5-9 mild; 10-14 moderate; 15-21 severe): 6 Source: Developed by Drs. Cortez LPat Deleon Kurt Kroenke and colleagues, with an educational ulises from [employer]. SEE-7 Assessment Billing SEE-7 Assessment Tool: SEE-7 Assessment 09929 (sees Michelle Gonsalez at [facility]) Review of Systems Const All systems reviewed & are unremarkable except as noted in HPI and below Eyes Denies change in vision ENT Reports Normal hearing present Card Denies chest pain, Denies irregular heart rhythm, Denies lightheadedness and Denies dyspnea Resp Denies cough and Denies dyspnea GI Reports no additional complaints Reports no additional complaints Musc Reports as per HPI Neuro Reports Normal hearing present, Denies Abnormal speech present and Denies Sensory deficit (Neuro) Psych Reports no additional complaints and Reports as per HPI Endo Reports no additional complaints Florian/Lymph Reports no additional complaints Aller/Immun Reports no additional complaints Physical exam (Primary Care) Vital Signs: Last Vital Signs Temp 98.1 F 07/08/25 12:16 Pulse 81 07/08/25 12:16 Resp 16 07/08/25 12:16 BP 122/70 07/08/25 12:16 Pulse Ox 98 07/08/25 12:16 Oxygen Delivery Method Room Air 07/08/25 12:16 BMI result Body Mass Index 27.2 Tobacco/Smoking Status: Tobacco use Status Tobacco use date assessed 07/08/25 07/08/25 12:22 Patient Tobacco Use Status Never used Tobacco 07/08/25 12:22 e-Cigarette/Vaping Use Never Used 07/08/25 12:22 PHQ-9: PHQ-9 Score PHQ-9: Total score 11 07/08/25 12:52 Depression Screening Interpretation: Positive (Currently followed by psychiatrist, Michelle Rabago at [facility]) Depression Screening Follow-up: Existing condition, In treatment and Community Mental Health Worker F/U Thrive Assessment: Date of Thrive Assessment Date Thrive assessed 07/08/25 07/08/25 12:22 Currently or been in a relationship where the following occur: No concerns reported Const Limitations: no limitations HENMT Ears: external ears normal General nose exam: Normal external nose present Mouth: oropharynx normal and moist mucous membranes Eyes General: appearance normal, both eyes and all related structures Sclerae: sclerae normal Pupils: Equal, round and reactive pupils present EOM: EOMs intact bilaterally Neck Neck: Yes full ROM, Yes no lymphadenopathy and Yes supple Resp Effort & Inspection: normal respiratory effort and able to speak in complete sentences Auscultation: clear to auscultation bilaterally Cardio Rate: regular rate Rhythm: regular rhythm Heart sounds: S1 normal heart sound present and S2 normal heart sound present GI Palpation (GI): Soft to palpation, nontender and no masses Auscultation: normal bowel sounds General: Yes no CVA tenderness Back/Spine/Pelvis Back: no CVA tenderness and No back tenderness Skin General skin exam: no rashes or lesions noted Neuro Cranial nerves: Yes Equal, round and reactive pupils present and Yes Normal hearing present Cognition (Neuro): normal cognition Speech: No Abnormal speech present Sensory Exam: No Sensory deficit (Neuro) Extrem General: Yes full ROM, Yes no joint enlargement, Yes no clubbing, cyanosis or edema and Yes no calf tenderness Psych Appearance: grossly normal and well kempt Mental Status: mental status grossly normal Speech and movement: Normal speech and movement present Affect: normal affect Results Reviewed Results Reviewed: Name: Vijay Scales Age/Sex: 64/M : 1960 Unit#: [id number] Attend Dr: Deja Cesar MD Re07/04/25 Status: DEP REF Location: [facility] Disch: SPEC : [id number] JERRICA: 07/04/25 STATUS: COMP REQ : [id number] RECD: 07/04/[address]: Deja Cesar MD COMP: 07/04/25 ENTERED: 07/04/[address]: ORDERED: Met Prof Fast, AST, ALT, Lipid Panel, Vitamin D 25-OH Test Result Flag Reference Sodium 139 135-145 mmol/L Potassium 4.1 3.3-5.1 mmol/L CL 108 96-108 mmol/L CO2 27 22-29 mmol/L Gap 8 L 12-20 BUN 21 H 9-16 mg/dL Creat 0.96 0.5-1.4 mg/dL eGFR > 60 Chronic Kidney Disease: Estimated GFR < 60 mL/min/1.73m2 Severe Kidney Disease: Estimated GFR < 15 mL/min/1.73m2 FBS 106 H 60-99 mg/dL A fasting glucose from 100-125 mg/dl is considered impaired (pre-diabetes). CA 8.8 8.4-10.2 mg/dL AST (GOT) 19 5-37 U/L ALT (GPT) 17 0-40 U/L Triglyceride 205 H <150 mg/dL Desirable Triglyceride: less than 150 mg/dL Borderline High Triglyceride 150-199 mg/dL High Triglyceride: 200-499 mg/dL Very High Triglyceride: greater than or equal to 5OO mg/dL Cholesterol 273 H <200 mg/dL Desirable Cholesterol: less than 200 mg/dL Borderline High Cholesterol: 200-239 mg/dL High Cholesterol: greater than 239 mg/dL LDL Calculated 174 H <100 mg/dL Desirable LDL: less than 100 mg/dL Near Optimal/Above Optimal LDL: 110-129 mg/dL Borderline High LDL: 130-159 mg/dL High LDL: 160-189 mg/dL Very High LDL: greater than or equal to 190 mg/dL HDL 58 >40 mg/dL Desirable HDL: greater than 40 mg/dL Note: This HDL assay may give artificially low results in patients with liver disease. Vitamin D 25-OH 40.4 >30 ng/mL Health Based Reference Values* < 20 ng/mL Deficient 20-30 ng/mL Insufficient > 30 ng/mL Sufficient Coding Level of Care Code Est Pt Level 4 (25202) Complex EM visit Add On G2211 Diagnoses Essential hypertension I10 Mixed dyslipidemia E78.2 Impaired fasting glucose R73.01 Generalized anxiety disorder F41.1 Additional Codes SEE-7 Assessment Billing - SEE-7 Assessment Tool: SEE-7 Assessment 67496 ([id number]) Assessment & Plan Assessment & Plan (1) Essential hypertension: Code(s): I10 - Essential (primary) hypertension Category: Medical Plan: Blood pressure at goal of less than 130/80. Continue diltiazem HCL ER 240 mg daily, lisinopril 10 mg daily. Reinforced importance of following a low sodium diet, getting regular exercise, and lowering stress levels. (2) Mixed dyslipidemia: Comment: Patient will try to improve diet and exercise. Will also start to utilize more consumption of healthy fish Code(s): E78.2 - Mixed hyperlipidemia Category: Medical Plan: Reviewed recent fasting lipid profile with patient with higher LDL cholesterol as compared to last check. Continued with ezetimibe 10 mg daily and reinforced adherence to low-cholesterol diet and regular exercise, at least 30 minutes 3 to 4 times a week. Advised patient to make healthy food choices, eat more fruits, vegetables, whole grains, wild caught fish and low-fat dairy. Limit amount of meat and fried or fatty food products, as well as processed foods and fast foods. Follow-up scheduled with repeat fasting lipid panel in 3 months. Referred to [facility] for dietary guidance regarding high cholesterol levels (3) Impaired fasting glucose: Code(s): R73.01 - Impaired fasting glucose Category: Medical Plan: Your previous fasting blood sugars were elevated above 100 mg/dL. Impaired glucose metabolism increases the risk for developing diabetes mellitus type 2, as well as heart attack and stroke later on. Lifestyle changes that promotes weight loss, healthy eating habits, and regular exercise are important, and can prevent the progression to diabetes (4) Generalized anxiety disorder: Comment: Patient was being treated with psychiatrist. Recently lost contact with his provider, he met with in office liaison to establish new psychiatric provider. Utilizes paroxetine and clonazepam good effect, [facility] Code(s): F41.1 - Generalized anxiety disorder Category: Medical Plan: Currently followed at [facility] by Michelle Gonsalez , takes clonazepam 0.5 mg once a day as needed for acute anxiety attacks and on paroxetine ER 25 mg daily Orders: Orders Vitamin D 25-OH Total 3 Months E55.9 - Vitamin D deficiency, unspecified, E78.2 - Mixed hyperlipidemia, F41.1 - Generalized anxiety disorder, I10 - Essential (primary) hypertension, R73.01 - Impaired fasting glucose, Z01.84 - Encounter for antibody response examination Aspartate Amino Transferase 3 Months E55.9 - Vitamin D deficiency, unspecified, E78.2 - Mixed hyperlipidemia, F41.1 - Generalized anxiety disorder, I10 - Essential (primary) hypertension, R73.01 - Impaired fasting glucose, Z01.84 - Encounter for antibody response examination Hemoglobin A1c 3 Months E55.9 - Vitamin D deficiency, unspecified, E78.2 - Mixed hyperlipidemia, F41.1 - Generalized anxiety disorder, I10 - Essential (primary) hypertension, R73.01 - Impaired fasting glucose, Z01.84 - Encounter for antibody response examination Lipid Panel 3 Months E55.9 - Vitamin D deficiency, unspecified, E78.2 - Mixed hyperlipidemia, F41.1 - Generalized anxiety disorder, I10 - Essential (primary) hypertension, R73.01 - Impaired fasting glucose, Z01.84 - Encounter for antibody response examination Basic Metabolic Panel Fasting 3 Months E55.9 - Vitamin D deficiency, unspecified, E78.2 - Mixed hyperlipidemia, F41.1 - Generalized anxiety disorder, I10 - Essential (primary) hypertension, R73.01 - Impaired fasting glucose, Z01.84 - Encounter for antibody response examination Alanine Aminotransferase 3 Months E55.9 - Vitamin D deficiency, unspecified, E78.2 - Mixed hyperlipidemia, F41.1 - Generalized anxiety disorder, I10 - Essential (primary) hypertension, R73.01 - Impaired fasting glucose, Z01.84 - Encounter for antibody response examination Varicella IgG Antibody 3 Months E55.9 - Vitamin D deficiency, unspecified, E78.2 - Mixed hyperlipidemia, F41.1 - Generalized anxiety disorder, I10 - Essential (primary) hypertension, R73.01 - Impaired fasting glucose, Z01.84 - Encounter for antibody response examination
--- OUTSIDE RECORDS SUMMARY | 2025-07-08 14:22 | XMS_ITS | Patient Health Record ---
Author Organization [facility] Address [address] [place] [address] Care Team Providers Care Manager Privacy Name Role Phone Arsenio MATTHEWS, Deja Cabrera Primary Care Provider Un available Marco A Heriberto Unavailable [phone] Allergies Allergen (clinical drug ingredient) Drug/Non Drug [...] X ray : Foot, right 3V 08/01/2020 [id number], [id number]/[id number], JOINT/BURSA 1 10/12/2019 Insurance Providers Payer Name Payer Address Payer Phone Subscriber Number Group Number Insured Name Patient Relationship to Insured Coverage Start Date Coverage End Date [facility] [id number] [address] [address] [place] [address] [id number] Vijya Kirk i Self - patient is the insured Medical (General) History Medical History History ICD Code Anxiety High blood pressure Surgical History Surgery Date(Month/Year) neck surgery back surgery appendectomy 81 elbow sx, bilateral
--- OUTSIDE RECORDS SUMMARY | 2025-07-08 14:22 | XMS_ITS | Clinical Summary ---
Author Organization [address] [facility] Address [address] [place] [address] Phone Care Team Providers Care Street Commissioner Name Role Phone Deja Cesar MD Primary Care Provider [phone] Allergies Active Allergy Reactions Criticality Noted Date Comments Codeine 04/18/2017 Other Reaction(s): Not available Mqfdcdq-Zcu-Eds Reductase Inhibitors 07/05/2025 Joint pain Medications meloxicam (MOBIC) 15 mg tablet 05/29/2025 Active acetaminophen (TYLENOL 8 HOUR) 650 mg 8 hr tablet A ctive tamsulosin (FLOMAX) 0.4 mg 24 hr capsule Active PARoxetine CR (PAXIL-CR) 25 mg 24 hr tablet Active lisinopriL (PRINIVIL,ZESTRIL) 10 mg tablet Active ezetimibe (ZETIA) 10 mg tablet 05/09/2025 Active Active Problems Problem Noted Date Diagnosed Date Other spondylosis with radiculopathy, lumbar reg ion 07/05/2025 Assessment & Plan (07/05/2025 6:34 PM EDT): I reviewed the imaging findings directly with [...] left L3 transforaminal injection was suggested by [facility] but does not appear that this was scheduled or performed. I recommended that the patient follow-up with them to proceed with that injection as it will help us localize if this is the source of his leg pain. If he has a positive response, we can discuss whether to continue with pain management or consider surgical intervention. Using a spine model, I demonstrated how an interbody fusion would give him support by recreating disc height which then indirectly relieves foraminal stenosis. He will follow-up with us after his treatment at [facility]. Encounters Date Type Department Care Team Description 07/05/2025 1:30 PM EDT Consult [facility]surgery [facility] - [address] [place] [address] Daniela Guajardo MD Other spondylosis with radiculopathy, lumbar region (Primary Dx) from Last 3 Months Surgical History Surgery Date Site/Laterality Comments ELBOW SURGERY Bilateral ulnar decompression NECK SURGERY cervical decomp/neris PROSTATE SURGERY procedure for enlarged prostate BACK SURGERY MILD porcedure Medical History Medical History Date Comments Hyperlipidemia Hypertension Social History Tobacco Use Types Packs/Day Years Used Date Smoking Tobacco: Never Assessed Sex and Gender Information Value Date Recorded Sex Assigned at Not on file Legal Sex Male 2:43 PM EST Gender Identity Not on file Sexual Orientation Not on file Obstetrics History Last Filed Vital Signs Vital Sign Reading Time Taken Comments Blood Pressure - - Pulse - - Temperature - - Respiratory Rate - - Oxygen Saturation - - Inhaled Oxygen Concentration - - Weight 89.8 kg (198 lb) 07/05/2025 1:36 PM EDT Height 185.4 cm (6' 1 ) 07/05/2025 1:36 PM EDT Body Mass Index 26.12 07/05/2025 1:36 PM EDT Plan of Treatment Health Maintenance Due Date Last Done Comments Colorectal Cancer Screening: Colonoscopy 1960 Pneumococcal Vaccine: 50+ Years (1 of 1 - PCV) 2011 Zoster Vaccines (1 of 2) 2011 Depression Screening 10/03/2024 COVID-19 Vaccine (3 - 2024-2 6 season) 2025 01/23/2021, 01/02/2021 Influenza Vaccine (#1) 2025 Cholesterol Screening (Lipid Panel) 06/14/2025 HIV Screening 06/14/2025 Hepatitis C Screening 06/14/2025 Social Influencers of Health Screening 06/14/2025 DTaP,Tdap,and Td Vaccines (2 - Td or Tdap) 09/15/2025 09/15/2015 RSV Immunization Adult Patients (1 - 1-dose 75+ series) 2036 MMR Vaccines Aged Out 03/30/2019 No longer eligi ble based on patient's age to complete this topic HIB Vaccines Aged Out No longer eligi [...] to complete this topic RSV Immunization Patients Under 20 months Aged Out No longer eligible b ased on patient's age to complete this topic Varicella Vaccines Aged Out No longer eligible based on patient's age to complete this topic Insurance [facility] Care Teams Street Commissioner Relationship Specialty Start Date End Date Deja Cesar MD [address] [place] [address] PCP - General Internal Medicine 07/05/25
== END 2025-07-08 12:54 | disposition home or self-care (01) ==
LOC: HO.HMCC 11:49
PROVIDERS: PCP Internal Medicine; Visit Provider Internal Medicine
DX: I10 Essential (primary) hypertension (principal); E78.2 Mixed hyperlipidemia; R73.01 Impaired fasting glucose; F41.1 Generalized anxiety disorder

== ENCOUNTER → 2025-07-08 11:49 | Outpatient (BNVA) | payer OTHER, SELFPAY | PROVIDERS: PCP Internal Medicine; Visit Provider Internal Medicine | DX: I10 Essential (primary) hypertension (principal); E78.5 Hyperlipidemia, unspecified; E55.9 Vitamin D deficiency, unspecified; E78.2 Mixed hyperlipidemia; R73.01 Impaired fasting glucose; F41.1 Generalized anxiety disorder; Z56.6 Other physical and mental strain related to work | CPT/HCPCS: 96127 ==